=== PATIENT | female | born 1955 | race Caucasian/White ===

== ENCOUNTER → 2017-08-25 10:12 | Outpatient (CLI) | payer OTHER, SELFPAY ==
--- NOTE | 2017-08-25 10:17 | CDU_ITS ---
Reason For Study: Stenosis Rt. Velocities/BP Lt. Velocities/BP Prox CCA 113/31 cm/sec. Prox CCA 114/31 cm/sec. Mid CCA 80/22 cm/sec. Mid CCA 97/28 cm/sec. Dist CCA 73/22 cm/sec. Dist CCA 71/26 cm/sec. Prox ICA 77/22 cm/sec. Prox ICA 91/25 cm/sec. Mid ICA 68/30 cm/sec. Mid ICA 67/30 cm/sec. Dist ICA 73/35 cm/sec. Dist ICA 99/43 cm/sec. Rt. ICA/CCA = 0.96. Lt. ICA/CCA = 1.02. Prox ECA 71/19 cm/sec. Prox ECA 68/15 cm/sec. Rt. Vert. 42/16 cm/sec. Lt. Vert. 43/18 cm/sec. Right Extracranial There is intimal thickening but no significant atherosclerotic plaque noted in the right common carotid artery. There is no significant atherosclerotic plaque noted in the right internal carotid artery. The right internal carotid artery is very tortuous. There is no significant atherosclerotic plaque noted in the right external carotid artery. Antegrade flow is noted in the right vertebral artery. Left Extracranial There is heterogeneous, irregular atherosclerotic plaque noted in the left common carotid artery. There is no significant atherosclerotic plaque noted in the left internal carotid artery. The left internal carotid artery is very tortuous. There is no significant atherosclerotic plaque noted in the left external carotid artery. Antegrade flow is noted in the left vertebral artery. Procedure Carotid Duplex [id number]. Exam performed in department. Interpretation Summary Mild (<50%) stenosis right extracranial internal carotid. Mild (<50%) stenosis left extracranial internal carotid. Flow within the vertebral arteries is antegrade bilaterally. Ordering Physician: Agnes Velazquez Referring Physician: Agnes Velazquez Performed By: Sharon Rosales, RDCS, RVT
== END ==
PROVIDERS: Family Provider Internal Medicine; PCP Internal Medicine; Visit Provider Internal Medicine
DX: I65.23 Occlusion and stenosis of bilateral carotid arteries (principal)
CPT/HCPCS: 93880

== ENCOUNTER → 2017-10-24 12:40 | Outpatient (CLI) | payer OTHER, SELFPAY ==
--- NOTE | 2017-10-24 12:51 | CT_ITS ---
STUDY: CT ABDOMEN AND PELVIS WITH CONTRAST REASON FOR EXAM: Female, 61 years old. 2 day history of left-sided abdominal pain. RADIATION DOSAGE (If Supplied By Facility): CTDIvol = ( 18.38 ) mGy, DLP = ( 1164.62 ) mGycm TECHNIQUE: Transaxial images were obtained from the dome of the diaphragm to the symphysis pubis without oral contrast. 100CC ml of Isovue 300 contrast was administered. Sagittal and coronal images were reconstructed. Individualized dose optimization techniques were used for this CT. COMPARISON: None. FINDINGS: Increased markings at the left lung base suggestive of possible scarring and/or atelectasis. The visualized portions of the heart are within normal limits. There is decreased attenuation of the liver consistent with steatosis. Normal gallbladder and extrahepatic biliary system. Normal spleen. There is diffuse atrophy of the pancreas. Normal bilateral adrenal glands. Normal right kidney. Normal left kidney. There is a large hiatal hernia composed mostly of the fundus of the stomach. Normal small intestine. There is diverticulosis, with thickening of the colon wall, and pericolonic inflammation changes consistent with acute diverticulitis. The appendix is visualized and appears normal. Normal abdominal aorta. Normal inferior vena cava. Normal retroperitoneum. Normal urinary bladder. Evidence of bilateral tubal ligation. There is a left-sided inguinal hernia containing adipose tissue. There are degenerative changes of the visualized lumbar spine. CT/Abdomen/Pelvis WITH Contrast IMPRESSION: Diffuse fatty infiltration of the liver. Findings ventricular noncomplicated acute sigmoid diverticulitis. Electronically Signed: Jose Miguel Prado MD at 13:23 EDT Tel [phone], Service support ,
[2017-10-24 13:05] LABS: CREATININE FINGERSTICK 0.8 mg/dL (0.55-1.02); EGFR FINGERSTICK > 60.0000 mL/min (>60)
[2017-10-24 13:12] LABS: ALB/GLOB Ratio 0.7 RATIO (0.9-2.4); AST(SGOT) 15 U/L (15-37); Alanine Aminotransfer ALT/SGPT 16 U/L (13-56); Albumin, Serum 3.2 g/dL (3.2-5.0); Alkaline Phosphatase 93 U/L (45-117); Anion Gap 8 (5-15); BUN 13 mg/dL (7-18); BUN/Creat Ratio 14.1 RATIO (10-20); Calcium,Total 8.9 mg/dL (8.5-10.1); Chloride 106 mmol/L (98-107); Creatinine, Serum 0.92 mg/dL (0.55-1.02); EST Glomerular Filtration Rate 66 mL/min (>60); Est Glom Filt Rate - Afr Amer 79 mL/min (>60); Globulin 4.3 g/dL (2.2-4.2); Glucose 124 mg/dL (74-106); Potassium 3.7 mmol/L (3.5-5.1); Protein, Total 7.5 g/dL (6.4-8.2); Sodium Level 141 mmol/L (136-145)
== END ==
PROVIDERS: Family Provider Internal Medicine; PCP Internal Medicine; Visit Provider Nurse Practitioner Gerontology
DX: R10.9 Unspecified abdominal pain (principal)
CPT/HCPCS: 36415; 74177; 80053; Q9967

== ENCOUNTER → 2017-12-13 13:01 | Outpatient (CLI) | payer OTHER, SELFPAY ==
[2017-12-13 13:26] LABS: Absolute Lymphocyte Count 2.66 X10^3/ul (0.83-4.51); Basophil# 0.03 X10^3/uL; Basophil% 0.3 % (0-1); Eosinophils% 0.9 % (0-5); Hematocrit 41.3 % (37-47); Hemoglobin 13.1 g/dl (12.0-15.0); Lymphocyte # 2.66 X10^3/ul (4.0); Mean Corp Hgb Conc 31.7 g/gl (32-36); Mean Corpuscular Hgb 27.3 pg (27.0-32.0); Mean Platelet Vol. 11.1 fl (6.2-12.0); Monocyte# 0.85 X10^3/uL; Neutrophil # 6.99 X10^3/uL (2.7-7.7); Neutrophil % 65.5 % (47-70); Platelet Count 286 K/mm3 (150-450); RBC Distribution Width CV 14.8 % (11.6-14.6); RBC Distribution Width SD 47.2 fl (35.1-43.9); White Blood Count 10.7 K/mm3 (4.4-11.0)
[2017-12-13 13:27] LABS: POSITIVE COUNT NO; POSITIVE DIFFERENTIAL NO; POSITIVE MORPHOLOGY NO
[2017-12-13 13:36] LABS: ALB/GLOB Ratio 0.7 RATIO (0.9-2.4); AST(SGOT) 13 U/L (15-37); Alanine Aminotransfer ALT/SGPT 17 U/L (13-56); Albumin, Serum 3.1 g/dL (3.2-5.0); Alkaline Phosphatase 96 U/L (45-117); Anion Gap 11 (5-15); BUN 13 mg/dL (7-18); BUN/Creat Ratio 13.1 RATIO (10-20); Calcium,Total 9.1 mg/dL (8.5-10.1); Chloride 103 mmol/L (98-107); Creatinine, Serum 0.99 mg/dL (0.55-1.02); EST Glomerular Filtration Rate 60 mL/min (>60); Est Glom Filt Rate - Afr Amer 73 mL/min (>60); Globulin 4.5 g/dL (2.2-4.2); Glucose 128 mg/dL (74-106); Potassium 3.7 mmol/L (3.5-5.1); Protein, Total 7.6 g/dL (6.4-8.2); Sodium Level 141 mmol/L (136-145)
== END ==
PROVIDERS: Family Provider Internal Medicine; PCP Internal Medicine; Visit Provider Nurse Practitioner
DX: R10.9 Unspecified abdominal pain (principal)
CPT/HCPCS: 36415; 74177; 80053; 85025; Q9967

== ENCOUNTER 2018-04-21 04:32 | Emergency (ER) | payer OTHER, SELFPAY ==
[2018-04-21 04:33] VITALS: BP 157/92; PULSE 104; RESP 16; TEMP 36.7; O2SAT 95; BMI 40.1
--- NOTE | 2018-04-21 04:43 | RAD_ITS ---
STUDY: X-RAY CHEST REASON FOR EXAM: Female, 62 years old. Vomiting, fatigue, chills, chest pain, shortness of breath onset this evening. Flulike symptoms or couple weeks. TECHNIQUE: PA and lateral views of the chest. COMPARISON: None. FINDINGS: Large hiatal hernia. There are superimposed monitor leads. The lungs are clear and expanded. There is no demonstrated pleural abnormality. Normal size heart. Normal mediastinum and alejandrina. Normal visualized pulmonary arteries. There is mild atherosclerotic tortuosity of the aortic arch and descending thoracic aorta. There are diffuse degenerative changes of the visualized thoracic spine. Normal visualized ribs, clavicles, and shoulders. There is no demonstrated abnormality of the visualized soft tissue structures of the upper abdomen. RAD/Chest PA and Lateral IMPRESSION: Large hiatal hernia. No pulmonary edema, congestive heart failure or confluent pneumonia. Other nonacute findings as outlined above. Electronically Signed: Loren Braxton MD at 5:11 EST , Service support ,
--- NOTE | 2018-04-21 04:43 | EKG12_ITS ---
Test Reason : CP Blood Pressure : / mmHG Vent. Rate : 102 BPM Atrial Rate : 102 BPM P-R Int : 134 ms QRS Dur : 074 ms QT Int : 358 ms P-R-T Axes : 050 079 050 degrees QTc Int : 466 ms Sinus tachycardia Nonspecific ST abnormality Abnormal ECG Confirmed by ALKA GAY, LINK ([id number]), managing editor LILLIE HASSAN ([id number] on 04/24/2018 4:36:52 PM Referred By: CYNTHIA Confirmed By:LINK RUCKER MD
--- NOTE | 2018-04-21 04:45 | ED.RN ---
NO OLD EKGS IN MUSE.
[2018-04-21 05:02] LABS: Absolute Lymphocyte Count 0.67 X10^3/ul (0.83-4.51); Absolute Neutrophil Count 6.9 X10^3/uL (2.0-7.7); Basophil# 0.01 X10^3/uL; Basophil% 0.1 % (0-1); Eosinophil# 0.02 X10^3/uL; Eosinophils% 0.3 % (0-5); Hematocrit 39.3 % (37-47); Hemoglobin 12.1 g/dl (12.0-15.0); Lymphocyte # 0.67 X10^3/ul (4.0); Lymphocyte % 8.6 % (19-41); Mean Corp Hgb Conc 30.8 g/gl (32-36); Mean Corpuscular Hgb 24.9 pg (27.0-32.0); Mean Platelet Vol. 10.6 fl (6.2-12.0); Monocyte# 0.16 X10^3/uL; Monocyte% 2.1 % (0-10); Neutrophil # 6.87 X10^3/uL (2.7-7.7); Neutrophil % 88.6 % (47-70); Platelet Count 293 K/mm3 (150-450); RBC Distribution Width CV 15.4 % (11.6-14.6); RBC Distribution Width SD 45.7 fl (35.1-43.9); Red Blood Count 4.85 M/mm3 (4.2-5.4); White Blood Count 7.8 K/mm3 (4.4-11.0)
[2018-04-21 05:05] LABS: POSITIVE COUNT NO; POSITIVE DIFFERENTIAL NO; POSITIVE MORPHOLOGY NO
[2018-04-21] MEDS: Aspirin 81 MG TAB.CHEW 324 MG PO (05:06)
[2018-04-21] MEDS: Mag Hydrox/Al Hydrox/Simeth 30 ML UDC PO (05:14)
[2018-04-21 05:19] LABS: Anion Gap 11 (5-15); BUN 19 mg/dL (7-18); BUN/Creat Ratio 20.7 RATIO (10-20); Calcium,Total 8.6 mg/dL (8.5-10.1); Chloride 107 mmol/L (98-107); Creatinine, Serum 0.92 mg/dL (0.55-1.02); EST Glomerular Filtration Rate 66 mL/min (>60); Est Glom Filt Rate - Afr Amer 80 mL/min (>60); Estimated Creatinine Clearance 47.23 ml/min; Glucose 169 mg/dL (74-106); Potassium 3.6 mmol/L (3.5-5.1); Sodium Level 143 mmol/L (136-145)
--- NOTE | 2018-04-21 05:38 | ED.DCSUM_ITS ---
- ER Visit Summary Date of Service: 04/21/18 Chief Complaint: Chest pain History of Present Illness: The patient is a 62 F presenting for evaluation secondary to chest pain. Patient reports that this evening she had an onset of chest pain at about 1:00. Patient states that at about 7 PM she had feelings of general illness including chills fever and nausea that progressed to vomiting. Patient reports that she has had a history of prior similar episodes in the past. She has a history of having a large hiatal hernia. Patient states that she has a continuous aching pressure type pain in her chest and upper abdomen. It is not associated with any sort of exacerbation with ambulation. It is associated with some belching and reflux type sensations. No shortness of breath. Patient has had a distant catheterization with no stents and a stress echo performed 3 years ago that was found to be negative. She has an underlying history of diabetes hypertension high cholesterol denies any DVT or PE risk factors. Physical Examination: Vital signs are within normal limits, patient is afebrile. General: Patient is well-nourished well-developed and in no acute distress. Head: Normocephalic, atraumatic Eyes: Pupils equal round and reactive bilaterally, extra occular motion intact bialterally ENT: Moist mucous membranes Neck: Supple, no lymphadenopathy, no JVD, no meningismus CVS: Heart regular rhythm minimal tachycardia, no murmurs, rubs or gallops, radial pulses 2+ bilaterally, 2+ PT pulses bilaterally symmetric Resp: Respirations nondistressed, lung sounds clear bilaterally Abdomen: Soft, minimal non-localizing tenderness to palpation with no guarding or rebound, nondistended, no palpable masses, normal bowel sounds Back: Nontender Extremities: Nontender, atraumatic, active full range of motion, no peripheral edema Skin: warm, no rashes, no petechia Neuro: Alert and oriented x 4, CN 2-12 intact, no lateralizing neurological defecits Psyc: Normal affect Test Results: EKG shows a sinus rate of [address] segments normal T waves. CBC chemistry and troponin are unremarkable. Chest x-ray demonstrates a large hiatal hernia which is per the patient's baseline Emergency Department Course and Treatment: Patient presented for evaluation secondary to chest pain. The patient's story that she gives really seems more consistent with dyspepsia, she was worked up for the possibility of cardiac etiology and was found to be negative. Patient's heart score is 3. Patient had improvement with aspirin and a GI cocktail. I reviewed patient's records and she had a normal stress echo about 3 years ago. This really seems consistent with a etiology of GI rather than cardiac or pulmonary. Patient was given reassurance and was discharged with follow-up with primary care. Disposition: Discharge Impression: 1. Dyspepsia 2. Hiatal hernia This note was generated with [employer] dictation software. It may contain incorrect words, spelling, and punctuation that were not noted in review of the chart prior to signing ED Disposition - Plan for ED Patient: Disposition: Home or Assisted Living Chief Complaint: Chest Pain Diagnosis: Dyspepsia, Hiatal hernia Instructions: What Is a Hiatal Hernia?, ED GERD Referrals: Agnes Velazquez DO [Primary Care Provider] - 1-2 Weeks
[2018-04-21 05:41] VITALS: BP 138/78; PULSE 94; RESP 16; O2SAT 95
== END 2018-04-21 05:48 | disposition home or self-care (01) ==
PROVIDERS: Emergency Provider Emergency Medicine; Family Provider Internal Medicine; PCP Internal Medicine
DX: R10.13 Epigastric pain (principal); K44.9 Diaphragmatic hernia without obstruction or gangrene; E11.9 Type 2 diabetes mellitus without complications; I10 Essential (primary) hypertension; E78.00 Pure hypercholesterolemia, unspecified; Z79.899 Other long term (current) drug therapy
CPT/HCPCS: 71046; 80048; 84484; 85025; 93005; 99285; A4216

== ENCOUNTER 2018-09-25 16:02 | Inpatient (IN) | payer OTHER, SELFPAY ==
[2018-09-25] VITALS (12 sets, daily range): BP systolic 121–164; BP diastolic 62–93; PULSE 62–78; RESP 13–18; TEMP 35.8–36.8; O2SAT 94–99; BMI 38.7; BMI 38.8; BMI 38.9
--- NOTE | 2018-09-25 16:05 | EKG12_ITS ---
Test Reason : CP Blood Pressure : / mmHG Vent. Rate : 074 BPM Atrial Rate : 074 BPM P-R Int : 148 ms QRS Dur : 076 ms QT Int : 410 ms P-R-T Axes : 042 039 040 degrees QTc Int : 455 ms Normal sinus rhythm Normal ECG Confirmed by CANDI ERVIN ([id number]), commissioning editor SWAPNA SKAGGS ([id number]) on 10/01/2018 10:20:34 AM Referred By: Amita Tsai Confirmed By:CANDI ERVIN
--- NOTE | 2018-09-25 16:15 | ED.DCSUM_ITS ---
History of Present Illness Chief Complaint: General Illness Informant: Patient Onset: Weeks - 2 Narrative: Patient sent in from PCP office for concerns for hyperglycemia with weakness. I discussed with Dr. Carvalho prior to her arrival. patient seen in the office, reporting worsening symptoms or last 2 weeks with polyuria and polydipsia. Patient known to be prediabetic last year. Patient did not follow-up with glucose testing. She is a history of asthma doing intermittent steroids last time was a few months ago. Reports that her symptoms, had a A1c today of 12.5. Reports during IV drawls, she had a vasovagal syncopal episode. She was orthostatic positive. EKG performed in the office reported with no acute changes. Complaint of increasing weakness has been on and off for the past few months. No chest pains, no cough. No fevers. Past med history of asthma, hypertension, fatty liver, hypothyroidism, anxiety. Prior similar symptoms: No Past Medical History - Allergies and Home Meds Allergies/Adverse Reactions: Allergies Penicillins [PCN] Allergy (Verified 09/25/18 16:03) Anaphylaxis Primary Care Physician: Agnes Velazquez DO [Primary Care Provider] - Smoking Status: Never smoker Review of Systems General: Denies: Chills, Fever, Sweats Eyes: Denies: Visual changes - bilaterally, Diplopia ENT: Denies: Rhinorrhea, Sore throat Cardiovascular: Denies: Chest pain, Palpitations Respiratory: Denies: Dyspnea, Cough, Dyspnea on exertion Gastrointestinal: Denies: Abdominal pain, Nausea, Vomiting, Diarrhea, Melena, Hematochezia Genitourinary: Denies: Dysuria, Hematuria, Frequency Musculoskeletal: Denies: Back pain, Extremity Pain Skin: Denies: Rash, Wounds Neurological: Denies: Headache, Weakness, Numbness Endocrine: Reports: Polyuria, Polydipsia Physical Exam Vital Signs/Narrative: Vital Signs Temp Pulse Resp BP Pulse Ox 09/25/18 16:03 98.3 F 77 18 131/93 H 94 Inital Vital Signs reviewed: Yes General: Well nourished, Well developed, No Acute Distress, - - mild fatigue Head: Normocephalic, Atraumatic Eyes: Perrl, EOMI ENT: Moist mucous membranes, No rhinorrhea Neck: Supple, Nontender Cardiovascular: Regular rate, Regular rhythm, No murmurs Respiratory: No distress, CTA bilaterally, Chest nontender Abdomen: Soft, Nontender, Nondistended, Normal bowel sounds Back: Nontender, Normal Inspection Extremities: Nontender, No edema Skin: Normal color, No rash Neurological: Alert, Oriented x3, Cranial nerves II-XII grossly intact, Normal Strength, Normal Sensation Psychological: Normal affect, Normal Mood Diagnostic/Tx/Re-eval Abnormal Lab Results 09/25/18 09/25/18 09/25/18 16:35 16:35 16:35 WBC 8.2 RBC 5.47 H Hgb 14.1 Hct 42.8 MCV 78.2 L MCH 25.8 L MCHC 32.9 RDW 15.5 H RDW Differential 44.6 H Plt Count 237 MPV 12.3 H Immature Gran % (Auto) 0.200 Neut % (Auto) 60.6 Lymph % (Auto) 28.8 Pettis % (Auto) 9.2 Eos % (Auto) 0.7 Baso % (Auto) 0.5 Absolute Neuts (auto) 5.0 Absolute Lymphs (auto) 2.35 Total Counted Not Reportable Differential Comment SCANNED Plt Morphology Comment LARGE Sodium 134 L Potassium 2.4 L* Chloride 97 L Carbon Dioxide 18.0 L Anion Gap 19 H BUN 16 Creatinine 0.96 Estim Creat Clear Calc 45.26 Est GFR (MDRD) Af Amer 76 Est GFR (MDRD) Non-Af 63 BUN/Creatinine Ratio 16.7 Glucose 341 H Calcium 8.8 Total Bilirubin 0.60 AST 20 ALT 19 Alkaline Phosphatase 99 Total Protein 7.3 Albumin 3.3 Globulin 4.0 Albumin/Globulin Ratio 0.8 L Urine Color Urine Clarity Urine pH Ur Specific [place] Urine Protein Urine Glucose (UA) Urine Ketones Urine Occult Blood Urine Nitrite Urine Bilirubin Urine Urobilinogen Ur Leukocyte Esterase Urine RBC Urine WBC Ur Squamous Epith Cells Amorphous Sediment Urine Bacteria Urine Mucus Urine Yeast Acetone Level MODERATE H POC Glucose 09/25/18 09/25/18 17:12 17:50 WBC RBC Hgb Hct MCV MCH MCHC RDW RDW Differential Plt Count MPV Immature Gran % (Auto) Neut % (Auto) Lymph % (Auto) [place] % (Auto) Eos % (Auto) Baso % (Auto) Absolute Neuts (auto) Absolute Lymphs (auto) Total Counted Differential Comment Plt Morphology Comment Sodium Potassium Chloride Carbon Dioxide Anion Gap BUN Creatinine Estim Creat Clear Calc Est GFR (MDRD) Af Amer Est GFR (MDRD) Non-Af BUN/Creatinine Ratio Glucose Calcium Total Bilirubin AST ALT Alkaline Phosphatase Total Protein Albumin Globulin Albumin/Globulin Ratio Urine Color Yellow Urine Clarity Sl. Cloudy Urine pH 5.0 Ur Specific [place] 1.025 Urine Protein 15 H Urine Glucose (UA) 1000 H Urine Ketones 150 H Urine Occult Blood Negative Urine Nitrite Negative Urine Bilirubin Negative Urine Urobilinogen Normal Ur Leukocyte Esterase 100 H Urine RBC 0 SEEN Urine WBC 5-10 SEEN Ur Squamous Epith Cells 0-5 SEEN Amorphous Sediment 1+ URATE Urine Bacteria 0 SEEN Urine Mucus 0 SEEN Urine Yeast 1+ Acetone Level POC Glucose 336 H - EKG Initial EKG Interpretation: Sinus Rhythm - Sinus rate of 75, no ST or T wave changes. QTc 482. - Medical Decision Making Patient nontoxic, IV fluids initiated. History of polyuria and polydipsia, DKA work-up initiated. Glucose 360, gap of 19, moderate ketones. Order for total 2 L normal saline to be bolus and continued IV fluids. Potassium 2.4. Magnesium added, able to tolerate oral therefore 40 mEq of potassium was ordered. EKG obtained sinus rate of 75 no acute changes. Patient with no focal neurological deficits. History syncopal after IV placement in the office. Likely vasovagal. Discussed with hospitalist Dr. Tsai, with patient being insulin na?ve will start after normal insulin dosing for drip. Patient was admitted to ICU. I did speak with strip mill operator Dr. Lopez and updated. - Critical Care Time Critical care time (excluding procedures): 30-74 minutes, Discussing w/Patient &/or Family/Consumer Loan Officer, Discussing w/Consultants, Arranging Admission or Transfer ED Disposition - Plan for ED Patient: Disposition: Acute Care Hospital [facility] Diagnosis: Diabetic ketoacidosis, Diabetes mellitus, new onset, Hypokalemia Referrals: Agnes Velazquez DO [Primary Care Provider] -
[2018-09-25] MEDS: 0.9% Normal Saline 1,000 ML 1000 ML IV (16:43)
[2018-09-25 17:20] LABS: Bedside Glucose 336 mg/dL (70-110)
[2018-09-25 17:22] LABS: ALB/GLOB Ratio 0.8 RATIO (0.9-2.4); AST(SGOT) 20 U/L (15-37); Alanine Aminotransfer ALT/SGPT 19 U/L (13-56); Albumin, Serum 3.3 g/dL (3.2-5.0); Alkaline Phosphatase 99 U/L (45-117); Anion Gap 19 (5-15); BUN 16 mg/dL (7-18); BUN/Creat Ratio 16.7 RATIO (10-20); Calcium,Total 8.8 mg/dL (8.5-10.1); Chloride 97 mmol/L (98-107); Creatinine, Serum 0.96 mg/dL (0.55-1.02); EST Glomerular Filtration Rate 63 mL/min (>60); Est Glom Filt Rate - Afr Amer 76 mL/min (>60); Estimated Creatinine Clearance 45.26 ml/min; Glucose 341 mg/dL (74-106); Potassium 2.4 mmol/L (3.5-5.1); Protein, Total 7.3 g/dL (6.4-8.2); Sodium Level 134 mmol/L (136-145)
[2018-09-25 17:25] LABS: Absolute Lymphocyte Count 2.35 X10^3/ul (0.83-4.51); Basophil# 0.04 X10^3/uL; Basophil% 0.5 % (0-1); Eosinophil# 0.06 X10^3/uL; Eosinophils% 0.7 % (0-5); Hematocrit 42.8 % (37-47); Hemoglobin 14.1 g/dl (12.0-15.0); Lymphocyte # 2.35 X10^3/ul (4.0); Lymphocyte % 28.8 % (19-41); Mean Corp Hgb Conc 32.9 g/gl (32-36); Mean Corpuscular Hgb 25.8 pg (27.0-32.0); Mean Corpuscular Volume 78.2 fL (81-99); Mean Platelet Vol. 12.3 fl (6.2-12.0); Monocyte# 0.75 X10^3/uL; Monocyte% 9.2 % (0-10); Neutrophil # 4.95 X10^3/uL (2.7-7.7); Neutrophil % 60.6 % (47-70); Platelet Count 237 K/mm3 (150-450); RBC Distribution Width CV 15.5 % (11.6-14.6); RBC Distribution Width SD 44.6 fl (35.1-43.9); Red Blood Count 5.47 M/mm3 (4.2-5.4); White Blood Count 8.2 K/mm3 (4.4-11.0)
--- NOTE | 2018-09-25 17:25 | ED.RN ---
2.[address] HICKMAN
[2018-09-25 17:28] LABS: POSITIVE COUNT NO; POSITIVE DIFFERENTIAL NO; POSITIVE MORPHOLOGY YES
[2018-09-25 17:29] LABS: Differential Indicated SCAN CRITERIA MET
[2018-09-25] MEDS: 0.9% Normal Saline 1,000 ML 999 ML IV (17:49)
[2018-09-25] MEDS: 0.9% Normal Saline 1,000 ML 150 ML IV ×2 (17:49→20:28)
[2018-09-25 17:56] LABS: Bacteria 0 SEEN /hpf (None Seen); Mucous, Urine 0 SEEN /hpf (<or=2+); Red Blood Cells-Urine 0 SEEN /hpf (0-5)
[2018-09-25 18:01] LABS: Color, Urine Yellow (Yellow); Glucose, Dipstick 1000 mg/dl (Normal); Leukocyte Esterase-Dipstick 100 /ul (Negative); Nitrite-Dipstick Negative (Negative); Occult Blood-Urine Negative /ul (Negative); Protein-Dipstick 15 mg/dl (Negative); Specific Gravity, Urine 1.025 (1.002-1.030); Urine Bilirubin Dipstick Negative (Negative); Urine Clarity Sl. Cloudy (Clear); Urine Urobilinogen Normal (Normal)
[2018-09-25 18:11] LABS: Differential Comment SCANNED; Platelet Morphology LARGE
[2018-09-25 18:22] LABS: Ketone-Dipstick 150 mg/dl (Negative)
[2018-09-25 18:27] LABS: Amorphous Sediment 1+ URATE; Squamous Epithelial Cells - UA 0-5 SEEN /hpf (5-10); White Blood Cells 5-10 SEEN /hpf (0-5); Yeast-Urine 1+ /hpf (None Seen)
--- NOTE | 2018-09-25 18:30 | HP.PCM_ITS ---
History of Present Illness Date of Admission: 09/25/18 Chief Complaint: Abnormal labs - Hyperglycemia The patient is a 62 year old F with pmhx of prediabetes, asthma, diverticulitis, HTN, fatty liver, hiatal hernia, and hypothyroidism, who presents to the ER after being sent by her PCP for abnormal labs primarily hyperglycemia and A1C 12.5. She presents with a primary complaint of weakness. Over the past 2 weeks she has had increased thirst, drinking water all day long and constantly having to urinate without satiation. She is very tired, and has generalized all over weakness. She notes that she has lost 20 lbs over the past 2 weeks. She had some dizziness this AM, and also passed out during blood draw at the office felt to be vasovagal syncope. She had some nausea with that however now this is gone. In the ER she appears to be in DKA with blood sugar of 341, elevated anion gap of 19, moderate acetone, UA with elevated protein, glucose, and ketones. She does not have any respiratory complaints. She states her father and multiple siblings have diabetes and they all had an onset about her current age. [] Past Medical History Allergies Penicillins [PCN] Allergy (Verified 09/25/18 16:03) Anaphylaxis Home Medications: Ambulatory Orders Medication Instructions Recorded Escitalopram Oxalate [Lexapro] 10 mg PO DAILY 04/21/18 Fluticasone/Salmeterol [Advair 1 puff IH BID 04/21/18 500-50 Diskus] Hydrochlorothiazide [Hctz] 25 mg PO DAILY 04/21/18 Levothyroxine Sodium [Synthroid] 50 mg PO DAILY 04/21/18 Omeprazole 20 mg PO DAILY 04/21/18 Potassium Chloride [Klor-Con M20] 20 mcg PO DAILY 04/21/18 Simvastatin [Zocor] 10 mg PO DAILY 04/21/18 Cholecalciferol (Vitamin D3) 2,000 unit PO DAILY 09/25/18 [Vitamin D3] Diltiazem HCl [Diltiazem ER] 180 mg PO DAILY 09/25/18 Surgical History: tonsillectomy, - - tubal Psychiatric History: No pertinent psych hx 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 Denies: Chills, Fever, Weight Change HEENT: Denies: Head Aches, Sinus Congestion, Sinus Drainage Cardiovascular: Denies: Chest Pain, Palpitations Respiratory: Denies: Cough, Shortness of breath at rest, Sputum production Gastrointestinal: Denies: Abdominal Pain, Nausea, Vomiting Genitourinary: Denies: Dysuria Musculoskeletal: Denies: Joint Pain, Joint Tenderness Skin: Denies: Rash, Wounds Neurological: Denies: Numbness, Tingling, Focal weakness Psychiatric: Denies: Anxiety, Depression, Homicidal Ideations, Suicidal Ideations Hematologic/ Lymphatic: Denies: Easy Bruising, Easy Bleeding VTE Information - Inpt Only VTE Present on Admission: No VTE Mechan Device Prophylaxis: None VTE Pharm Prophylaxis ordered?: Yes - Physical Exam General: Alert, Oriented x3, Cooperative, Lethargic HEENT: Atraumatic, PERRLA, EOMI, Normocephalic Neck: Supple, No JVD, Negative Carotid Bruits Lungs: Clear to auscultation, Normal air movement Cardiovascular: Regular rate, No murmurs Abdomen: Bowel Sounds Present, Soft, Non Tender Extremities: No edema, Capillary Refill Less than 3 Seconds Skin: No rashes, No breakdown Musculoskeletal: No Tenderness to Palpation of Joints or Extremities Neurological: Cranial nerves II-XII grossly intact Psych/Mental Status: Normal Affect, Appropriate, Alert and oriented to time, place, person, mood and affect Vital Signs Temp Pulse Resp BP Pulse Ox 98.3 F 71 16 134/78 H 95 09/25/18 16:03 09/25/18 18:17 09/25/18 18:17 09/25/18 18:17 09/25/18 18:17 Oxygen Delivery Method Room Air Weight: 210 lb 5.136 oz Body Mass Index (BMI) 38.7 Finger Stick Blood Glucose 336 Laboratory Tests Past 24 Hrs 09/25/18 09/25/18 09/25/18 16:35 16:35 16:35 WBC 8.2 RBC 5.47 H Hgb 14.1 Hct 42.8 MCV 78.2 L MCH 25.8 L MCHC 32.9 RDW 15.5 H RDW Differential 44.6 H Plt Count 237 MPV 12.3 H Immature Gran % (Auto) 0.200 Neut % (Auto) 60.6 Lymph % (Auto) 28.8 Ross % (Auto) 9.2 Eos % (Auto) 0.7 Baso % (Auto) 0.5 Absolute Neuts (auto) 5.0 Absolute Lymphs (auto) 2.35 Total Counted Not Reportable Differential Comment SCANNED Plt Morphology Comment LARGE Sodium 134 L Potassium 2.4 L* Chloride 97 L Carbon Dioxide 18.0 L Anion Gap 19 H BUN 16 Creatinine 0.96 Estim Creat Clear Calc 45.26 Est GFR (MDRD) Af Amer 76 Est GFR (MDRD) Non-Af 63 BUN/Creatinine Ratio 16.7 Glucose 341 H Calcium 8.8 Magnesium Total Bilirubin 0.60 AST 20 ALT 19 Alkaline Phosphatase 99 Total Protein 7.3 Albumin 3.3 Globulin 4.0 Albumin/Globulin Ratio 0.8 L Urine Color Urine Clarity Urine pH Ur Specific [place] Urine Protein Urine Glucose (UA) Urine Ketones Urine Occult Blood Urine Nitrite Urine Bilirubin Urine Urobilinogen Ur Leukocyte Esterase Urine RBC Urine WBC Ur Squamous Epith Cells Amorphous Sediment Urine Bacteria Urine Mucus Urine Yeast Acetone Level MODERATE H 09/25/18 09/25/18 16:35 17:50 WBC RBC Hgb Hct MCV MCH MCHC RDW RDW Differential Plt Count MPV Immature Gran % (Auto) Neut % (Auto) Lymph % (Auto) Ross % (Auto) Eos % (Auto) Baso % (Auto) Absolute Neuts (auto) Absolute Lymphs (auto) Total Counted Differential Comment Plt Morphology Comment Sodium Potassium Chloride Carbon Dioxide Anion Gap BUN Creatinine Estim Creat Clear Calc Est GFR (MDRD) Af Amer Est GFR (MDRD) Non-Af BUN/Creatinine Ratio Glucose Calcium Magnesium Pending Total Bilirubin AST ALT Alkaline Phosphatase Total Protein Albumin Globulin Albumin/Globulin Ratio Urine Color Yellow Urine Clarity Sl. Cloudy Urine pH 5.0 Ur Specific [place] 1.025 Urine Protein 15 H Urine Glucose (UA) 1000 H Urine Ketones 150 H Urine Occult Blood Negative Urine Nitrite Negative Urine Bilirubin Negative Urine Urobilinogen Normal Ur Leukocyte Esterase 100 H Urine RBC 0 SEEN Urine WBC 5-10 SEEN Ur Squamous Epith Cells 0-5 SEEN Amorphous Sediment 1+ URATE Urine Bacteria 0 SEEN Urine Mucus 0 SEEN Urine Yeast 1+ Acetone Level POC Glucose 09/25/18 17:12 POC Glucose 336 H Assessment/Plan 1. New onset DMt2 with DKA - recent a1c 12.9, presents with lethargy, hyperglycemia, elevated anion gap, + acetones, + UA c/w DKA. Aggressive hydration, electrolyte replacement, insulin drip. Place in ICU overnight. Plastic Injection Mold Maker eval in AM. 2. Hypokalemia - IV repletion, check mag and phos replete per protocol 3. Asthma - no respiratory symptoms, prn albuterol. continue singulair, pulmicort. 4. Hx HTN - stable. hold hctz with hyponatremia. continue cardizem. 5. Hypothyroidism - Check TSH, continue synthroid 6. Hx Fatty liver - LFTs normal. 7. Hx Hiatal hernia - continue PPI 8. Hx diverticulitis - no abd pain. 9. Anx/depression - lexapro 10. HLD - statin. DVT ppx: lovenox DC planning: lives alone, likely home no needs at dc. This patient was seen by Chidi Bar PA-C under the supervision of Dr. Tsai.
[2018-09-25 18:43] LABS: Magnesium 1.7 mg/dL (1.6-2.6)
[2018-09-25 18:49] LABS: Phosphorus 3.4 mg/dL (2.5-4.9)
--- NOTE | 2018-09-25 19:01 | EKG12_ITS ---
Test Reason : AM Blood Pressure : / mmHG Vent. Rate : 066 BPM Atrial Rate : 066 BPM P-R Int : 138 ms QRS Dur : 082 ms QT Int : 400 ms P-R-T Axes : 067 065 053 degrees QTc Int : 419 ms Normal sinus rhythm Normal ECG When compared with ECG of 26-SEP-2018 04:53, MANUAL COMPARISON REQUIRED, DATA IS UNCONFIRMED Confirmed by CRISTINA GAY, GENA ([id number]), film editor supervisor SWAPNA SKAGGS ([id number]) on 10/01/2018 11:58:18 AM Referred By: Amita Tsai Confirmed By:ANTONIO EVANS MD
--- NOTE | 2018-09-25 19:05 | ED.RN ---
PT REPORTS CHEST PRESSURE WHEN SITTING UP, IMPROVES WHEN RESTING BACK BUT NOW HAS MILD/MOD JAW PAIN. OVERAL PT IS MORE FATIGUED AND DROWSIY BUT REMAINS RESPONSIVE AND ANSWERING QUESTIONS. DR DANG UPDATED. NEW ORDERS
--- NOTE | 2018-09-25 19:20 | ED.RN ---
TRANSPROTED TO ICU. ICU NURSE UPDATED. PT MORE LETHARGIC THAN IN ED, ICU NURSES PAGGABO FARMER FOR CHANGE IN STATUS AND ASSUMING CARE. BOLUS COMEPLETE AT THIS TIME. INSULIN DRIP BEING INITIATED
[2018-09-25 19:46] LABS: Bedside Glucose 323 mg/dL (70-110)
[2018-09-25 20:26] LABS: Bedside Glucose 316 mg/dL (70-110)
[2018-09-25] MEDS: Potassium Chloride 10mEq/100mL 10 MEQ/100 ML IV.SOLN. 100 MEQ IV BOLUS ×3 (20:28→23:19)
[2018-09-25] MEDS: Aspirin 81 MG TAB.CHEW PO (21:01)
[2018-09-25] MEDS: Famotidine 20 MG Tablet PO (21:01)
[2018-09-25] MEDS: Montelukast 10 MG Tablet 5 MG PO (21:01)
[2018-09-25] MEDS: Atorvastatin Calcium 10 MG Tablet 5 MG PO (21:01)
[2018-09-25 21:20] LABS: Anion Gap 15 (5-15); BUN 13 mg/dL (7-18); BUN/Creat Ratio 12.9 RATIO (10-20); Calcium,Total 8.1 mg/dL (8.5-10.1); Chloride 102 mmol/L (98-107); Creatinine, Serum 1.01 mg/dL (0.55-1.02); EST Glomerular Filtration Rate 59 mL/min (>60); Est Glom Filt Rate - Afr Amer 71 mL/min (>60); Estimated Creatinine Clearance 43.02 ml/min; Glucose 290 mg/dL (74-106); Potassium 3.3 mmol/L (3.5-5.1); Sodium Level 135 mmol/L (136-145)
[2018-09-25 21:22] LABS: Lipase 93 U/L (73-393)
[2018-09-25 21:25] LABS: Bedside Glucose 261 mg/dL (70-110)
[2018-09-25 21:26] LABS: Hemoglobin A1c 12.5 % (4.2-6.3)
[2018-09-25] MEDS: Ipratropium/Albuterol Sulfate 3 ML AMPUL.NEB INHALATION (22:09)
[2018-09-25 22:20] LABS: Bedside Glucose 192 mg/dL (70-110)
[2018-09-25] MEDS: Dext 5%-0.45% NS 1,000 ML 150 ML IV (23:17)
[2018-09-25] MEDS: 0.9% NaCl Peripheral Flush Adult/Peds IV (23:25)
[2018-09-25 23:31] LABS: Bedside Glucose 189 mg/dL (70-110)
[2018-09-25 23:51] LABS: Anion Gap 12 (5-15); BUN 10 mg/dL (7-18); BUN/Creat Ratio 13.3 RATIO (10-20); Calcium,Total 7.4 mg/dL (8.5-10.1); Chloride 108 mmol/L (98-107); Creatinine, Serum 0.75 mg/dL (0.55-1.02); EST Glomerular Filtration Rate 83 mL/min (>60); Est Glom Filt Rate - Afr Amer 100 mL/min (>60); Estimated Creatinine Clearance 57.94 ml/min; Glucose 195 mg/dL (74-106); Potassium 3.4 mmol/L (3.5-5.1); Sodium Level 138 mmol/L (136-145)
[2018-09-26] VITALS (19 sets, daily range): BP systolic 95–140; BP diastolic 38–79; PULSE 65–95; RESP 11–18; TEMP 36.3–36.9; O2SAT 92–97
[2018-09-26 00:36] LABS: Bedside Glucose 234 mg/dL (70-110)
[2018-09-26] MEDS: Potassium Chloride 10mEq/100mL 10 MEQ/100 ML IV.SOLN. 100 MEQ IV BOLUS (01:02)
[2018-09-26 01:36] LABS: Bedside Glucose 243 mg/dL (70-110)
[2018-09-26 02:40] LABS: Bedside Glucose 242 mg/dL (70-110)
[2018-09-26 03:35] LABS: Bedside Glucose 217 mg/dL (70-110)
[2018-09-26] MEDS: 0.9% NaCl Peripheral Flush Adult/Peds IV ×3 (04:50→10:52)
[2018-09-26] MEDS: Acetaminophen 325 MG Tablet 650 MG PO ×3 (04:50→18:43)
[2018-09-26 04:51] LABS: Bedside Glucose 162 mg/dL (70-110)
--- NOTE | 2018-09-26 05:08 | NURSING ---
am blood draw right hand. 1 attempt.
[2018-09-26 05:24] LABS: Absolute Lymphocyte Count 1.97 X10^3/ul (0.83-4.51); Absolute Neutrophil Count 3.8 X10^3/uL (2.0-7.7); Basophil# 0.03 X10^3/uL; Basophil% 0.4 % (0-1); Eosinophil# 0.12 X10^3/uL; Eosinophils% 1.8 % (0-5); Hematocrit 36.3 % (37-47); Lymphocyte # 1.97 X10^3/ul (4.0); Lymphocyte % 29.5 % (19-41); Mean Corp Hgb Conc 33.1 g/gl (32-36); Mean Corpuscular Hgb 25.5 pg (27.0-32.0); Mean Corpuscular Volume 77.1 fL (81-99); Mean Platelet Vol. 12.6 fl (6.2-12.0); Monocyte# 0.73 X10^3/uL; Monocyte% 10.9 % (0-10); Neutrophil # 3.79 X10^3/uL (2.7-7.7); Platelet Count 204 K/mm3 (150-450); RBC Distribution Width CV 15.7 % (11.6-14.6); RBC Distribution Width SD 42.8 fl (35.1-43.9); Red Blood Count 4.71 M/mm3 (4.2-5.4); White Blood Count 6.7 K/mm3 (4.4-11.0)
[2018-09-26 05:37] LABS: POSITIVE COUNT NO; POSITIVE DIFFERENTIAL NO; POSITIVE MORPHOLOGY NO
[2018-09-26 05:55] LABS: Anion Gap 10 (5-15); BUN 8 mg/dL (7-18); BUN/Creat Ratio 12.4 RATIO (10-20); Calcium,Total 7.6 mg/dL (8.5-10.1); Chloride 112 mmol/L (98-107); Cholesterol 102 mg/dL (200); Creatinine, Serum 0.64 mg/dL (0.55-1.02); EST Glomerular Filtration Rate 99 mL/min (>60); Est Glom Filt Rate - Afr Amer 120 mL/min (>60); Estimated Creatinine Clearance 67.89 ml/min; Glucose 161 mg/dL (74-106); High Density Lipoprotein 48 mg/dL; Magnesium 1.8 mg/dL (1.6-2.6); Phosphorus 1.3 mg/dL (2.5-4.9); Potassium 3.2 mmol/L (3.5-5.1); Sodium Level 142 mmol/L (136-145); Triglycerides 103 mg/dL; Very Low Density Lipoprotein 21 mg/dL (5-40)
--- NOTE | 2018-09-26 05:55 | EKG12_ITS ---
Test Reason : GEN ILLNESS Blood Pressure : / mmHG Vent. Rate : 075 BPM Atrial Rate : 075 BPM P-R Int : 146 ms QRS Dur : 084 ms QT Int : 432 ms P-R-T Axes : 043 030 039 degrees QTc Int : 482 ms Normal sinus rhythm Normal ECG Confirmed by CANDI ERVIN ([id number]), editorial cartoonist SWAPNA SKAGGS ([id number]) on 10/01/2018 10:14:58 AM Referred By: Amita Tsai Confirmed By:CANDI ERVIN
[2018-09-26] MEDS: Levothyroxine 50 MCG Tablet PO (06:42)
[2018-09-26] MEDS: Ipratropium/Albuterol Sulfate 3 ML AMPUL.NEB INHALATION (06:48)
[2018-09-26 07:00] LABS: Bedside Glucose 158 mg/dL (70-110)
[2018-09-26 07:46] LABS: Bedside Glucose 168 mg/dL (70-110)
--- NOTE | 2018-09-26 07:54 | PN_ITS ---
Patient Problems: Active and Suspected Problems Diabetic ketoacidosis (Acute) Diabetes mellitus, new onset (Acute) Hypokalemia (Acute) Subjective: The patient was seen independently and in conjunction with ALEXI Buchanan. The patient is a 62-year-old female with a past medical history of asthma, pre- diabetes mellitus type 2, hypertension, hyperlipidemia, hypothyroidism, anxiety/depression, GERD and morbid obesity who presented to the [facility] emergency department on 09/25/2018 complaining of 1 to 2 weeks of increasing fatigue, lethargy, polydipsia and polyuria. She had a 20 pound weight loss over the preceding 2 to 3 weeks. On the day of admission she had a syncopal event while having a blood draw at her primary care physician's office. Vital signs at presentation to the emergency department were temperature 98.3, pulse rate 77, blood pressure 131/93, respiratory rate 18 and she was 94% saturated on room air. White blood cell count was within normal limits and the differential was unremarkable. Hemoglobin and platelets were within normal limits. Potassium is markedly decreased at 2.4 and the serum bicarb was 18. The anion gap was increased at 19 and the random blood sugar was 341. Hemoglobin A1c was 12.5. Calcium corrected for hypoalbuminemia was within normal limits. Phosphorus and magnesium were normal. LFTs were unremarkable. Troponin was less than 0.015. UA showed 5-10 white blood cells per high-power field with +1 urate crystals and no bacteria. urine culture was not sent. Acetone was moderate. No CXR was done. She was admitted to the ICU and the DKA protocol was initiated. While in the ICU she c/o chest pain. EKG was normal. She has been afebrile since admission. Vital signs are stable. the anion gap has been closed for the past 2 BMP's. All lab was personally reviewed. White blood cell count remains normal at 6.7 with a normal differential. Hemoglobin is 12 and the platelets are within normal limits. The MCV is low at 77.1 and the RDW is increased at 15.7. Platelets remain within normal limits. Potassium is low at 3.2 and the serum bicarb is now 20. The anion gap is 10. BUN is 8 with a creatinine of 0.64. Calcium is low at 7.6 and the albumin is pending. Phosphorus is low at 1.3 and the magnesium is 1.8. Serial cardiac enzymes were negative. Triglycerides are 103 and the total cholesterol is 102. LDL is 33 with an HDL of 48. Lipase was normal. Denies any hx of pancreatitis. No sign infection. Not recently on steroids. t here is a very strong FH of DM Denies cough, dysuria, fever, chills, or any recent cellulitis Objective: PHYSICAL EXAM: GENERAL: alert, oriented X 3, Cooperative, NAD ORAL: moist mucosa, no mucosal lesions NECK: No JVD, supple, trachea midline LUNGS: CTA, symmetric chest expansion HEART: RRR, Normal S1 and S2, no rub, no gallop ABDOMEN: soft, NT, ND, BS present, no guarding with palpation EXTREMITIES: no edema, no cyanosis, no calf tenderness SKIN: No rashes, no breakdown NEUROLOGIC: no focal neurologic deficits PSYCH: appropriate, normal affect, pleasant - Physical Exam Vital Signs Temp Pulse Resp BP Pulse Ox 97.9 F 66 16 129/73 H 92 09/26/18 04:00 09/26/18 06:00 09/26/18 06:00 09/26/18 06:00 09/26/18 06:00 Oxygen Delivery Method Room Air Weight: 213 lb 2.992 oz Body Mass Index (BMI) 38.9 Finger Stick Blood Glucose 323 Intake and Output for Last 24 Hours 09/24/18 09/25/18 09/26/18 23:59 23:59 23:59 Intake Total 553 / 553 1450 / 1450 Output Total 600 / 600 950 / 950 Balance -47 / -47 500 / 500 Laboratory Tests Past 24 Hrs 09/25/18 09/25/18 09/25/18 16:35 16:35 16:35 WBC 8.2 RBC 5.47 H Hgb 14.1 Hct 42.8 MCV 78.2 L MCH 25.8 L MCHC 32.9 RDW 15.5 H RDW Differential 44.6 H Plt Count 237 MPV 12.3 H Immature Gran % (Auto) 0.200 Neut % (Auto) 60.6 Lymph % (Auto) 28.8 [place] % (Auto) 9.2 Eos % (Auto) 0.7 Baso % (Auto) 0.5 Absolute Neuts (auto) 5.0 Absolute Lymphs (auto) 2.35 Total Counted Not Reportable Differential Comment SCANNED Plt Morphology Comment LARGE Sodium 134 L Potassium 2.4 L* Chloride 97 L Carbon Dioxide 18.0 L Anion Gap 19 H BUN 16 Creatinine 0.96 Estim Creat Clear Calc 45.26 Est GFR (MDRD) Af Amer 76 Est GFR (MDRD) Non-Af 63 BUN/Creatinine Ratio 16.7 Glucose 341 H Hemoglobin A1c Calcium 8.8 Phosphorus Magnesium Total Bilirubin 0.60 AST 20 ALT 19 Alkaline Phosphatase 99 Troponin I Total Protein 7.3 Albumin 3.3 Globulin 4.0 Albumin/Globulin Ratio 0.8 L Triglycerides Cholesterol LDL Cholesterol VLDL Cholesterol HDL Cholesterol Lipase Urine Color Urine Clarity Urine pH Ur Specific [place] Urine Protein Urine Glucose (UA) Urine Ketones Urine Occult Blood Urine Nitrite Urine Bilirubin Urine Urobilinogen Ur Leukocyte Esterase Urine RBC Urine WBC Ur Squamous Epith Cells Amorphous Sediment Urine Bacteria Urine Mucus Urine Yeast Acetone Level MODERATE H 09/25/18 09/25/18 09/25/18 16:35 16:35 17:50 WBC RBC Hgb Hct MCV MCH MCHC RDW RDW Differential Plt Count MPV Immature Gran % (Auto) Neut % (Auto) Lymph % (Auto) [place] % (Auto) Eos % (Auto) Baso % (Auto) Absolute Neuts (auto) Absolute Lymphs (auto) Total Counted Differential Comment Plt Morphology Comment Sodium Potassium Chloride Carbon Dioxide Anion Gap BUN Creatinine Estim Creat Clear Calc Est GFR (MDRD) Af Amer Est GFR (MDRD) Non-Af BUN/Creatinine Ratio Glucose Hemoglobin A1c Calcium Phosphorus 3.4 Magnesium 1.7 Total Bilirubin AST ALT Alkaline Phosphatase Troponin I Total Protein Albumin Globulin Albumin/Globulin Ratio Triglycerides Cholesterol LDL Cholesterol VLDL Cholesterol HDL Cholesterol Lipase Urine Color Yellow Urine Clarity Sl. Cloudy Urine pH 5.0 Ur Specific [place] 1.025 Urine Protein 15 H Urine Glucose (UA) 1000 H Urine Ketones 150 H Urine Occult Blood Negative Urine Nitrite Negative Urine Bilirubin Negative Urine Urobilinogen Normal Ur Leukocyte Esterase 100 H Urine RBC 0 SEEN Urine WBC 5-10 SEEN Ur Squamous Epith Cells 0-5 SEEN Amorphous Sediment 1+ URATE Urine Bacteria 0 SEEN Urine Mucus 0 SEEN Urine Yeast 1+ Acetone Level 09/25/18 09/25/18 09/25/18 19:05 20:05 20:05 WBC RBC Hgb Hct MCV MCH MCHC RDW RDW Differential Plt Count MPV Immature Gran % (Auto) Neut % (Auto) Lymph % (Auto) [place] % (Auto) Eos % (Auto) Baso % (Auto) Absolute Neuts (auto) Absolute Lymphs (auto) Total Counted Differential Comment Plt Morphology Comment Sodium 135 L Potassium 3.3 L Chloride 102 Carbon Dioxide 18.0 L Anion Gap 15 BUN 13 Creatinine 1.01 Estim Creat Clear Calc 43.02 Est GFR (MDRD) Af Amer 71 Est GFR (MDRD) Non-Af 59 L BUN/Creatinine Ratio 12.9 Glucose 290 H Hemoglobin A1c Calcium 8.1 L Phosphorus Magnesium Total Bilirubin AST ALT Alkaline Phosphatase Troponin I < 0.015 Total Protein Albumin Globulin Albumin/Globulin Ratio Triglycerides Cholesterol LDL Cholesterol VLDL Cholesterol HDL Cholesterol Lipase 93 Urine Color Urine Clarity Urine pH Ur Specific [place] Urine Protein Urine Glucose (UA) Urine Ketones Urine Occult Blood Urine Nitrite Urine Bilirubin Urine Urobilinogen Ur Leukocyte Esterase Urine RBC Urine WBC Ur Squamous Epith Cells Amorphous Sediment Urine Bacteria Urine Mucus Urine Yeast Acetone Level 09/25/18 09/25/18 09/25/18 20:05 22:05 23:25 WBC RBC Hgb Hct MCV MCH MCHC RDW RDW Differential Plt Count MPV Immature Gran % (Auto) Neut % (Auto) Lymph % (Auto) [place] % (Auto) Eos % (Auto) Baso % (Auto) Absolute Neuts (auto) Absolute Lymphs (auto) Total Counted Differential Comment Plt Morphology Comment Sodium 138 Potassium 3.4 L Chloride 108 H Carbon Dioxide 18.0 L Anion Gap 12 BUN 10 Creatinine 0.75 Estim Creat Clear Calc 57.94 Est GFR (MDRD) Af Amer 100 Est GFR (MDRD) Non-Af 83 BUN/Creatinine Ratio 13.3 Glucose 195 H Hemoglobin A1c 12.5 H Calcium 7.4 L Phosphorus Magnesium Total Bilirubin AST ALT Alkaline Phosphatase Troponin I < 0.015 Total Protein Albumin Globulin Albumin/Globulin Ratio Triglycerides Cholesterol LDL Cholesterol VLDL Cholesterol HDL Cholesterol Lipase Urine Color Urine Clarity Urine pH Ur Specific [place] Urine Protein Urine Glucose (UA) Urine Ketones Urine Occult Blood Urine Nitrite Urine Bilirubin Urine Urobilinogen Ur Leukocyte Esterase Urine RBC Urine WBC Ur Squamous Epith Cells Amorphous Sediment Urine Bacteria Urine Mucus Urine Yeast Acetone Level 09/26/18 09/26/18 09/26/18 05:00 05:00 05:00 WBC 6.7 RBC 4.71 Hgb 12.0 Hct 36.3 L MCV 77.1 L MCH 25.5 L MCHC 33.1 RDW 15.7 H RDW Differential 42.8 Plt Count 204 MPV 12.6 H Immature Gran % (Auto) 0.400 Neut % (Auto) 57.0 Lymph % (Auto) 29.5 [place] % (Auto) 10.9 H Eos % (Auto) 1.8 Baso % (Auto) 0.4 Absolute Neuts (auto) 3.8 Absolute Lymphs (auto) 1.97 Total Counted Not Reportable Differential Comment Plt Morphology Comment Sodium 142 Potassium 3.2 L Chloride 112 H Carbon Dioxide 20.0 L Anion Gap 10 BUN 8 Creatinine 0.64 Estim Creat Clear Calc 67.89 Est GFR (MDRD) Af Amer 120 Est GFR (MDRD) Non-Af 99 BUN/Creatinine Ratio 12.4 Glucose 161 H Hemoglobin A1c Calcium 7.6 L Phosphorus 1.3 L Magnesium 1.8 Total Bilirubin AST ALT Alkaline Phosphatase Troponin I < 0.015 Total Protein Albumin Globulin Albumin/Globulin Ratio Triglycerides 103 Cholesterol 102 LDL Cholesterol 33 VLDL Cholesterol 21 HDL Cholesterol 48 Lipase Urine Color Urine Clarity Urine pH Ur Specific [place] Urine Protein Urine Glucose (UA) Urine Ketones Urine Occult Blood Urine Nitrite Urine Bilirubin Urine Urobilinogen Ur Leukocyte Esterase Urine RBC Urine WBC Ur Squamous Epith Cells Amorphous Sediment Urine Bacteria Urine Mucus Urine Yeast Acetone Level POC Glucose 09/26/18 09/26/18 09/26/18 07:41 06:45 04:34 POC Glucose 168 H 158 H 162 H 09/26/18 09/26/18 09/26/18 03:31 02:36 01:32 POC Glucose 217 H 242 H 243 H 09/26/18 09/25/18 09/25/18 00:30 23:16 22:02 POC Glucose 234 H 189 H 192 H 09/25/18 09/25/18 09/25/18 20:52 19:41 19:17 POC Glucose 261 H 316 H 323 H 09/25/18 17:12 POC Glucose 336 H Medical Necessity - Tobacco Use Smoking Status: Never smoker Tobacco Use: Non-smoker Assessment/Plan All Active Problems Diabetic ketoacidosis (Acute) Diabetes mellitus, new onset (Acute) Hypokalemia (Acute) Impressions 1. DKA 2. Diabetes mellitus type 1 is likely-no sign of intercurrent infection 3. Morbid obesity 4. Hypokalemia/hypomagnesemia/hypophosphatemia 5. History of asthma 6. Hypertension 7. Hypothyroidism 8. Hepatic steatosis 9. History of hiatal hernia 10. Diverticulosis 11. Anxiety/depression 12. Hyperlipidemia treat as a type I diabetic due to weight loss, and DKA with no source of infection or recent severe stress. Started on Lantus in the AM and mealtime scheduled insulin along with a SSI diabetic teaching Consult the weight inspector supplement the phos recheck BMP at noon and recheck lab in the AM Check ICA, GAD65, IA-2 To try and miner pick autoimmune mediated DMI Transfer to PCU Check a TSH and a T4 Code Visit Inpatient E&M: 91043 Subs Hosp L3
--- NOTE | 2018-09-26 08:04 | RAD_ITS ---
STUDY: X-RAY CHEST REASON FOR EXAM: Female, 62 years old. Shortness of breath/dyspnea. Hypokalemia. TECHNIQUE: Single AP portable view of the chest. COMPARISON: Comparison is made with prior study dated April 21, 2018. FINDINGS: Large hiatal hernia. Blunting of the left costophrenic angle suggestive of a small left pleural effusion with mild left basilar atelectasis. There is mild cardiac enlargement. Normal mediastinum and alejandrina. Normal visualized pulmonary arteries. Normal visualized aortic arch and descending thoracic aorta. Normal visualized thoracic spine. Normal visualized ribs, clavicles, and shoulders. There is no demonstrated abnormality of the visualized soft tissue structures of the upper abdomen. RAD/Chest 1 View (Portable) IMPRESSION: Large anal hernia. Small left pleural effusion with left basilar atelectasis. Electronically Signed: Jose Miguel Prado, at 13:23 EDT , Service support ,
[2018-09-26] MEDS: Insulin Lispro 100 UNIT/ML INSULN.PEN SC ×5 (08:11→16:57)
[2018-09-26] MEDS: Aspirin 81 MG TAB.CHEW PO (08:47)
[2018-09-26] MEDS: Montelukast 10 MG Tablet 5 MG PO ×2 (08:48→21:58)
[2018-09-26] MEDS: Famotidine 20 MG Tablet PO ×2 (08:48→21:58)
[2018-09-26] MEDS: Escitalopram Oxalate 10 MG Tablet PO (08:48)
[2018-09-26] MEDS: dilTIAZem CD 180 MG Capsule PO (08:48)
--- NOTE | 2018-09-26 08:58 | CASEMGMT ---
Addendum entered by Yusuf Beckford 09/26/18 10:25: Dr. Dill updated re: insulins and insurance coverage. Addendum entered by Yusuf Beckford 09/26/18 10:18: Call to pharmacy insurance for patient. Lantus is not covered under her insurance. Insurance recommendation is Basaglar first, then Levimir or Tresiba. Una HAN Original Note: RN CM Assessment Presentation: DKA. New diabetic type 2 Intro role of CM and purpose of RN CM assessment to patient and her daughter in room.Pt is awake, alert and able to participate in assessment. Demographics, PCP and Pharmacy verified. -Pt states she knew this was coming because my whole family is diabetic. Pt has not made significant dietary changes in recent past. Discussed blood glucose monitoring and teaching will be completed by nursing. [employer] [facility] will be available to discuss dietary changes and Diabetic Clinic. Pt is willing to participate in Diabetes Clinic. [facility] [employer] updated. Discussed DC planning- will have script for Blood glucose monitoring and medications. Pt and daughter stated pt may go home with daughter, or daughter may stay with pt for a few days. PCP: Dr. Agnes Velazquez [facility] 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 Insurance: [employer] Prescription Benefit: yes LNOK: Daughter, Elizabeth Napoles Living Arrangements: Lives in 2 story home with first floor set up. 2 steps into front of home, 3 steps in from garage. Transportation: drives, or daughter can drive DME: walker, cane- uses intermittently only HHC: none Patient DC goals: Home DC PLAN: Home. will need script for diabetic supplies and medications on dc. If pt goes home with daughter- have scripts sent to [facility]. Una HAN
[2018-09-26 09:06] LABS: Albumin, Serum 2.5 g/dL (3.2-5.0); Ferritin 9 ng/mL (8-252); Iron 72 ug/dL (50-170); Iron Binding Capacity,Total 370 ug/dL (250-450); PERCENT IRON SATURATION 19.5 % (15.0-55.0); T4 Free Direct 1.36 ng/dL (0.76-1.46); Thyroid Stim Hormone (TSH) 2.19 uIU/mL (0.358-3.74)
[2018-09-26] MEDS: Na Biphos/Potassium Phosphate PACKET 1 PACKET PO ×4 (10:28→21:59)
[2018-09-26 11:55] LABS: Bedside Glucose 312 mg/dL (70-110)
[2018-09-26] MEDS: Senna/Docusate Sodium 1 Tablet PO (13:13)
--- NOTE | 2018-09-26 15:14 | PN_ITS ---
Patient Problems: Active and Suspected Problems Diabetic ketoacidosis (Acute) Diabetes mellitus, new onset (Acute) Hypokalemia (Acute) Subjective: Pt resting comfortably in bed on PCU after being transitioned from ICU this AM. She reports a difficult night c/o stress with her new diagnosis. She continues to feel exhausted. No N/V/D. No cough/sob/dysuria/fevers chills. We discussed the differences between type 1 and type 2 diabetes and the importance of insulin therapy. We also discussed the risks of chronic multisystem diseases such as cardiovascular diseases, kidney diseases, effects on the brain and nervous system. She appears very anxious. - Physical Exam General: Alert, Oriented x3, Cooperative HEENT: Atraumatic, PERRLA, EOMI, Normocephalic Neck: Supple, No JVD, Negative Carotid Bruits Lungs: Clear to auscultation, Normal air movement Cardiovascular: Regular rate, No murmurs Abdomen: Bowel Sounds Present, Soft, Non Tender Extremities: No edema, Capillary Refill Less than 3 Seconds Skin: No rashes, No breakdown Musculoskeletal: No Tenderness to Palpation of Joints or Extremities Neurological: Cranial nerves II-XII grossly intact Psych/Mental Status: Appropriate, Anxious Vital Signs Temp Pulse Resp BP Pulse Ox 98.3 F 71 16 127/79 H 96 09/26/18 11:45 09/26/18 11:45 09/26/18 11:45 09/26/18 11:45 09/26/18 11:45 Oxygen Delivery Method Room Air Weight: 213 lb 2.992 oz Body Mass Index (BMI) 38.9 Finger Stick Blood Glucose 323 Intake and Output for Last 24 Hours 09/24/18 09/25/18 09/26/18 23:59 23:59 23:59 Intake Total 553 / 553 2157.9 / 2157.9 Output Total 600 / 600 1070 / 1070 Balance -47 / -47 1087.9 / 1087.9 Laboratory Tests Past 24 Hrs 09/25/18 09/25/18 09/25/18 16:35 16:35 16:35 WBC 8.2 RBC 5.47 H Hgb 14.1 Hct 42.8 MCV 78.2 L MCH 25.8 L MCHC 32.9 RDW 15.5 H RDW Differential 44.6 H Plt Count 237 MPV 12.3 H Immature Gran % (Auto) 0.200 Neut % (Auto) 60.6 Lymph % (Auto) 28.8 [place] % (Auto) 9.2 Eos % (Auto) 0.7 Baso % (Auto) 0.5 Absolute Neuts (auto) 5.0 Absolute Lymphs (auto) 2.35 Total Counted Not Reportable Differential Comment SCANNED Plt Morphology Comment LARGE Sodium 134 L Potassium 2.4 L* Chloride 97 L Carbon Dioxide 18.0 L Anion Gap 19 H BUN 16 Creatinine 0.96 Estim Creat Clear Calc 45.26 Est GFR (MDRD) Af Amer 76 Est GFR (MDRD) Non-Af 63 BUN/Creatinine Ratio 16.7 Glucose 341 H Hemoglobin A1c Calcium 8.8 Phosphorus Magnesium Iron TIBC Iron Saturation Ferritin Total Bilirubin 0.60 AST 20 ALT 19 Alkaline Phosphatase 99 Troponin I Total Protein 7.3 Albumin 3.3 Globulin 4.0 Albumin/Globulin Ratio 0.8 L Triglycerides Cholesterol LDL Cholesterol VLDL Cholesterol HDL Cholesterol Lipase TSH Free T4 Urine Color Urine Clarity Urine pH Ur Specific [place] Urine Protein Urine Glucose (UA) Urine Ketones Urine Occult Blood Urine Nitrite Urine Bilirubin Urine Urobilinogen Ur Leukocyte Esterase Urine RBC Urine WBC Ur Squamous Epith Cells Amorphous Sediment Urine Bacteria Urine Mucus Urine Yeast Acetone Level MODERATE H Miscellaneous Test 09/25/18 09/25/18 09/25/18 16:35 16:35 17:50 WBC RBC Hgb Hct MCV MCH MCHC RDW RDW Differential Plt Count MPV Immature Gran % (Auto) Neut % (Auto) Lymph % (Auto) [place] % (Auto) Eos % (Auto) Baso % (Auto) Absolute Neuts (auto) Absolute Lymphs (auto) Total Counted Differential Comment Plt Morphology Comment Sodium Potassium Chloride Carbon Dioxide Anion Gap BUN Creatinine Estim Creat Clear Calc Est GFR (MDRD) Af Amer Est GFR (MDRD) Non-Af BUN/Creatinine Ratio Glucose Hemoglobin A1c Calcium Phosphorus 3.4 Magnesium 1.7 Iron TIBC Iron Saturation Ferritin Total Bilirubin AST ALT Alkaline Phosphatase Troponin I Total Protein Albumin Globulin Albumin/Globulin Ratio Triglycerides Cholesterol LDL Cholesterol VLDL Cholesterol HDL Cholesterol Lipase TSH Free T4 Urine Color Yellow Urine Clarity Sl. Cloudy Urine pH 5.0 Ur Specific [place] 1.025 Urine Protein 15 H Urine Glucose (UA) 1000 H Urine Ketones 150 H Urine Occult Blood Negative Urine Nitrite Negative Urine Bilirubin Negative Urine Urobilinogen Normal Ur Leukocyte Esterase 100 H Urine RBC 0 SEEN Urine WBC 5-10 SEEN Ur Squamous Epith Cells 0-5 SEEN Amorphous Sediment 1+ URATE Urine Bacteria 0 SEEN Urine Mucus 0 SEEN Urine Yeast 1+ Acetone Level Miscellaneous Test 09/25/18 09/25/18 09/25/18 19:05 20:05 20:05 WBC RBC Hgb Hct MCV MCH MCHC RDW RDW Differential Plt Count MPV Immature Gran % (Auto) Neut % (Auto) Lymph % (Auto) [place] % (Auto) Eos % (Auto) Baso % (Auto) Absolute Neuts (auto) Absolute Lymphs (auto) Total Counted Differential Comment Plt Morphology Comment Sodium 135 L Potassium 3.3 L Chloride 102 Carbon Dioxide 18.0 L Anion Gap 15 BUN 13 Creatinine 1.01 Estim Creat Clear Calc 43.02 Est GFR (MDRD) Af Amer 71 Est GFR (MDRD) Non-Af 59 L BUN/Creatinine Ratio 12.9 Glucose 290 H Hemoglobin A1c Calcium 8.1 L Phosphorus Magnesium Iron TIBC Iron Saturation Ferritin Total Bilirubin AST ALT Alkaline Phosphatase Troponin I < 0.015 Total Protein Albumin Globulin Albumin/Globulin Ratio Triglycerides Cholesterol LDL Cholesterol VLDL Cholesterol HDL Cholesterol Lipase 93 TSH Free T4 Urine Color Urine Clarity Urine pH Ur Specific [place] Urine Protein Urine Glucose (UA) Urine Ketones Urine Occult Blood Urine Nitrite Urine Bilirubin Urine Urobilinogen Ur Leukocyte Esterase Urine RBC Urine WBC Ur Squamous Epith Cells Amorphous Sediment Urine Bacteria Urine Mucus Urine Yeast Acetone Level Miscellaneous Test 09/25/18 09/25/18 09/25/18 20:05 22:05 23:25 WBC RBC Hgb Hct MCV MCH MCHC RDW RDW Differential Plt Count MPV Immature Gran % (Auto) Neut % (Auto) Lymph % (Auto) [place] % (Auto) Eos % (Auto) Baso % (Auto) Absolute Neuts (auto) Absolute Lymphs (auto) Total Counted Differential Comment Plt Morphology Comment Sodium 138 Potassium 3.4 L Chloride 108 H Carbon Dioxide 18.0 L Anion Gap 12 BUN 10 Creatinine 0.75 Estim Creat Clear Calc 57.94 Est GFR (MDRD) Af Amer 100 Est GFR (MDRD) Non-Af 83 BUN/Creatinine Ratio 13.3 Glucose 195 H Hemoglobin A1c 12.5 H Calcium 7.4 L Phosphorus Magnesium Iron TIBC Iron Saturation Ferritin Total Bilirubin AST ALT Alkaline Phosphatase Troponin I < 0.015 Total Protein Albumin Globulin Albumin/Globulin Ratio Triglycerides Cholesterol LDL Cholesterol VLDL Cholesterol HDL Cholesterol Lipase TSH Free T4 Urine Color Urine Clarity Urine pH Ur Specific [place] Urine Protein Urine Glucose (UA) Urine Ketones Urine Occult Blood Urine Nitrite Urine Bilirubin Urine Urobilinogen Ur Leukocyte Esterase Urine RBC Urine WBC Ur Squamous Epith Cells Amorphous Sediment Urine Bacteria Urine Mucus Urine Yeast Acetone Level Miscellaneous Test 09/26/18 09/26/18 09/26/18 05:00 05:00 05:00 WBC 6.7 RBC 4.71 Hgb 12.0 Hct 36.3 L MCV 77.1 L MCH 25.5 L MCHC 33.1 RDW 15.7 H RDW Differential 42.8 Plt Count 204 MPV 12.6 H Immature Gran % (Auto) 0.400 Neut % (Auto) 57.0 Lymph % (Auto) 29.5 [place] % (Auto) 10.9 H Eos % (Auto) 1.8 Baso % (Auto) 0.4 Absolute Neuts (auto) 3.8 Absolute Lymphs (auto) 1.97 Total Counted Not Reportable Differential Comment Plt Morphology Comment Sodium 142 Potassium 3.2 L Chloride 112 H Carbon Dioxide 20.0 L Anion Gap 10 BUN 8 Creatinine 0.64 Estim Creat Clear Calc 67.89 Est GFR (MDRD) Af Amer 120 Est GFR (MDRD) Non-Af 99 BUN/Creatinine Ratio 12.4 Glucose 161 H Hemoglobin A1c Calcium 7.6 L Phosphorus 1.3 L Magnesium 1.8 Iron TIBC Iron Saturation Ferritin Total Bilirubin AST ALT Alkaline Phosphatase Troponin I < 0.015 Total Protein Albumin Globulin Albumin/Globulin Ratio Triglycerides 103 Cholesterol 102 LDL Cholesterol 33 VLDL Cholesterol 21 HDL Cholesterol 48 Lipase TSH Free T4 Urine Color Urine Clarity Urine pH Ur Specific [place] Urine Protein Urine Glucose (UA) Urine Ketones Urine Occult Blood Urine Nitrite Urine Bilirubin Urine Urobilinogen Ur Leukocyte Esterase Urine RBC Urine WBC Ur Squamous Epith Cells Amorphous Sediment Urine Bacteria Urine Mucus Urine Yeast Acetone Level Miscellaneous Test 09/26/18 09/26/18 09/26/18 05:00 10:20 10:20 WBC RBC Hgb Hct MCV MCH MCHC RDW RDW Differential Plt Count MPV Immature Gran % (Auto) Neut % (Auto) Lymph % (Auto) [place] % (Auto) Eos % (Auto) Baso % (Auto) Absolute Neuts (auto) Absolute Lymphs (auto) Total Counted Differential Comment Plt Morphology Comment Sodium Potassium Chloride Carbon Dioxide Anion Gap BUN Creatinine Estim Creat Clear Calc Est GFR (MDRD) Af Amer Est GFR (MDRD) Non-Af BUN/Creatinine Ratio Glucose Hemoglobin A1c Calcium Phosphorus Magnesium Iron 72 TIBC 370 Iron Saturation 19.5 Ferritin 9 Total Bilirubin AST ALT Alkaline Phosphatase Troponin I Total Protein Albumin 2.5 L Globulin Albumin/Globulin Ratio Triglycerides Cholesterol LDL Cholesterol VLDL Cholesterol HDL Cholesterol Lipase TSH 2.19 Free T4 1.36 Urine Color Urine Clarity Urine pH Ur Specific [place] Urine Protein Urine Glucose (UA) Urine Ketones Urine Occult Blood Urine Nitrite Urine Bilirubin Urine Urobilinogen Ur Leukocyte Esterase Urine RBC Urine WBC Ur Squamous Epith Cells Amorphous Sediment Urine Bacteria Urine Mucus Urine Yeast Acetone Level Miscellaneous Test Pending Pending 09/26/18 10:20 WBC RBC Hgb Hct MCV MCH MCHC RDW RDW Differential Plt Count MPV Immature Gran % (Auto) Neut % (Auto) Lymph % (Auto) [place] % (Auto) Eos % (Auto) Baso % (Auto) Absolute Neuts (auto) Absolute Lymphs (auto) Total Counted Differential Comment Plt Morphology Comment Sodium Potassium Chloride Carbon Dioxide Anion Gap BUN Creatinine Estim Creat Clear Calc Est GFR (MDRD) Af Amer Est GFR (MDRD) Non-Af BUN/Creatinine Ratio Glucose Hemoglobin A1c Calcium Phosphorus Magnesium Iron TIBC Iron Saturation Ferritin Total Bilirubin AST ALT Alkaline Phosphatase Troponin I Total Protein Albumin Globulin Albumin/Globulin Ratio Triglycerides Cholesterol LDL Cholesterol VLDL Cholesterol HDL Cholesterol Lipase TSH Free T4 Urine Color Urine Clarity Urine pH Ur Specific [place] Urine Protein Urine Glucose (UA) Urine Ketones Urine Occult Blood Urine Nitrite Urine Bilirubin Urine Urobilinogen Ur Leukocyte Esterase Urine RBC Urine WBC Ur Squamous Epith Cells Amorphous Sediment Urine Bacteria Urine Mucus Urine Yeast Acetone Level Miscellaneous Test Pending POC Glucose 09/26/18 09/26/18 09/26/18 11:44 07:41 06:45 POC Glucose 312 H 168 H 158 H 09/26/18 09/26/18 09/26/18 04:34 03:31 02:36 POC Glucose 162 H 217 H 242 H 09/26/18 09/26/18 09/25/18 01:32 00:30 23:16 POC Glucose 243 H 234 H 189 H 09/25/18 09/25/18 09/25/18 22:02 20:52 19:41 POC Glucose 192 H 261 H 316 H 09/25/18 09/25/18 19:17 17:12 POC Glucose 323 H 336 H Medical Necessity - Tobacco Use Smoking Status: Never smoker Tobacco Use: Non-smoker Assessment/Plan All Active Problems Diabetic ketoacidosis (Acute) Diabetes mellitus, new onset (Acute) Hypokalemia (Acute) 1. New onset Diabetes likely acquired T1 DM with DKA - a1c 12.5, presents with lethargy, hyperglycemia, elevated anion gap, + acetones, + UA c/w DKA. She received aggressive hydration, electrolyte replacement, insulin drip. -Imaging Engineer has met with the patient and provided education -gap closed -now on mealtime insulin with SSI and long acting. Note: when prescribing at DC her insurance will cover basaglar rather than lantus. -No evidence of acute infection. -stress test in AM. 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 -microcytosis - iron studies unremarkable 2. Hypokalemia/Hypomag/Hypophos - continue repletion. 3. Asthma - no respiratory symptoms, prn albuterol. continue singulair, pulmicort. 4. Hx HTN - stable. hold hctz with hyponatremia. continue cardizem. 5. Hypothyroidism - thyroid studies normal, continue synthroid 6. Hx Fatty liver - LFTs normal. 7. Hx Hiatal hernia - continue PPI 8. Hx diverticulitis - no abd pain. 9. Anx/depression - lexapro 10. HLD - statin. DVT ppx: lovenox DC planning: will need insulin, lancets, test strips, glucometer, This patient was seen by Chidi Bar PA-C under the supervision of Dr. Dill.
--- NOTE | 2018-09-26 16:58 | CHAPLAIN ---
patient was asleep
[2018-09-26 17:05] LABS: Bedside Glucose 284 mg/dL (70-110)
--- NOTE | 2018-09-26 20:15 | NURSING ---
This RN received phone call from daughter Elizabeth Napoles stating that her mother was in tears and anxious and did not want to do stress test tomorrow am. Elizabeth stated that she would be in tomorrow morning in hopes of speaking with dr regarding plan of care. This RN spoke with pt who became tearful and expressed feelings of anxiety and felt that she was going to have an asthma attack because the thought of having a stress test was causing her stress. This RN comforted her and informed her she had the right to refuse. This RN notified RT of need for intervention related to asthma and notified pt primary RN Heber that pt would like to refuse stress test in am until her and her daughter can speak with the physician.
[2018-09-26] MEDS: Albuterol 2.5 MG/3 ML VIAL.NEB. INHALATION (20:49)
[2018-09-26] MEDS: Atorvastatin Calcium 10 MG Tablet 5 MG PO (21:58)
[2018-09-26 22:40] LABS: Bedside Glucose 243 mg/dL (70-110)
[2018-09-26 23:22] LABS: Anion Gap 13 (5-15); BUN 14 mg/dL (7-18); BUN/Creat Ratio 17.3 RATIO (10-20); Calcium,Total 8.3 mg/dL (8.5-10.1); Chloride 110 mmol/L (98-107); Creatinine, Serum 0.81 mg/dL (0.55-1.02); EST Glomerular Filtration Rate 76 mL/min (>60); Est Glom Filt Rate - Afr Amer 92 mL/min (>60); Estimated Creatinine Clearance 53.64 ml/min; Glucose 303 mg/dL (74-106); Potassium 3.7 mmol/L (3.5-5.1); Sodium Level 144 mmol/L (136-145)
[2018-09-27] VITALS (10 sets, daily range): BP systolic 93–153; BP diastolic 51–82; PULSE 60–106; RESP 16–17; TEMP 36.5–36.9; O2SAT 92–97
[2018-09-27] MEDS: Montelukast 10 MG Tablet 5 MG PO ×2 (05:32→21:57)
[2018-09-27] MEDS: Aspirin 81 MG TAB.CHEW PO (05:32)
[2018-09-27] MEDS: Levothyroxine 50 MCG Tablet PO (05:33)
[2018-09-27] MEDS: Famotidine 20 MG Tablet PO ×2 (05:33→21:55)
--- NOTE | 2018-09-27 05:55 | EKG12_ITS ---
Test Reason : AM EKG Blood Pressure : / mmHG Vent. Rate : 068 BPM Atrial Rate : 068 BPM P-R Int : 138 ms QRS Dur : 076 ms QT Int : 414 ms P-R-T Axes : 053 061 038 degrees QTc Int : 440 ms Normal sinus rhythm Normal ECG When compared with ECG of 21-APR-2018 04:37, Vent. rate has decreased BY 34 BPM Confirmed by CRISTINA GAY, GENA ([id number]), film editor SWAPNA SKAGGS ([id number]) on 10/02/2018 7:05:13 AM Referred By: Amita Tsai Confirmed By:ANTONIO EVANS MD
[2018-09-27 06:02] LABS: Absolute Neutrophil Count 2.1 X10^3/uL (2.0-7.7); Basophil# 0.03 X10^3/uL; Basophil% 0.6 % (0-1); Eosinophil# 0.14 X10^3/uL; Eosinophils% 2.7 % (0-5); Hematocrit 37.2 % (37-47); Hemoglobin 12.1 g/dl (12.0-15.0); Lymphocyte % 46.6 % (19-41); Mean Corp Hgb Conc 32.5 g/gl (32-36); Mean Corpuscular Hgb 25.4 pg (27.0-32.0); Mean Corpuscular Volume 78.2 fL (81-99); Mean Platelet Vol. 13.1 fl (6.2-12.0); Monocyte% 9.7 % (0-10); Neutrophil # 2.07 X10^3/uL (2.7-7.7); Neutrophil % 40.2 % (47-70); Platelet Count 192 K/mm3 (150-450); RBC Distribution Width CV 16.4 % (11.6-14.6); RBC Distribution Width SD 45.5 fl (35.1-43.9); Red Blood Count 4.76 M/mm3 (4.2-5.4); White Blood Count 5.2 K/mm3 (4.4-11.0)
[2018-09-27 06:06] LABS: POSITIVE COUNT NO; POSITIVE DIFFERENTIAL NO; POSITIVE MORPHOLOGY NO
[2018-09-27 06:08] LABS: International Normalized Ratio 1.1; Partial Thromboplast Time 33.5 Seconds (24.1-36.2); Prothrombin Time (Protime)PT. 13.7 SECONDS (11.7-14.9)
[2018-09-27 06:33] LABS: Anion Gap 10 (5-15); BUN 11 mg/dL (7-18); BUN/Creat Ratio 16.2 RATIO (10-20); Calcium,Total 8.3 mg/dL (8.5-10.1); Chloride 113 mmol/L (98-107); Creatinine, Serum 0.68 mg/dL (0.55-1.02); EST Glomerular Filtration Rate 93 mL/min (>60); Est Glom Filt Rate - Afr Amer 112 mL/min (>60); Glucose 266 mg/dL (74-106); Magnesium 1.8 mg/dL (1.6-2.6); Phosphorus 3.1 mg/dL (2.5-4.9); Potassium 3.7 mmol/L (3.5-5.1); Sodium Level 145 mmol/L (136-145)
[2018-09-27 07:06] LABS: Bedside Glucose 256 mg/dL (70-110)
[2018-09-27] MEDS: Albuterol 2.5 MG/3 ML VIAL.NEB. INHALATION (09:42)
[2018-09-27 12:21] LABS: Bedside Glucose 241 mg/dL (70-110)
[2018-09-27] MEDS: Insulin Lispro 100 UNIT/ML INSULN.PEN SC ×3 (12:31→17:13)
[2018-09-27] MEDS: Magnesium Oxide 400 MG Tablet PO (12:34)
[2018-09-27] MEDS: Escitalopram Oxalate 10 MG Tablet PO (12:34)
[2018-09-27] MEDS: dilTIAZem CD 180 MG Capsule PO (12:34)
[2018-09-27] MEDS: Acetaminophen 325 MG Tablet 650 MG PO (12:38)
--- NOTE | 2018-09-27 12:45 | STRESSREP_ITS ---
Stress Test Report Date: September 27, 2018 Procedure: Pharmacologic stress nuclear imaging study Indications: Chest pain Consent: Per the patient Procedure: The patient underwent pharmacologic (Regadenoson) evaluation with a peak heart rate of 111 beats per minute (70 %predicted maximal heart rate) and a peak blood pressure of 140/82 mmHg. The baseline ECG demonstrated normal sinus rhythm, no significant ST-T changes. EKG during lexiscan infusion revealed significant change from baseline. EKG post infusion revealed no significant change from baseline [There were no cardiac dysrhythmias pretest, during pharmacologic infusion, or recovery]. [There was no complaint of chest discomfort during pharmacologic infusion or recovery]. The examination was discontinued secondary to completion of protocol. Impression: 1. Lexiscan stress test test is negative for Lexiscan infusion induced EKG changes of ischemia. 2. Lexiscan stress test test is negative for Lexiscan infusion induced chest pain. 3. Results of the nuclear portion of the test is as below Myocardial perfusion imaging study: Technique: The patient was injected with 14.3 millicuries of technetium 99m Cardiolite and subsequently rest SPECT Cardiolite nuclear imaging was obtained in the horizontal long, vertical long, and short axis views. The patient underwent ph armacologic (Regadenoson) evaluation. Please see above for details. The patient was injected with 44.1 millicuries of technetium 99m Cardiolite and subsequently stress SPECT Cardiolite nuclear imaging was obtained in the horizontal long, vertical long, and short axis views. A gated Cardiolite study at peak stress was obtained. Interpretation: Rest and stress SPECT Cardiolite nuclear imaging status post realignment, normalization, and attenuation correction demonstrate [overall normal myocardial radioisotope uptake]. Gated images reveal no significant regional wall motion abnormalities. The reported LVEF is greater than 70 %. Impression: 1. There is no evidence of significant ischemia or infarction. 2. Estimated ejection fraction is greater than 70%. This note was generated with [employer] software. It may contain incorrect words, spelling, and punctuation that were not noted in checking the note before signing.
[2018-09-27 16:50] LABS: Bedside Glucose 299 mg/dL (70-110)
[2018-09-27] MEDS: Insulin Lispro 100 UNIT/ML INSULN.PEN 10 UNIT SC (17:12)
--- NOTE | 2018-09-27 19:57 | PCM.PROGNOTE ---
Subjective: All Vital signs stable ND 6% saturated on room air Blood sugar record was reviewed and the patient's blood sugars are not yet adequately controlled. Stress test today negative for ischemia with a gated nuclear ejection fraction of 70%. Telemetry shows normal sinus rhythm with no significant ectopy. Much more alert and rested today. No complaints. She feels she is getting a better understanding of diabetes and how to manage blood sugars. Objective: GENERAL: alert, oriented X 3, Cooperative, NAD ORAL: moist mucosa, no mucosal lesions NECK: No JVD, supple, trachea midline LUNGS: CTA, symmetric chest expansion HEART: RRR, Normal S1 and S2, no rub, no gallop ABDOMEN: soft, NT, ND, BS present, no guarding with palpation EXTREMITIES: no edema, no cyanosis, no calf tenderness SKIN: No rashes, no breakdown NEUROLOGIC: no focal neurologic deficits PSYCH: appropriate, normal affect, pleasant - Physical Exam Vital Signs Temp Pulse Resp BP Pulse Ox 98.1 F 82 16 111/62 92 09/27/18 15:00 09/27/18 15:14 09/27/18 15:00 09/27/18 15:00 09/27/18 15:00 Oxygen Delivery Method Room Air Weight: 209 lb 7.026 oz Body Mass Index (BMI) 38.9 Finger Stick Blood Glucose 323 Intake and Output for Last 24 Hours 09/25/18 09/26/18 09/27/18 23:59 23:59 23:59 Intake Total 553 / 553 3454.9 / 3454.9 240 / 240 Output Total 600 / 600 1070 / 1070 Balance -47 / -47 2384.9 / 2384.9 240 / 240 Laboratory Tests Past 24 Hrs 09/26/18 09/27/18 09/27/18 22:55 05:38 05:38 WBC 5.2 RBC 4.76 Hgb 12.1 Hct 37.2 MCV 78.2 L MCH 25.4 L MCHC 32.5 RDW 16.4 H RDW Differential 45.5 H Plt Count 192 MPV 13.1 H Immature Gran % (Auto) 0.200 Neut % (Auto) 40.2 L Lymph % (Auto) 46.6 H [place] % (Auto) 9.7 Eos % (Auto) 2.7 Baso % (Auto) 0.6 Absolute Neuts (auto) 2.1 Absolute Lymphs (auto) 2.40 Total Counted Not Reportable PT INR APTT Sodium 144 145 Potassium 3.7 3.7 Chloride 110 H 113 H Carbon Dioxide 21.0 22.0 Anion Gap 13 10 BUN 14 11 Creatinine 0.81 0.68 Estim Creat Clear Calc 53.64 63.90 Est GFR (MDRD) Af Amer 92 112 Est GFR (MDRD) Non-Af 76 93 BUN/Creatinine Ratio 17.3 16.2 Glucose 303 H 266 H Calcium 8.3 L 8.3 L Phosphorus 3.1 Magnesium 1.8 09/27/18 05:38 WBC RBC Hgb Hct MCV MCH MCHC RDW RDW Differential Plt Count MPV Immature Gran % (Auto) Neut % (Auto) Lymph % (Auto) [place] % (Auto) Eos % (Auto) Baso % (Auto) Absolute Neuts (auto) Absolute Lymphs (auto) Total Counted PT 13.7 INR 1.1 APTT 33.5 Sodium Potassium Chloride Carbon Dioxide Anion Gap BUN Creatinine Estim Creat Clear Calc Est GFR (MDRD) Af Amer Est GFR (MDRD) Non-Af BUN/Creatinine Ratio Glucose Calcium Phosphorus Magnesium POC Glucose 09/27/18 09/27/18 09/27/18 16:43 12:18 06:59 POC Glucose 299 H 241 H 256 H 09/26/18 22:06 POC Glucose 243 H Medical Necessity - Tobacco Use Smoking Status: Never smoker Tobacco Use: Non-smoker Assessment/Plan All Active Problems Dehydration (Acute) Iron deficiency anemia (Acute) Hypophosphatemia (Acute) Hypomagnesemia (Acute) Diabetes mellitus type 1 (Acute) Diabetic ketoacidosis (Acute) Hypokalemia (Acute) Impressions 1. DKA 2. Diabetes mellitus type 1 is likely-no sign of intercurrent infection 3. Morbid obesity 4. Hypokalemia/hypomagnesemia/hypophosphatemia 5. History of asthma 6. Hypertension 7. Hypothyroidism 8. Hepatic steatosis 9. History of hiatal hernia 10. Diverticulosis 11. Anxiety/depression 12. Hyperlipidemia being treated as a type I diabetic due to weight loss, and DKA with no source of infection or recent severe stress. Adjust the insulin regimen and continue with diabetic teaching. she is interested in following up in the diabetic clinic with the dieticians We went over the sx of hypoglycemia with her and what to do if she has hypoglycemia Code Visit Inpatient E&M: 50676 Subs Hosp L2
[2018-09-27] MEDS: Atorvastatin Calcium 10 MG Tablet 5 MG PO (21:55)
[2018-09-27 22:16] LABS: Bedside Glucose 196 mg/dL (70-110)
[2018-09-28 02:00] VITALS: BP 103/42; PULSE 73; RESP 12; TEMP 36.6; O2SAT 91
[2018-09-28 03:00] VITALS: PULSE 61
[2018-09-28] MEDS: Levothyroxine 50 MCG Tablet PO (06:39)
[2018-09-28 06:50] LABS: Bedside Glucose 226 mg/dL (70-110)
[2018-09-28 07:13] VITALS: PULSE 71
[2018-09-28] MEDS: Montelukast 10 MG Tablet 5 MG PO (07:56)
[2018-09-28] MEDS: Escitalopram Oxalate 10 MG Tablet PO (07:56)
[2018-09-28] MEDS: Famotidine 20 MG Tablet PO (07:57)
[2018-09-28] MEDS: Magnesium Oxide 400 MG Tablet PO (07:57)
[2018-09-28] MEDS: dilTIAZem CD 180 MG Capsule PO (07:57)
[2018-09-28] MEDS: Aspirin 81 MG TAB.CHEW PO (07:57)
[2018-09-28] MEDS: Insulin Lispro 100 UNIT/ML INSULN.PEN SC ×3 (07:58→17:22)
[2018-09-28] MEDS: Insulin Lispro 100 UNIT/ML INSULN.PEN 7 UNIT SC ×2 (07:58→12:56)
[2018-09-28 08:00] VITALS: BP 122/74; PULSE 68; RESP 16; TEMP 36.5; O2SAT 97
[2018-09-28] MEDS: Albuterol 2.5 MG/3 ML VIAL.NEB. INHALATION (10:44)
[2018-09-28 11:36] LABS: Bedside Glucose 165 mg/dL (70-110)
[2018-09-28] MEDS: Ferrous Sulfate 325 MG Tablet PO (13:10)
[2018-09-28 14:00] VITALS: BP 118/70; PULSE 77; RESP 16; TEMP 36.6; O2SAT 97
--- NOTE | 2018-09-28 15:44 | CHAPLAIN ---
Type of Pastoral Visit _x__ Initial Visit ___ Follow-up Visit ___ On-call Visit ___ General Patient Visit ___ Spiritual Assessment ___ Family Conference ___ Bereavement ___ Rapid Response ___ Code Blue ___ Other (describe below) Pastoral Care Referral From _x__ Patient ___ Family ___ Nurse ___ Physician ___ President [employer] ___ Software Quality Analyst ___ Other (describe below) Sacrament/Intervention _x__ Active listening ___ Anointing ___ Religious ___ Bereavement ___ Communion ___ Alison exploration ___ _x__ Life review _x__ Prayer ___ Reconciliation ___ Sacrament of Sick ___ Supportive presence ___ Wedding ___ Other (describe below) Pastoral Comments
--- NOTE | 2018-09-28 16:29 | PCM.DC ---
- Discharge Diagnoses Current Active Problems: Current Active and Chronic Problems Diabetic ketoacidosis (Acute) Diabetes mellitus, new onset (Acute) Hypokalemia (Acute) You will use the following diet at home:: Calorie/Carbohydrate Controlled (specify 1200, 1400, etc) - 1800 calories, Cardiac Your food should be the consistency of: Regular Your liquids should be the consistency of: Regular/Thin Discharge Activity: Return to Normal Activity, - - Regular exercise helps to decrease and control blood sugars. Start a walking program and work up to walking 30 minutes daily May resume sexual activity in: No Restrictions Call your doctor if you observe: Fever of 101 or Higher, Shortness of breath, Dizziness, Fainting spells, Swelling in the ankles, Chest pain, - - nausea/vomiting/shortness of breath Instructions: Hypoglycemia (Low Blood Sugar) Additional Instructions: 1. If the blood sugar is > 250 take 2 extra units insulin. If the blood sugar is > 300 take 4 extra units insulin. If the blood sugar is > 350 take 6 extra units of insulin and. if the blood sugar is > 400 take 8 units of extra insulin and recheck in 2 hours. 2. Your cholesterol is not adequately controlled with 10 units of Simvastatin. I have increased the dose of the simvastatin to 20 mg at bedtime. He will need to have a lipid panel and a liver profile drawn in [address] Velazquez can order this. 3. You are iron deficient and I have started you on an iron supplement. Generally iron deficiency is due to chronic blood loss. You should discuss this with Dr. Velazquez and you will need a work up to figure out where the blood loss is coming from. 4. for the next week I want you to check your blood sugar before every meal and at bedtime and keep a record. Bring the blood sugar record with you to see Dr. Velazquez in 1 week. 5. I am sending a copy of the discharge summary to Dr. Velazquez so she will know what went on in the hospital. 6. It was a pleasure to meet you and take care of yourself. Pending Tests on Discharge: Islet cell antibodies, Glutamic acid decarboxylase antibodies(GAD65), insulinoma associated protein(IA-2) Allergies/Adverse Reactions: Allergies Penicillins [PCN] Allergy (Verified 09/25/18 16:03) Anaphylaxis Medications to take at Discharge Escitalopram Oxalate [Lexapro] 10 mg PO DAILY 04/21/18 Fluticasone/Salmeterol [Advair 500-50 Diskus] 1 puff IH BID 04/21/18 Levothyroxine Sodium [Synthroid] 50 mcg PO DAILY 04/21/18 Potassium Chloride [Klor-Con M20] 20 mcg PO DAILY 04/21/18 Cholecalciferol (Vitamin D3) [Vitamin D3] 2,000 unit PO DAILY 09/25/18 Diltiazem HCl [Diltiazem 24Hr ER (LA)] 180 mg PO DAILY 09/25/18 Montelukast Sodium [Singulair Chewable] 5 mg PO BID 09/25/18 Omeprazole 20 mg PO DAILY 09/25/18 Aspirin [Aspirin, Baby] 81 mg PO DAILY@0800 tab.chew 09/28/18 Ferrous Sulfate 325 mg PO DAILY@1200 #30 tab 09/28/18 Insulin Glargine,Hum.rec.anlog [Basaglar Kwikpen U-100] 15 unit SUBCUT QHS #2 insuln.pen 09/28/18 Insulin Lispro [Humalog Kwikpen] 0 unit SQ TIDCM #4 pen 09/28/18 Magnesium Oxide [Mag-Ox 400] 400 mg PO DAILYCM #30 tab 09/28/18 Simvastatin 20 mg PO QHS #30 tab 09/28/18 The following prescriptions were given: Insulin Glargine,Hum.rec.anlog [Basaglar Kwikpen U-100] 15 unit SUBCUT QHS #2 insuln.pen Transmission Status: Sent to [facility] Ferrous Sulfate 325 mg PO DAILY@1200 #30 tab Transmission Status: Sent to [facility] Insulin Lispro [Humalog Kwikpen] 0 unit SQ TIDCM #4 pen Transmission Status: Sent to [facility] Magnesium Oxide [Mag-Ox 400] 400 mg PO DAILYCM #30 tab Transmission Status: Sent to [facility] Simvastatin 20 mg PO QHS #30 tab Transmission Status: Sent to [facility] Orders to be completed after discharge: Glucometer Location: None Selected Primary Care Physician: Agnes Velazquez DO [Primary Care Provider] - Please follow up with your Primary Care Physician in: 1 week Test Results: Test results from this visit will be discussed in further detail at your follow-up appointment, if applicable. Proposed Discharge Date: 09/28/18
--- NOTE | 2018-09-28 16:47 | PCM.DC.SUM ---
Discharge Date and Diagnosis Date of Admission: 09/25/18 Date of Discharge: 09/28/18 - Primary Discharge Diagnosis Active and Suspected Problems Diabetic ketoacidosis Diabetes mellitus type 1 Dehydration (Acute) Iron deficiency (Acute) Hypophosphatemia (Acute) Hypomagnesemia (Acute) Hypokalemia (Acute) Chest pain - Secondary Discharge Diagnosis Chronic Problems Iron deficiency (Chronic) - etiology unknown Hypothyroidism (Chronic) Nonalcoholic hepatosteatosis (Chronic) Hyperlipidemia (Chronic) - not adequately controlled. LDL is 102 Anxiety and depression (Chronic) Diverticulosis (Chronic) Hiatal hernia (Chronic) Hypertension (Chronic) Asthma (Chronic) Morbid obesity (Chronic) Hospital Course and Treatment Imaging Results: Clinical Impression(s) from Imaging Studies Chest X-Ray 09/26/18 08:04 IMPRESSION: Large anal hernia. Small left pleural effusion with left basilar atelectasis. Electronically Signed: Jose Miguel Johan, at 13:23 EDT , Service support , Laboratory Results - last 24 hr 09/27/18 09/27/18 09/28/18 16:43 21:52 06:38 POC Glucose 299 H 196 H 226 H 09/28/18 11:29 POC Glucose 165 H none Operations: None Procedures: Stress test - Impression: 1. There is no evidence of significant ischemia or infarction. 2. Estimated ejection fraction is greater than 70%. Summary of Care Provided: The patient is a 62-year-old female with a past medical history of asthma, pre-diabetes mellitus type 2, hypertension, hyperlipidemia, hypothyroidism, anxiety/depression, GERD and morbid obesity who presented to the [facility] emergency department on 09/25/2018 complaining of 1 to 2 weeks of increasing fatigue, lethargy, polydipsia and polyuria. She had a 20 pound weight loss over the preceding 2 to 3 weeks. On the day of admission she had a syncopal event while having a blood draw at her primary care physician's office. Vital signs at presentation to the emergency department were temperature 98.3, pulse rate 77, blood pressure 131/93, respiratory rate 18 and she was 94% saturated on room air. White blood cell count was within normal limits and the differential was unremarkable. Hemoglobin and platelets were within normal limits. Potassium is markedly decreased at 2.4 and the serum bicarb was 18. The anion gap was increased at 19 and the random blood sugar was 341. Hemoglobin A1c was 12.5. Calcium corrected for hypoalbuminemia was within normal limits. Phosphorus and magnesium were normal. LFTs were unremarkable. Troponin was less than 0.015. UA showed 5-10 white blood cells per high-power field with +1 urate crystals and no bacteria. urine culture was not sent. Acetone was moderate. No CXR was done. She was admitted to the ICU and the DKA protocol was initiated. While in the ICU she c/o chest pain. EKG was normal. DKA resolved within the first 24 hours of admission and she was transitioned to Lantus at at bedtime with mealtime lispro. She was transferred to the progressive care unit. Diabetic education was ongoing throughout the course of her hospital stay. She was seen by the dietitian and is interested in following up in the diabetic clinic run by the dietitians. When she was stable a stress test was ordered due to the complaint of chest pain at admission. The stress test was negative for ischemia and she had preserved ejection fraction. She had no further complaints of chest pain after the initial complaint at admission. Telemetry showed normal sinus rhythm with no significant ectopy. A lipid panel was checked and showed triglycerides of 103, LDL of 33 and an HDL of 48. TSH and T4 were within normal limits. CBC revealed microcytosis with a normal hemoglobin but an increased RDW. Iron studies were obtained and showed a ferritin of 9. She was started on an iron supplement at discharge. Electrolytes were supplemented per protocol. On the date of discharge her highest blood sugar was 257 and adjustments were made to the insulin regimen. She was discharged home on Basaglar 15 units Q HS and novolog with meals. She will keep a blood sugar record and take the record with her to her next leo with Dr. Velazquez in 1 week. I did discuss with her that she had low iron stores and that she should discuss work up for occult blood loss with Dr. Velazquez. She will start a stool softener if she experiences constipation with the iron supplement. PHYSICAL EXAM: GENERAL: alert, oriented X 3, Cooperative, NAD ORAL: moist mucosa, no mucosal lesions NECK: No JVD, supple, trachea midline LUNGS: CTA, symmetric chest expansion HEART: RRR, Normal S1 and S2, no rub, no gallop ABDOMEN: soft, NT, ND, BS present, no guarding with palpation EXTREMITIES: no edema, no cyanosis, no calf tenderness SKIN: No rashes, no breakdown NEUROLOGIC: no focal neurologic deficits PSYCH: appropriate, normal affect, pleasant This note was generated with CamioCam dictation software. It may contain incorrect words, spelling, and punctuation that were not noted in checking the note before signing. - Physical Exam Vital Signs Temp Pulse Resp BP Pulse Ox 98 F 77 16 118/70 97 09/28/18 14:00 09/28/18 14:00 09/28/18 14:00 09/28/18 14:00 09/28/18 14:00 Oxygen Delivery Method Room Air Weight: 210 lb 12.191 oz Body Mass Index (BMI) 38.9 Finger Stick Blood Glucose 323 Intake and Output for Last 24 Hours 09/26/18 09/27/18 09/28/18 23:59 23:59 23:59 Intake Total 3454.9 / 3454.9 240 / 360 720 / 720 Output Total 1070 / 1070 Balance 2384.9 / 2384.9 240 / 360 720 / 720 POC Glucose 09/28/18 09/28/18 09/27/18 11:29 06:38 21:52 POC Glucose 165 H 226 H 196 H 09/27/18 16:43 POC Glucose 299 H Discharge Activity: Return to Normal Activity, - - Regular exercise helps to decrease and control blood sugars. Start a walking program and work up to walking 30 minutes daily May resume sexual activity in: No Restrictions Call your doctor if you observe: Fever of 101 or Higher, Shortness of breath, Dizziness, Fainting spells, Swelling in the ankles, Chest pain, - - nausea/vomiting/shortness of breath Home Medications: Medications to take at Discharge Escitalopram Oxalate [Lexapro] 10 mg PO DAILY 04/21/18 Fluticasone/Salmeterol [Advair 500-50 Diskus] 1 puff IH BID 04/21/18 Levothyroxine Sodium [Synthroid] 50 mcg PO DAILY 04/21/18 Potassium Chloride [Klor-Con M20] 20 mcg PO DAILY 04/21/18 Cholecalciferol (Vitamin D3) [Vitamin D3] 2,000 unit PO DAILY 09/25/18 Diltiazem HCl [Diltiazem 24Hr ER (LA)] 180 mg PO DAILY 09/25/18 Montelukast Sodium [Singulair Chewable] 5 mg PO BID 09/25/18 Omeprazole 20 mg PO DAILY 09/25/18 Aspirin [Aspirin, Baby] 81 mg PO DAILY@0800 tab.chew 09/28/18 Ferrous Sulfate 325 mg PO DAILY@1200 #30 tab 09/28/18 Insulin Glargine,Hum.rec.anlog [Basaglar Kwikpen U-100] 15 unit SUBCUT QHS #2 insuln.pen 09/28/18 Insulin Lispro [Humalog Kwikpen] 0 unit SQ TIDCM #4 pen 09/28/18 Magnesium Oxide [Mag-Ox 400] 400 mg PO DAILYCM #30 tab 09/28/18 Simvastatin 20 mg PO QHS #30 tab 09/28/18 Following Prescrptions Were Given to Patient: Insulin Glargine,Hum.rec.anlog [Basaglar Kwikpen U-100] 15 unit SUBCUT QHS #2 insuln.pen Prescription Printed Ferrous Sulfate 325 mg PO DAILY@1200 #30 tab Prescription Printed Insulin Lispro [Humalog Kwikpen] 0 unit SQ TIDCM #4 pen Prescription Printed Magnesium Oxide [Mag-Ox 400] 400 mg PO DAILYCM #30 tab Prescription Printed Simvastatin 20 mg PO QHS #30 tab Prescription Printed Other Amb Orders: Glucometer Location: None Selected Primary Care Physician: Agnes Velazquez DO [Primary Care Provider] - Please follow up with your Primary Care Physician in: 1 week Patient Instructions: Hypoglycemia (Low Blood Sugar) Disposition: Home Minutes spent on discharge:: 40 Patient Condition:: Good Medical Necessity - Tobacco Use Smoking Status: Never smoker Tobacco Use: Non-smoker Meaningful Use Info Meaningful Use Diagnoses (Choose all that apply): None applicable Code Visit Inpatient E&M: 60392 Disch Hosp
--- NOTE | 2018-09-28 17:17 | PCM.WORK.EX ---
Work/School Excuse Work/School Excuse for:: Patient From: 09/25/18 - in the hospital for diabetic ketoacidosis through: 10/07/18
[2018-09-28] MEDS: Insulin Lispro 100 UNIT/ML INSULN.PEN 10 UNIT SC (17:21)
[2018-09-28 17:40] LABS: Bedside Glucose 257 mg/dL (70-110)
--- NOTE | 2018-10-01 13:17 | CASEMGMT ---
BERNARD HITCHCOCK DC PHONE CALL DC DATE: 09/28/18 DC Disposition: Home LACE/STRATA: 12 Attempted call to listed phone #. No answer.
== END 2018-09-28 18:40 | disposition home or self-care (01) | DRG 638 ==
LOC: ED 18:33 → ICU 18:56 → PCU 09-27 10:46 → ICU 09-27 14:18 → PCU 09-27 14:18
PROVIDERS: Hospitalist; Physician Assistant; Admitting Provider Family Medicine; Emergency Provider Emergency Medicine; Family Provider Internal Medicine; PCP Internal Medicine; Referring Provider Family Medicine; Visit Provider Internal Medicine
DX: E10.10 Type 1 diabetes mellitus with ketoacidosis without coma (principal); E87.1 Hypo-osmolality and hyponatremia; E87.6 Hypokalemia; E78.5 Hyperlipidemia, unspecified; I10 Essential (primary) hypertension; E03.9 Hypothyroidism, unspecified; J45.909 Unspecified asthma, uncomplicated; E66.01 Morbid (severe) obesity due to excess calories; Z68.38 Body mass index [BMI] 38.0-38.9, adult; K76.0 Fatty (change of) liver, not elsewhere classified; K44.9 Diaphragmatic hernia without obstruction or gangrene; E83.39 Other disorders of phosphorus metabolism; E86.0 Dehydration; K57.90 Diverticulosis of intestine, part unspecified, without perforation or abscess without bleeding; F32.9 Major depressive disorder, single episode, unspecified; F41.9 Anxiety disorder, unspecified; R07.9 Chest pain, unspecified; K21.9 Gastro-esophageal reflux disease without esophagitis; Z79.4 Long term (current) use of insulin
CPT/HCPCS: 36415; 71045; 78452; 80048; 80053; 80061; 81001; 82009; 82040; 82728; 82962; 83036; 83540; 83550; 83690; 83735; 84100; 84439; 84443; 84484; 85025; 85610; 85730; 93005; 93017; 94640; 97802; 99285; A9500; J7030; J7040; A4216; J2785; J7799

== ENCOUNTER 2018-11-07 09:30 | Outpatient (RCR) | payer OTHER, SELFPAY ==
[2018-10-04 16:45] VITALS: BMI 38.7
== END 2018-11-07 23:59 ==
LOC: DC 09:30
PROVIDERS: Family Provider Internal Medicine; PCP Internal Medicine; Visit Provider Internal Medicine
DX: E11.65 Type 2 diabetes mellitus with hyperglycemia (principal); Z71.3 Dietary counseling and surveillance
CPT/HCPCS: 97802; G0108

== ENCOUNTER 2018-11-29 15:00 | Outpatient (RCR) | payer OTHER, SELFPAY ==
[2018-10-04 16:45] VITALS: BMI 38.7
== END 2018-12-08 23:59 ==
LOC: DC 15:00
PROVIDERS: Family Provider Internal Medicine; PCP Internal Medicine; Visit Provider Internal Medicine
DX: E11.65 Type 2 diabetes mellitus with hyperglycemia (principal); Z71.3 Dietary counseling and surveillance
CPT/HCPCS: 97803; G0108

== ENCOUNTER 2018-12-19 15:53 | Outpatient (RCR) | payer OTHER, SELFPAY ==
[2018-10-04 16:45] VITALS: BMI 38.7
== END 2018-12-19 23:59 | disposition home or self-care (01) ==
LOC: DC 15:53
PROVIDERS: Family Provider Internal Medicine; PCP Internal Medicine; Visit Provider Internal Medicine
DX: Z71.3 Dietary counseling and surveillance (principal); E11.65 Type 2 diabetes mellitus with hyperglycemia
CPT/HCPCS: 97803

== ENCOUNTER → 2021-03-09 14:02 | Outpatient (CLI) | payer OTHER, SELFPAY ==
--- NOTE | 2021-03-09 14:05 | CT_ITS ---
INDICATION: ABD PAIN / FEVER EXAMINATION: CT Abdomen And Pelvis W/ Contrast Injection TECHNIQUE: Helically acquired images were obtained of the abdomen and pelvis after IV contrast. A radiation dose optimization technique was used for this scan. IV Contrast dosage and agent: Oral and amp; IV Gastrografin and amp; 100mL Isovue-300 Oral contrast: None. COMPARISON: 12/13/2017. FINDINGS: Visualized lung bases: Bibasilar atelectasis. Liver: Unremarkable Gallbladder: Unremarkable Spleen: Unremarkable Pancreas: Unremarkable Adrenal Glands: Unremarkable Kidneys: Unremarkable Vasculature: Unremarkable GI Tract: Scattered diverticula throughout the colon without evidence of inflammation. Large hiatal hernia. Lymphadenopathy: None Peritoneum: No ascites. Bladder: Unremarkable Reproductive organs: Unremarkable Bones/Soft tissues: Mild scattered degenerative changes of the visualized spine. Grade 1 anterolisthesis L4 on L5. CT/Abdomen/Pelvis WITH Contrast IMPRESSION: No acute abnormalities in the abdomen or pelvis. Hiatal hernia. Electronically Signed: Td Hugo MD at 16:58 EST Tel , Service support ,
== END ==
PROVIDERS: PCP Internal Medicine; Referring Provider Nurse Practitioner; Visit Provider Nurse Practitioner
DX: D64.9 Anemia, unspecified (principal)
CPT/HCPCS: 74177; Q9967

== ENCOUNTER → 2021-03-15 10:42 | Outpatient (CLI) | payer OTHER, SELFPAY ==
[2021-03-09 11:51] LABS: Hematocrit 33.3 % (37-47); Mean Corpuscular Hgb 22.6 pg (27.0-32.0); Mean Corpuscular Volume 75.2 fL (81-99); Mean Platelet Vol. 10.7 fl (6.2-12.0); Platelet Count 435 K/mm3 (150-450); RBC Distribution Width CV 17.4 % (11.6-14.6); RBC Distribution Width SD 46.6 fl (35.1-43.9); Red Blood Count 4.43 M/mm3 (4.2-5.4); White Blood Count 8.9 K/mm3 (4.4-11.0)
[2021-03-09 12:09] LABS: Albumin, Serum 3.3 g/dL (3.2-5.0); Amylase 29 U/L (25-115); BUN 19 mg/dL (7-18); BUN/Creat Ratio 21.9 RATIO (10-20); Calcium,Total 9.5 mg/dL (8.5-10.1); Chloride 105 mmol/L (98-107); Creatinine, Serum 0.87 mg/dL (0.55-1.02); EST Glomerular Filtration Rate 69 mL/min (>60); Est Glom Filt Rate - Afr Amer 84 mL/min (>60); Glucose 117 mg/dL (74-106); Lipase 36 U/L (73-393); Phosphorus 3.5 mg/dL (2.5-4.9); Sodium Level 141 mmol/L (136-145)
[2021-03-09 17:17] LABS: Ferritin 3 ng/mL (8-252); Iron 25 ug/dL (50-170); Iron Binding Capacity,Total 532 ug/dL (250-450)
--- NOTE | 2021-03-15 10:45 | BI_ITS ---
MAMMOGRAPHY - BILATERAL SCREENING REASON FOR EXAM: Female, 65 years old. Routine annual screening examination. PERTINENT HISTORY: Non-contributory. Remote right excisional breast biopsy. TECHNIQUE: Digital bilateral breast randal (3D mammographic acquisition) in the CC and MLO projections. 2-D mediolateral oblique (MLO) and craniocaudad (CC) views of both breasts were obtained. CAD: Full Field Digital Mammography with Computer Added Detection was performed. COMPARISON: Comparison is made with prior study dated 05/27/2016 and 05/14/2015. FINDINGS: Breast Composition: The breasts are almost entirely fatty. There are no dominant masses or suspicious calcifications. Stable focal architectural distortion in the upper outer aspect of the right breast. A tissue clip marker is seen within that site. Stable benign appearing bilateral axillary lymph nodes. No other significant abnormalities are identified. There has been no significant change since the prior study. BI/SCRN MAMM (CAD)W/RANDAL BILAT IMPRESSION: Stable bilateral screening mammogram. Yearly follow-up mammogram recommended. (A) ASSESSMENT CATEGORY: BIRADS Category 2: Benign. A letter regarding these results will be sent to the patient by the facility within 30 days. Approximately 10% of breast cancers are not detected by mammography. A normal mammogram should not delay biopsy of a clinically suspicious abnormality. [id number] Electronically Signed: Jose Miguel Prado MD at 12:33 EST , Service support ,
--- NOTE | 2021-03-15 14:24 | NEURO ---
NCS and/or EMG Patient Report Ordering Doctor: Agnes Velazquez DATE OF SERVICE: 03/15/21 Indication: Intermittent numbness involving the lateral aspects of both thighs (left greater than right). There is no associated weakness or radicular pain. Symptoms seem to be exacerbated during periods of weight gain. History of type 1 diabetes. Findings: Nerve conduction studies were performed in the right and left lower extremities. The right peroneal motor study recording the extensor digitorum brevis showed a normal amplitude, normal distal latency and normal conduction velocity. No conduction block or focal slowing was present across the fibular neck. The right tibial motor study recording the abductor hallucis brevis showed a slightly reduced amplitude, normal distal latency and normal conduction velocity. Right sural sensory response showed a normal amplitude and conduction velocity. Right superficial peroneal sensory response showed a normal amplitude and conduction velocity. The left peroneal motor study recording the extensor digitorum brevis showed a normal amplitude, normal distal latency and normal conduction velocity. No conduction block or focal slowing was present across the fibular neck. The left tibial motor study recording the abductor hallucis brevis showed a normal amplitude, normal distal latency and normal conduction velocity. Left sural sensory response showed a normal amplitude and conduction velocity. Left superficial peroneal sensory response showed a normal amplitude and conduction velocity. The lateral femoral cutaneous sensory responses were not obtained due to their common absence in normal individuals and the fact that the patient has bilateral symptoms (no possibility for an internal control). Needle EMG of the left lower extremity muscles was performed. The lumbar paraspinal muscles were not sampled due to the patient's history of diabetes. No denervation was present in any sampled muscle. Motor units in the tibialis anterior were to distant to evaluate. The quadriceps (vastus medialis, rectus femoris and vastus lateralis) revealed normal motor unit morphology, activation and recruitment patterns. Needle EMG of the right lower extremity was omitted due to the absence of findings in the more symptomatic limb. Impression: This is a normal, but limited study. There is no electrophysiologic evidence of peripheral neuropathy of either the right or left lower extremity. There is no electrophysiologic evidence of a L3/L4 radiculopathy in the left lower extremity. Please note: diagnosis of lateral femoral cutaneous neuropathy (i.e. meralgia peresthetica) is based on a suggestive patient presentation and the exclusion of the lumbar plexus/root pathology on electrodiagnostic testing. Clinical correlation is advised. Td Prince D.O. Multi Select Codes Neurology Neurology Interp Codes: 85708-47 [facility] tst done w/nerv tst taylor (interp) and 68668-25 Nr cndj test 7-8 studies (interp)
== END ==
PROVIDERS: PCP Internal Medicine; Visit Provider Internal Medicine
DX: Z12.31 Encounter for screening mammogram for malignant neoplasm of breast (principal); R20.2 Paresthesia of skin; R10.32 Left lower quadrant pain
CPT/HCPCS: 77063; 77067; 80069; 82150; 82728; 83540; 83550; 83690; 85027; 95885; 95910

== ENCOUNTER 2021-04-21 06:46 | Day surgery (SDC) | payer OTHER, SELFPAY ==
--- NOTE | 2021-04-21 07:23 | HP.PCM_ITS ---
HPI - General HPI Narrative CHIVO CORREA, is a 65 F who presents for EGD and colonoscopy due to history of dysphagia with nausea and vomiting. Patient states she has changed since her office appointment to a gluten-free diet and she has not had any issues with reflux or the nausea and vomiting. Patient is not on omeprazole or Pepcid. Patient still has bowel movements daily denies any blood. Office visit from January 2021: today for colonoscopy. Patient states her last colonoscopy was about 5 years ago and she had a couple of colon polyps at that time. Patient states she does have occasional reflux only about once a week takes omeprazole as needed. Patient denies a family history of colon cancer has bowel movements daily denies any blood. Patient states she does have a hiatal hernia and can have issues with dysphagia a couple times a year where she needs to throw up in order to feel better question whether this catches in her lower esophagus. Patient is only on a baby aspirin for preventative. [facility] Medical History (Updated 04/16/21 @ 10:00 by Nani Warren) Anemia Anxiety Anxiety and depression Arthritis Asthma Asthma Back pain Blackout Cardiology follow-up encounter Chest pain Dehydration Diabetes mellitus type 1 Dietary restriction Easy bruising Fatty liver Heartburn Hiatal hernia High cholesterol History of benign breast biopsy History of edema History of hiatal hernia Hyperlipidemia Hypertension Hypertension Hypomagnesemia Hypothyroidism Insulin dependent diabetes mellitus Iron deficiency Leg cramps Migraine headache Non-smoker Restless legs Shortness of breath on exertion Syncope Thyroid disease Wears glasses Home Medications fluticasone propion-salmeterol [Advair Diskus] 1 puff IH BID 04/21/18 [History Last Taken 09/25/18] levothyroxine [Synthroid] 50 mcg PO DAILY 04/21/18 [History Last Taken 09/25/18] potassium chloride [Klor-Con M20] 20 mcg PO DAILY 04/21/18 [History Last Taken 09/24/18] cholecalciferol (vitamin D3) 2,000 unit PO DAILY 09/25/18 [History Last Taken 09/25/18] montelukast 5 mg PO BID 09/25/18 [History Last Taken 09/23/18] aspirin 81 mg PO DAILY@0800 tab.chew 09/28/18 [Rx Last Taken Unknown] insulin glargine 15 unit SUBCUT QHS #2 insuln.pen 09/28/18 [Rx Last Taken Unknown] insulin lispro 0 unit SQ TIDCM #4 pen 09/28/18 [Rx Last Taken Unknown] simvastatin 20 mg PO QHS #30 tab 09/28/18 [Rx Last Taken Unknown] Saccharomyces boulardii 250 mg capsule 250 mg PO BID 01/25/21 [History Last Taken Unknown] albuterol sulfate 90 mcg/actuation aerosol inhaler 1 inh INHALATION PRN PRN 01/25/21 [History Last Taken Unknown] amlodipine 5 mg tablet 5 mg PO DAILY 01/25/21 [History Last Taken Unknown] chlorthalidone 25 mg tablet 25 mg PO DAILY 01/25/21 [History Last Taken Unknown] losartan 100 mg tablet 100 mg PO QHS 01/25/21 [History Last Taken Unknown] triamcinolone acetonide 55 mcg nasal spray aerosol 1 spray INTRANASAL DAILY 01/25/21 [History Last Taken Unknown] ferrous fumarate 325 mg PO DAILY 04/16/21 [History Last Taken Unknown] Allergy/AdvReac Type Severity Reaction Status Date / Time Penicillins [PCN] Allergy Anaphylaxis Verified 04/16/21 09:43 Family History Mother CAD (coronary artery disease) Hypertension Father Diabetes Heart disease Sister CVA (cerebral vascular accident) Diabetes Brother Diabetes Surgical History (Updated 04/16/21 @ 10:00 by Nani Warren) H/O section History of cardiac catheterization Hx of colonoscopy S/P tonsillectomy and adenoidectomy S/P tubal ligation Social History Smoking Status: Never smoker alcohol intake: never Past Medical/Surgical History Planned Operation Planned Operative Procedure/s: EGD/CSCOPE Previous Hospitalizations/Surgeries HX Hospitalizations: No Any Problems With Anesthesia: No You/Your Family Experience Fever (Hyperthermia) With Anes: No Cholinesterase deficiency: No Cardiovascular Hx Chest Pain within Last 2 months: No Hx of Irregular Heartbeat and/or Afib: No Hx Heart Attack: No Hx Hypertension: Yes (CONTROLLED WITH MEDS) Hx Cardiac Surgery/Stents/Etc.: No Hx Pain in Legs when Walking/Leg Cramps: No Respiratory Hx Chronic Obstructive Pulmonary Disease (COPD): No Hx Asthma: Yes Hx Emphysema: No Hx Sleep Apnea: No Hx Respiratory Tract Infection/Cold (presently): No Do You Snore Loudly (louder than talking or can be heard): No Do You Often Feel Tired/ Fatigued/ Sleepy Dring Daytime?: Yes Has Anyone Observed You Stop Breathing During Sleep?: No Result (for STOP score): Positive Hx Smoking: No Smoking Status: Never smoker Gastrointestinal Hx Gastroesophageal Reflux: Yes Controlled With Meds: Yes Hx Gastrointestinal Bleed: No Hx Ulcer: No Difficulty Chewing/Swallowing: No Special diet followed at home: Yes (Diverticulosis) Hx Unplanned Weight Loss of 20#: Yes (20 POUNDS IN 2 WEEKS) Neurological Hx Seizures: No Hx Multiple Sclerosis: No Hx Parkinson's Disease: No Does patient have nerve stimulator: No Blood Disorder Hx Hepatitis: No Hx Cirrhosis: No Hx Anemia: No Hx Blood Disorders: No Reproduction : No Genitourinary Hx Renal Disease: No Hx Dialysis: No Musculoskeletal Hx Arthritis: Yes Hx Rheumatoid Arthritis: No Endocrine Hx Diabetes: No (New Diagnosis) Thyroid Disease: Yes Psycho/Social Hx Substance Use: No Hx Alcohol Use: No Hx Anxiety: Yes Hx Depression: Yes Hx Dementia: No Miscellaneous Hx Cancer: No Allergies Penicillins [PCN] Allergy (Verified 04/16/21 09:43) Anaphylaxis Maternal: Family History Mother CAD (coronary artery disease) Hypertension Father Diabetes Heart disease Sister CVA (cerebral vascular accident) Diabetes Brother Diabetes Hypertension Paternal: Family History Mother CAD (coronary artery disease) Hypertension Father Diabetes Heart disease Sister CVA (cerebral vascular accident) Diabetes Brother Diabetes Diabetes Sibling: Family History Mother CAD (coronary artery disease) Hypertension Father Diabetes Heart disease Sister CVA (cerebral vascular accident) Diabetes Brother Diabetes Diabetes Discharge Is Pt Admitted From a Intermediate, or a [facility]: No After D/C, Where Do you Plan to Go: Return Home From the PAT History Number of Risk Factors: 5 Physical Exam Const alert, oriented x3 and no apparent distress HEENT normocephalic and head/scalp atraumatic Resp normal respiratory effort Cardio regular rate GI soft to palpation and non-tender; Negative for non-distended Palpation: Negative for guarding Extremity no clubbing, cyanosis or edema Neuro CN's II-XII intact bilaterally Psych mental status grossly normal Assessment & Plan Assessment/Plan (1) Dysphagia: (2) Hx of colonic polyps: Procedure Criteria Type of Procedure Procedure Type: Elective Elective Risks - COVID COVID Risk Discussion: The surgeon/proceduralist and patient have discussed in detail the risk of exposure to and/or potential harm posed by the COVID-19 virus with having a surgery/procedure at this time versus the risk of delaying the surgery/procedure. It is not possible to know either the risk of delaying the surgery or procedure or chance of getting an infection with perfect accuracy, but a joint decision was made between the patient and the surgeon/proceduralist to proceed at this time with the scheduled surgery/procedure as indicated on the consent form. Surgery Risks - Colonoscopy Risks Include but are not Limited To: Risks include but are not limited to: Bleeding, perforation requiring further surgery, inability to complete colonoscopy requiring barium enema.
[2021-04-21 07:27] VITALS: BP 130/74; PULSE 92; RESP 16; TEMP 36.8; O2SAT 96; BMI 42.6
[2021-04-21 07:41] LABS: Bedside Glucose 188 mg/dL (70-110)
--- NOTE | 2021-04-21 08:00 | IMM_PTH ---
PATIENT: CHIVO CORREA LOC: EN U#:[id number] AGE/SX: 65/F ROOM: RE04/21/[address]: Dr. Evelyn Bean MD : 1955 BED: DIS: 04/21/2021 SPEC #: [id number] RECD: 04/21/21 14:27 STATUS: GRETA REQ #: [id number] DIONISIO: 04/21/21 08:[address]: Evelyn Bean DEPT: IMMUNOHISTOCHEMISTRY RECD BY: Yaneth Edwards ENTERED: 04/21/21 14:28 SP TYPE: IMMUNO OTHR DR: Dr. Agnes Velazquez, Tissues: B - Stomach, NOS Procedures: H Pylori (initial) PHYSICIAN & INSTITUTION [place] [id number] SPECIMEN INFORMATION: Tissue Source: B ? Antrum biopsy Clinical Info: Dysphagia, history colonic polyps Specimen Number: [id number] CPT code: 10332 METHODOLOGY: Deparaffinized sections of prefer/formalin-fixed tissue or PAP/DQ stained slides are incubated with monoclonal/polyclonal antibodies/oligonucleotide probes. Localization is made via biotin free immunoperoxidase method. Appropriate controls are performed and reacted as expected. Results on target cell population are indicated in the following table: RESULTS: ANTIBODY / CLONE RESULT Block B H Pylori (polyclonal) negative These tests were developed and their performance characteristics determined by [facility]. They may not have been cleared or approved by the U.S. Food and Drug Administration. The FDA has determined that such clearance or approval is not necessary. INTERPRETATION: B. Antrum biopsy: Negative for Helicobacter pylori organisms. SJ:celso 04/26/2021
--- NOTE | 2021-04-21 08:00 | EGD_PTH ---
PATIENT: CHIVO CORREA LOC: EN U#:[id number] AGE/SX: 65/F ROOM: RE04/21/[address]: Dr. Evelyn Bean MD : 1955 BED: DIS: 04/21/2021 SPEC #: [id number] RECD: 04/21/21 12:32 STATUS: GRETA SKIP #: [id number] DIONISIO: 04/21/21 08:[address]: Evelyn Bean DEPT: SURGICAL PATHOLOGY RECD BY: Nidia Quevedo ENTERED: 04/21/21 13:15 SP TYPE: EGD BIOPSY ONELIA DR: Dr. Agnes Velazquez, DO Tissues: A - Duodenum, NOS B - Gastric mucous membrane C - Gastric mucous membrane Procedures: Surgery Specimen Level IV HEADER OPERATION: Colonoscopy, EGD ([facility]) PRE-OP DIAGNOSIS: Dysphagia, history colonic polyps TISSUE SUBMITTED: A ? Duodenum biopsy for celiac, B ? Antrum biopsy for H. pylori and path, C ? Gastric polyp biopsy and snare MICROSCOPIC DIAGNOSIS A. Duodenum biopsy: A fragment of duodenal mucosa with congestion, mild Bhavna gland hyperplasia and lymphangiectasia. B. Antrum biopsy: Mild gastritis. See microscopic description and comment. C. Gastric polyp, biopsy: Consistent with fundic gland polyp. SJ:rg 04/23/2021 COMMENT B. The results of immunohistochemistry for Helicobacter pylori will be reported separately ([id number]). MICROSCOPIC DESCRIPTION Slides are reviewed. B. The specimen shows fragments of gastric mucosa with chronic inflammatory cell infiltrates in the lamina propria consisting of lymphocytes and plasma cells, consistent with mild chronic gastritis. GROSS DESCRIPTION A - Received in fixative is one container labeled with the patient's name and designated duodenum biopsy. The specimen consists of one irregular fragment of light glass soft tissue that measures 0.5 x 0.5 x 0.1 cm. The specimen is totally submitted in one cassette. B - Received in fixative is one container labeled with the patient's name and designated antrum biopsy. The specimen consists of one irregular fragment of light glass soft tissue that measures 0.8 x 0.2 x 0.1 cm. The specimen is totally submitted in one cassette. C - Received in fixative is one container labeled with the patient's name and designated gastric polyp biopsy. The specimen consists of multiple irregular fragments of light glass soft tissue that in aggregate measure 1 x 0.7 x 0.1 cm. The specimen is totally submitted in one cassette. / AM:celso 04/22/2021 TC:3 CPT: 72846 x3
[2021-04-21 08:45] VITALS: BP 130/74; BP 94/61; PULSE 83; RESP 16; TEMP 35.9; O2SAT 98
--- NOTE | 2021-04-21 08:49 | OP.COLON_ITS ---
Patient Name: Lady Aguilar Procedure Date: 04/21/2021 8:18 AM Date of : 1955 Age: 65 Procedure: Colonoscopy Indications: High risk colon cancer surveillance: Personal history of colonic polyps Providers: Evelyn Bean MD Medicines: Monitored Anesthesia Care Patient Profile: This is a 65 year old female. Last Colonoscopy: 5 years ago. Complications: No immediate complications. Procedure: Pre-Anesthesia Assessment: - Prior to the procedure, a History and Physical was performed, and patient medications and allergies were reviewed. The patient's tolerance of previous anesthesia was also reviewed. The risks and benefits of the procedure and the sedation options and risks were discussed with the patient. All questions were answered, and informed consent was obtained. Prior Anticoagulants: The patient has taken aspirin, last dose was 5 days prior to procedure. ASA Grade Assessment: Per anesthesia. After reviewing the risks and benefits, the patient was deemed in satisfactory condition to undergo the procedure. After I obtained informed consent, the scope was passed under direct vision. Throughout the procedure, the patient's blood pressure, pulse, and oxygen saturations were monitored continuously. The pediatric colonoscope was introduced through the anus and advanced to the cecum, identified by the appendiceal orifice, ileocecal valve and palpation. The colonoscopy was performed without difficulty. The patient tolerated the procedure well. The quality of the bowel preparation was good. Scope In: 8:19:57 AM Scope Withdrawal Time 0 hours 6 minutes 11 seconds Scope Out: 8:39:32 AM Total Procedure Duration Time 0 hours 19 minutes 35 seconds Findings: Hemorrhoids were found on perianal exam. Scattered small-mouthed diverticula were found in the sigmoid colon, descending colon, transverse colon and ascending colon. The exam was otherwise without abnormality on direct and retroflexion views. Impression: - Hemorrhoids found on perianal exam. - Diverticulosis in the sigmoid colon, in the descending colon, in the transverse colon and in the ascending colon. - The examination was otherwise normal on direct and retroflexion views. - No specimens collected. Recommendation: - Discharge patient to home. - Resume previous diet. - Continue present medications. - Repeat colonoscopy in 10 years for screening purposes. Procedure Code(s): --- Professional --- G0105, PT, Colorectal cancer screening; colonoscopy on individual at high risk Diagnosis Code(s): --- Professional --- Z86.010, Personal history of colonic polyps K64.9, Unspecified hemorrhoids K57.30, Diverticulosis of large intestine without perforation or abscess without bleeding CPT copyright 2017 [employer]. All rights reserved. The codes documented in this report are preliminary and upon nurse midwife/clinical instructor review may be revised to meet current compliance requirements. MD Evelyn Arroyo MD 04/21/2021 8:48:49 AM This report has been signed electronically. Number of Addenda: 0 Note Initiated On: 04/21/2021 8:18 AM
[2021-04-21 08:50] VITALS: BP 100/58; BP 130/74; PULSE 80; RESP 16; O2SAT 97
--- NOTE | 2021-04-21 08:50 | OP.CCLET_ITS ---
04/21/2021 Agnes Velazquez [address] [place] [address] Re : Colonoscopy procedure for Lady Aguilar Dear Dr. Velazquez This procedure was performed on Wednesday, April 21, 2021. My impressions and recommendations are as follows: Impressions : - Hemorrhoids found on perianal exam. - Diverticulosis in the sigmoid colon, in the descending colon, in the transverse colon and in the ascending colon. - The examination was otherwise normal on direct and retroflexion views. - No specimens collected. Recommendations : - Discharge patient to home. - Resume previous diet. - Continue present medications. - Repeat colonoscopy in 10 years for screening purposes. My findings are described in the full procedure note, which is enclosed. If I can be of further assistance, please feel free to contact me at Doctor phone number(s): , Work: . Sincerely, MD Evelyn Arroyo MD 04/21/2021 8:48:49 AM This report has been signed electronically.
[2021-04-21 08:55] VITALS: BP 101/61; BP 130/74; PULSE 74; RESP 16; O2SAT 98
--- NOTE | 2021-04-21 08:56 | OP.EGD_ITS ---
Patient Name: Lady Aguilar Procedure Date: 04/21/2021 7:43 AM Date of : 1955 Age: 65 Procedure: Upper GI endoscopy Indications: Dysphagia Providers: Evelyn Bean MD Medicines: Monitored Anesthesia Care Patient Profile: This is a 65 year old female. Complications: No immediate complications. Procedure: Pre-Anesthesia Assessment: - Prior to the procedure, a History and Physical was performed, and patient medications and allergies were reviewed. The patient's tolerance of previous anesthesia was also reviewed. The risks and benefits of the procedure and the sedation options and risks were discussed with the patient. All questions were answered, and informed consent was obtained. Prior Anticoagulants: The patient has taken aspirin, last dose was 5 days prior to procedure. ASA Grade Assessment: Per anesthesia. After reviewing the risks and benefits, the patient was deemed in satisfactory condition to undergo the procedure. After obtaining informed consent, the endoscope was passed under direct vision. Throughout the procedure, the patient's blood pressure, pulse, and oxygen saturations were monitored continuously. The Endoscope was introduced through the mouth, and advanced to the second part of duodenum. The upper GI endoscopy was accomplished without difficulty. The patient tolerated the procedure well. Scope In: 8:05:50 AM Scope Out: 8:16:39 AM Total Procedure Duration Time 0 hours 10 minutes 49 seconds Findings: The Z-line was regular and was found 30 cm from the incisors. A large hiatal hernia was present. A few less than 5 mm pedunculated and sessile polyps with no bleeding and no stigmata of recent bleeding were found in the gastric body. The polyp was removed with a hot snare. Resection and retrieval were complete. Diffuse mildly erythematous mucosa without bleeding was found in the gastric antrum. Biopsies were taken with a cold forceps for histology. Biopsies were taken with a cold forceps for Helicobacter pylori cultures. No gross lesions were noted in the duodenal bulb, in the first portion of the duodenum and in the second portion of the duodenum. Biopsies for histology were taken with a cold forceps for evaluation of celiac disease. Impression: - Z-line regular, 30 cm from the incisors. - Large hiatal hernia. - A few gastric polyps. Resected and retrieved. - Erythematous mucosa in the antrum. Biopsied. - No gross lesions in the duodenal bulb, in the first portion of the duodenum and in the second portion of the duodenum. Biopsied. Recommendation: - Await pathology results. - Discharge patient to home. - Resume previous diet. - Continue present medications. - Use Prilosec (omeprazole) 40 mg PO daily for 1 month. Procedure Code(s): --- Professional --- 61851, Esophagogastroduodenoscopy, flexible, transoral; with removal of tumor(s), polyp(s), or other lesion(s) by snare technique Diagnosis Code(s): --- Professional --- K44.9, Diaphragmatic hernia without obstruction or gangrene K31.7, Polyp of stomach and duodenum K31.89, Other diseases of stomach and duodenum R13.10, Dysphagia, unspecified CPT copyright 2017 [employer]. All rights reserved. The codes documented in this report are preliminary and upon drug abuse program coordinator review may be revised to meet current compliance requirements. MD Evelyn Arroyo MD 04/21/2021 8:56:21 AM This report has been signed electronically. Number of Addenda: 0 Note Initiated On: 04/21/2021 7:43 AM
--- NOTE | 2021-04-21 08:57 | OP.CCLET_ITS ---
04/21/2021 Agnes Velazquez [address] [place] [address] Re : Upper GI endoscopy procedure for Lady Aguilar Dear Dr. Velazquez This procedure was performed on Wednesday, April 21, 2021. My impressions and recommendations are as follows: Impressions : - Z-line regular, 30 cm from the incisors. - Large hiatal hernia. - A few gastric polyps. Resected and retrieved. - Erythematous mucosa in the antrum. Biopsied. - No gross lesions in the duodenal bulb, in the first portion of the duodenum and in the second portion of the duodenum. Biopsied. Recommendations : - Await pathology results. - Discharge patient to home. - Resume previous diet. - Continue present medications. - Use Prilosec (omeprazole) 40 mg PO daily for 1 month. My findings are described in the full procedure note, which is enclosed. If I can be of further assistance, please feel free to contact me at Doctor phone number(s): , Work: . Sincerely, MD Evelyn Arroyo MD 04/21/2021 8:56:21 AM This report has been signed electronically.
[2021-04-21 09:00] VITALS: BP 104/62; BP 130/74; PULSE 76; RESP 16; TEMP 35.9; O2SAT 94
[2021-04-21 09:25] VITALS: BP 130/74
[2021-04-21 09:30] LABS: Bedside Glucose 137 mg/dL (70-110)
== END 2021-04-21 23:59 | disposition home or self-care (01) ==
LOC: EN 06:50 → AC 06:51
PROVIDERS: PCP Internal Medicine; Referring Provider Internal Medicine; Visit Provider Surgery
PROC: 0DJD8ZZ Inspection of Lower Intestinal Tract, Via Natural or Artificial Opening Endoscopic (ICD-10-PCS; CPT 45378; principal; 2021-04-21 07:55)
DX: K29.70 Gastritis, unspecified, without bleeding (principal); Z79.4 Long term (current) use of insulin; E10.9 Type 1 diabetes mellitus without complications; K57.30 Diverticulosis of large intestine without perforation or abscess without bleeding; I10 Essential (primary) hypertension; K64.9 Unspecified hemorrhoids; Z86.010 Personal history of colon polyps; K44.9 Diaphragmatic hernia without obstruction or gangrene; K31.7 Polyp of stomach and duodenum; E78.5 Hyperlipidemia, unspecified; Z79.82 Long term (current) use of aspirin; E78.00 Pure hypercholesterolemia, unspecified; J45.909 Unspecified asthma, uncomplicated; M19.90 Unspecified osteoarthritis, unspecified site; F32.A Depression, unspecified; F41.9 Anxiety disorder, unspecified; K76.0 Fatty (change of) liver, not elsewhere classified; E03.9 Hypothyroidism, unspecified; E83.42 Hypomagnesemia; G25.81 Restless legs syndrome; Z79.899 Other long term (current) drug therapy
CPT/HCPCS: 45378; 43239; 82962; 88305; 88342; J7120; J2405

== ENCOUNTER 2022-03-04 16:37 | Observation (INO) | payer OTHER, MEDICARE, SELFPAY ==
[2022-03-04 16:40] VITALS: BP 141/78; PULSE 81; RESP 18; TEMP 36.1; O2SAT 96; BMI 42.3
--- NOTE | 2022-03-04 17:03 | RAD_ITS ---
EXAM: XR RIGHT KNEE COMPLETE, 4 OR MORE VIEWS CLINICAL INDICATION: pain TECHNIQUE: Four or more views of the right knee. This report was created using [employer] report generation technology. COMPARISON: None. FINDINGS: BONES/JOINTS: There is narrowing of the medial knee joint space. No acute fracture. No subluxation. Normal alignment. No sclerotic or destructive changes observed. SOFT TISSUES: Unremarkable. No soft tissue swelling or gas. No radiopaque foreign body. RAD/Knee 4 or More Views IMPRESSION: Mild degenerative changes with narrowing of the medial knee joint. There are no acute osseous abnormalities. Electronically Signed: Jm Guillermo MD at 17:39 EST ,
--- NOTE | 2022-03-04 17:04 | ED.VIS.LOWEX ---
HPI History of Present Illness Chief Complaint: Lower Extremity Injury Narrative Narrative: 66-year-old female presenting with bilateral knee pain. She states her left knee hurts more than her right knee. She states her right knee hurts right on the patella and the left knee hurts diffusely all around the knee. She states she slipped on water in the kitchen today and fell backwards. She states when she came down her left leg below the knee went outward and inward. She was unable to get up under her own strength secondary to pain. She took 2 Tylenol and waited to see if it would get better and since its not she came to the emergency room. [facility] Medical History Anemia Anxiety Anxiety and depression Arthritis Asthma Asthma Back pain Blackout Cardiology follow-up encounter Chest pain Dehydration Diabetes mellitus type 1 Dietary restriction Easy bruising Fatty liver Heartburn Hiatal hernia High cholesterol History of benign breast biopsy History of edema History of hiatal hernia Hyperlipidemia Hypertension Hypertension Hypomagnesemia Hypothyroidism Insulin dependent diabetes mellitus Iron deficiency Leg cramps Migraine headache Non-smoker Restless legs Shortness of breath on exertion Syncope Thyroid disease Wears glasses Home Medications fluticasone 500 mcg-salmeterol 50 mcg/dose blistr powdr for inhalation (Advair Diskus) 1 puff IH BID 04/21/18 [History Last Taken 09/25/18] levothyroxine 50 mcg tablet (Synthroid) 75 mcg PO DAILY 04/21/18 [History Last Taken 04/21/21 06:00] potassium chloride 20 mEq tablet,extended release(part/cryst) (Klor-Con M) 20 mcg PO QHS 04/21/18 [History Last Taken 09/24/18] cholecalciferol (vitamin D3) 50 mcg (2,000 unit) capsule 2,000 unit PO DAILY 09/25/18 [History Last Taken 09/25/18] montelukast 5 mg chewable tablet 5 mg PO DAILY 09/25/18 [History Last Taken 09/23/18] aspirin 81 mg chewable tablet 81 mg PO DAILY@0800 09/28/18 [Rx Last Taken Unknown] insulin glargine 100 unit/mL (3 mL) subcutaneous pen 15 unit (0.15 mL) subcut QHS ##2 09/28/18 [Rx Last Taken Unknown] insulin lispro 100 unit/mL subcutaneous pen 0 unit (0 mL) SQ TIDCM ##4 09/28/18 [Rx Last Taken Unknown] simvastatin 20 mg tablet 20 mg PO QHS #30 tabs 09/28/18 [Rx Last Taken Unknown] Saccharomyces boulardii 250 mg capsule (Daily Probiotic (S. boulardii)) 250 mg PO QHS 01/25/21 [History Last Taken Unknown] albuterol sulfate 90 mcg/actuation aerosol inhaler (ProAir HFA) 1 inh inhalation PRN PRN SOB 01/25/21 [History Last Taken 04/21/21 06:00] amlodipine 5 mg tablet (Norvasc) 5 mg PO DAILY 01/25/21 [History Last Taken 04/21/21 06:00] chlorthalidone 25 mg tablet 25 mg PO DAILY 01/25/21 [History Last Taken Unknown] losartan 100 mg tablet 100 mg PO QHS 01/25/21 [History Last Taken Unknown] triamcinolone acetonide 55 mcg nasal spray aerosol (Nasacort) 1 spray intranasal DAILY PRN Congestion 01/25/21 [History Last Taken Unknown] Centrum Silver Women 1 tab DAILY 03/04/22 [History Last Taken Unknown] omeprazole 40 mg capsule,delayed release 20 mg PO QHS 03/04/22 [History Last Taken Unknown] Allergy/AdvReac Type Severity Reaction Status Date / Time Penicillins [PCN] Allergy Anaphylaxis Verified 03/04/22 16:38 Family History Mother CAD (coronary artery disease) Hypertension Father Diabetes Heart disease Sister CVA (cerebral vascular accident) Diabetes Brother Diabetes Surgical History H/O section History of cardiac catheterization Hx of colonoscopy S/P tonsillectomy and adenoidectomy S/P tubal ligation Social History Smoking Status: Never smoker alcohol intake: never ROS ROS ED Constitutional Constitutional ED: Denies chills or fever(s) Eyes Eyes: Denies change in vision or diplopia ENT ENT ED: Denies rhinorrhea or sore throat Cardiovascular Cardiovascular: Denies chest pain or palpitations Respiratory/Chest Respiratory/Chest: Denies cough or dyspnea Gastrointestinal Gastrointestinal: Denies abdominal pain Genitourinary Genitourinary ED: Denies dysuria or hematuria Musculoskeletal Musculoskeletal: Reports other Details: Bilateral knee ; Denies arthralgias Integumentary Denies abscess or Abrasions Neurologic Neurologic: Denies headache(s) Psychiatric Psychiatric: Denies anxiety or depression EXAM Physical Exam Const Vital Signs: 03/04/22 16:40 Temperature 97 F L Temperature Source Temporal Pulse Rate 81 Respiratory Rate 18 Blood Pressure 141/78 H Blood Pressure Mean 99 Pulse Ox 96 Oxygen Delivery Method Room Air Positive obese General Appearance ED: NAD Nutritional Appearance: obese HEENT Reports moist mucous membranes Eyes PERRL Chest Wall inspection of chest normal Resp normal respiratory effort Cardio regular rate and regular rhythm Back/Spine Cervical Spine: Negative for cervical spine tenderness Thoracic Spine / Upper Back: Negative for thoracic spinal tenderness Lumbar Spine / Lower Back: Negative for lumbar spinal tenderness Extremity Extremity Narrative: Right knee: Tenderness to palpation over the patella. Palpated right knee flexion and sectioning maintained. Palpated no ligamentous laxity. Right knee extensor mechanism is intact. Discomfort with left knee: Limited exam secondary to pain. Diffuse pain noted medially and laterally. There is some swelling here. Left knee extensor mechanism is intact. Limited range of motion secondary to pain. Neuro oriented x3 and CN's II-XII intact bilaterally Sensorium / Orientation: alert Skin Lesions: no lesions Trauma: Negative for abrasion MDM MDM MDM Narrative Medical decision making narrative: Patient presenting with bilateral knee pain however her examination the right knee is only significant for pain over the patella. I did x-ray the right knee and my interpretation is negative for acute fracture or subluxation. The left knee is diffusely tender. Patient does have the left extensor mechanism intact however she is unable to range the left knee secondary to pain. Patient was treated with oxycodone when she arrived. On reevaluation she states her pain is minimal when she is lying still. We tried to ambulate her and she cannot walk. She was able to bear weight on her right leg but not on her left. Patient will likely need fci. I obtained blood work and I will obtain a CT of the left knee. CT of the left knee shows minimally depressed posterior lateral tibial plateau fracture. Case was discussed with Dr. Hobson. He recommended a knee immobilizer. He states she will need follow-up for this. He can be consulted in the hospital if needed. CBC is unremarkable. BMP shows potassium of 2.9. Patient was given 4 mEq of potassium. Patient will be discussed with the hospitalist for admission. Impression: 1. Mechanical fall 2. Right knee contusion 3. Left tibial plateau fracture 4. Hypokalemia Lab Data Attestation: I reviewed the patient's lab results. Labs: Laboratory Results - last 24 hr 03/04/22 03/04/22 18:55 18:55 WBC 10.8 RBC 4.69 Hgb 12.9 Hct 40.9 MCV 87.2 MCH 27.5 MCHC 31.5 L RDW Std Deviation 47.9 H RDW Coeff of Karolina 15.0 H Plt Count 321 MPV 11.1 Immature Gran % (Auto) 0.400 Neut % (Auto) 68.7 Lymph % (Auto) 19.6 [place] % (Auto) 8.4 Eos % (Auto) 2.4 Baso % (Auto) 0.5 Absolute Neuts (auto) 7.4 Absolute Lymphs (auto) 2.12 Nucleated RBC % 0 Sodium 142 Potassium 2.9 L Chloride 106 Carbon Dioxide 32.0 Anion Gap 4 L BUN 21 H Creatinine 0.94 Estim Creat Clear Calc 45.93 Est GFR (MDRD) Af Amer 76 Est GFR (MDRD) Non-Af 63 BUN/Creatinine Ratio 22.3 H Glucose 153 H Calcium 9.4 Radiography Diagnostic Testing: Clinical Impression(s) from Imaging Studies Knee X-Ray 03/04/22 17:03 IMPRESSION: Mild degenerative changes with narrowing of the medial knee joint. There are no acute osseous abnormalities. Electronically Signed: Jm Gulilermo MD at 17:39 EST , Knee X-Ray 03/04/22 17:24 IMPRESSION: Degenerative changes with joint space narrowing and osteophyte formation. There are no acute osseous abnormalities. Electronically Signed: Jm Guillermo MD at 17:39 EST , Lower Extremity CT 03/04/22 19:05 IMPRESSION: 1. Minimally depressed posterior lateral tibial plateau fracture best seen on the coronal reformatted images. There is a lipohemarthrosis present. 2. Degenerative changes with narrowing of the medial knee joint space. Electronically Signed: Jm Guillermo MD at 19:52 EST , Discharge Plan Triage Chief Complaint: Lower Extremity Injury ED Provider: Camron Khan Dx/Rx/DC Orders Prescriptions: No Action amlodipine [Norvasc] 5 mg tablet 5 mg PO DAILY losartan 100 mg tablet 100 mg PO QHS Saccharomyces boulardii [Daily Probiotic (S. boulardii)] 250 mg capsule 250 mg PO QHS chlorthalidone 25 mg tablet 25 mg PO DAILY albuterol sulfate [ProAir HFA] 90 mcg/actuation HFA aerosol inhaler 1 inh inhalation PRN PRN (Reason: SOB) triamcinolone acetonide [Nasacort] 55 mcg aerosol,spray 1 spray intranasal DAILY PRN (Reason: Congestion) Rx Instructions: administer into each nostril potassium chloride [Klor-Con M20] 20 tablet,ER particles/crystals 20 mcg PO QHS levothyroxine [Synthroid] 50 tablet 75 mcg PO DAILY fluticasone propion-salmeterol [Advair Diskus] 0 blister with device 1 puff IH BID cholecalciferol (vitamin D3) 2,000 UNIT capsule 2,000 unit PO DAILY montelukast 5 MG tablet,chewable 5 mg PO DAILY aspirin 81 MG tablet,chewable 81 mg PO DAILY@0800 0RF insulin glargine 100 UNIT/ML insulin pen 15 unit subcut QHS Qty: 2 0RF simvastatin 20 MG tablet 20 mg PO QHS Qty: 30 0RF insulin lispro 100 UNIT/ML insulin pen 0 unit SQ TIDCM Qty: 4 0RF Rx Instructions: 12u morning and afternoon, 14 u at dinner Centrum Silver Women 1 tab DAILY omeprazole 40 mg capsule,delayed release(DR/EC) 20 mg PO QHS Rx Instructions: Take at night due to levothyroxine in the a.m. Primary Care Provider: Agnes Velazquez Referrals: Agnes Velazquez DO [Primary Care Provider] -
[2022-03-04] MEDS: oxyCODONE 5 MG Tablet PO ×2 (17:07→23:36)
--- NOTE | 2022-03-04 17:24 | RAD_ITS ---
EXAM: XR LEFT KNEE COMPLETE, 4 OR MORE VIEWS CLINICAL INDICATION: FALL TECHNIQUE: Four or more views of the left knee. This report was created using [employer] report generation technology. COMPARISON: None. FINDINGS: BONES/JOINTS: There is narrowing of the medial knee joint with small osteophyte. No acute fracture. No subluxation. Normal alignment. No sclerotic or destructive changes observed. SOFT TISSUES: Unremarkable. No soft tissue swelling or gas. No radiopaque foreign body. RAD/Knee 4 or More Views IMPRESSION: Degenerative changes with joint space narrowing and osteophyte formation. There are no acute osseous abnormalities. Electronically Signed: Jm Guillermo MD at 17:39 EST ,
[2022-03-04 19:01] LABS: Absolute Lymphocyte Count 2.12 X10^3/uL (0.83-4.51); Absolute Neutrophil Count 7.4 X10^3/uL (2.0-7.7); Basophil# 0.05 X10^3/uL; Basophil% 0.5 % (0-1); Eosinophil# 0.26 X10^3/uL; Eosinophils% 2.4 % (0-5); Hematocrit 40.9 % (37-47); Hemoglobin 12.9 g/dL (12.0-15.0); Lymphocyte # 2.12 X10^3/ul (0.83-4.51); Lymphocyte % 19.6 % (19-41); Mean Corp Hgb Conc 31.5 g/dL (32-36); Mean Corpuscular Hgb 27.5 pg (27.0-32.0); Mean Corpuscular Volume 87.2 fL (81-99); Mean Platelet Vol. 11.1 fl (6.2-12.0); Monocyte# 0.91 X10^3/uL; Monocyte% 8.4 % (0-10); NRBC Flagged by Analyzer 0 % (0-5); Neutrophil # 7.44 X10^3/uL (2.7-7.7); Neutrophil % 68.7 % (47-70); Platelet Count 321 K/mm3 (150-450); RBC Distribution Width SD 47.9 fl (35.1-43.9); Red Blood Count 4.69 M/mm3 (4.2-5.4); White Blood Count 10.8 K/mm3 (4.4-11.0)
--- NOTE | 2022-03-04 19:05 | CT_ITS ---
EXAM: CT LEFT LOWER EXTREMITY WITHOUT INTRAVENOUS CONTRAST CLINICAL INDICATION: pain TECHNIQUE: Helically acquired images were obtained of the left lower extremity without intravenous contrast. 2-D reformats were performed by the technologist. This CT exam was performed using one or more of the following dose reduction techniques: automated exposure control, adjustment of the mA and/or kV according to patient size, and/or use of iterative reconstruction technique. This report was created using [employer] technology. COMPARISON: None. FINDINGS: BONES/JOINTS: There is narrowing of the medial knee joint space with small osteophytes present. There is a suprapatellar joint effusion has a fat fluid level indicating a lipohemarthrosis. There is a slightly depressed posterior lateral tibial plateau fracture present best seen on series 602 images 42 through 44. No sclerotic or destructive changes. SOFT TISSUES: Unremarkable. No soft tissue swelling or gas. No radiopaque foreign body. CT/Extremity Lower without Contra IMPRESSION: 1. Minimally depressed posterior lateral tibial plateau fracture best seen on the coronal reformatted images. There is a lipohemarthrosis present. 2. Degenerative changes with narrowing of the medial knee joint space. Electronically Signed: Jm Guillermo MD at 19:52 EST ,
[2022-03-04 19:15] LABS: Anion Gap 4 (5-15); BUN 21 mg/dL (7-18); BUN/Creat Ratio 22.3 RATIO (10-20); Calcium,Total 9.4 mg/dL (8.5-10.1); Chloride 106 mmol/L (98-107); Creatinine, Serum 0.94 mg/dL (0.55-1.02); EST Glomerular Filtration Rate 63 mL/min (>60); Est Glom Filt Rate - Afr Amer 76 mL/min (>60); Estimated Creatinine Clearance 45.93 ml/min; Glucose 153 mg/dL (74-106); Potassium 2.9 mmol/L (3.5-5.1); Sodium Level 142 mmol/L (136-145)
[2022-03-04] MEDS: Potassium Chloride Oral Tablet 20 MEQ 40 MEQ PO (19:34)
--- NOTE | 2022-03-04 21:10 | HP.PCM.HOS_ITS ---
HPI - General General Date of Admission: 03/04/22 Date of Service: 03/04/22 Chief Complaint: Fall HPI Narrative CHIVO CORREA, is a 66 F with a significant history of hypertension; diabetes mellitus and asthma who presents to the emergency department with a fall. Reportedly patient slipped in water at her kitchen and fell. Reportedly she twisted her left ankle in the process. She has pain in both ankles with left ankle worse on the right. She is unable to stand on her left ankle. At the emergency department patient could not tolerate weight on her left knee. A CT of her of her knee showed a patella fracture of the left knee. A knee immobilizer was ordered at the emergency department Emergency plan doctor discussed the case with orthopedic doctor who can follow- up on request [facility] Medical History Anemia Anxiety Anxiety and depression Arthritis Asthma Asthma Back pain Blackout Cardiology follow-up encounter Chest pain Dehydration Diabetes mellitus type 1 Dietary restriction Easy bruising Fatty liver Heartburn Hiatal hernia High cholesterol History of benign breast biopsy History of edema History of hiatal hernia Hyperlipidemia Hypertension Hypertension Hypomagnesemia Hypothyroidism Insulin dependent diabetes mellitus Iron deficiency Leg cramps Migraine headache Non-smoker Restless legs Shortness of breath on exertion Syncope Thyroid disease Wears glasses Home Medications fluticasone 500 mcg-salmeterol 50 mcg/dose blistr powdr for inhalation (Advair Diskus) 1 puff IH DAILY 04/21/18 [History Last Taken 09/25/18] levothyroxine 50 mcg tablet (Synthroid) 75 mcg PO DAILY 04/21/18 [History Last Taken 04/21/21 06:00] potassium chloride 20 mEq tablet,extended release(part/cryst) (Klor-Con M) 20 mcg PO QHS 04/21/18 [History Last Taken 09/24/18] cholecalciferol (vitamin D3) 50 mcg (2,000 unit) capsule 2,000 unit PO QHS 09/25/18 [History Last Taken 09/25/18] montelukast 5 mg chewable tablet 5 mg PO DAILY 09/25/18 [History Last Taken 09/23/18] aspirin 81 mg chewable tablet 81 mg PO DAILY@0800 09/28/18 [Rx Last Taken Unknown] insulin glargine 100 unit/mL (3 mL) subcutaneous pen 15 unit (0.15 mL) subcut QHS ##2 09/28/18 [Rx Last Taken 03/03/22 23:00] insulin lispro 100 unit/mL subcutaneous pen 0 unit (0 mL) SQ TIDCM ##4 09/28/18 [Rx Last Taken Unknown] simvastatin 20 mg tablet 20 mg PO QHS #30 tabs 09/28/18 [Rx Last Taken 03/03/22] Saccharomyces boulardii 250 mg capsule (Daily Probiotic (S. boulardii)) 250 mg PO QHS 01/25/21 [History Last Taken Unknown] albuterol sulfate 90 mcg/actuation aerosol inhaler (ProAir HFA) 1 inh inhalation Q6H PRN PRN SOB 01/25/21 [History Last Taken 04/21/21 06:00] amlodipine 5 mg tablet (Norvasc) 5 mg PO DAILY blood pressure 01/25/21 [History Last Taken 04/21/21 06:00] chlorthalidone 25 mg tablet 25 mg PO DAILY 01/25/21 [History Last Taken Unknown] losartan 100 mg tablet 100 mg PO QHS 01/25/21 [History Last Taken Unknown] triamcinolone acetonide 55 mcg nasal spray aerosol (Nasacort) 1 spray intranasal DAILY PRN Congestion 01/25/21 [History Last Taken Unknown] Centrum Silver Women 1 tab DAILY 03/04/22 [History Last Taken Unknown] omeprazole 40 mg capsule,delayed release 20 mg PO QHS 03/04/22 [History Last Taken Unknown] Allergy/AdvReac Type Severity Reaction Status Date / Time Penicillins [PCN] Allergy Anaphylaxis Verified 03/04/22 16:38 Family History Mother CAD (coronary artery disease) Hypertension Father Diabetes Heart disease Sister CVA (cerebral vascular accident) Diabetes Brother Diabetes Surgical History H/O section History of cardiac catheterization Hx of colonoscopy S/P tonsillectomy and adenoidectomy S/P tubal ligation Social History Smoking Status: Never smoker alcohol intake: never ROS ROS Narrative Pertinent positives and pertinent negatives as noted in HPI. All other systems were reviewed and are negative Vital Signs Vital Signs Vital Signs: 03/04/22 16:40 Temperature 97 F L Temperature Source Temporal Pulse Rate 81 Respiratory Rate 18 Blood Pressure 141/78 H Blood Pressure Mean 99 Pulse Ox 96 Oxygen Delivery Method Room Air Weight Weight: 105 kg Body Mass Index (BMI) 42.3 Physical Exam Narrative Physical exam: General: Well-nourished, well-developed. Head: Normocephalic, atraumatic, no tenderness Eyes: Vision is grossly intact. EOMI ENT, no trauma, moist mucous membranes, no rhinorrhea Neck: Nontender, full range of motion CVS: Regular rate and rhythm. S1-S2 present. No murmur, gallop or rub. Respiratory : clear to auscultation bilaterally, chest wall nontender, no wheezing Abdomen: Soft, nontender, nondistended, normal bowel sounds, no masses : Deferred Back: Nontender, no CVA tenderness, no midline spinal tenderness, deformities, step-offs Extremities: Left knee tenderness. Unable to raise her left lower extremity. Cannot extend right lower extremity. Power in right lower extremity 1 out of 5. Skin: Normal color, no trauma, abrasions Neuro: Alert, oriented, cranial nerves II through XII grossly intact. Psychiatry: Normal mood. Normal affect. Not depressed. Not anxious. Results Lab / Micro Data Result Diagrams: 03/04/22 18:55 03/04/22 18:55 Labs: Laboratory Results - last 24 hr 03/04/22 18:55: WBC 10.8, RBC 4.69, Hgb 12.9, Hct 40.9, MCV 87.2, MCH 27.5, MCHC 31.5 L, RDW Std Deviation 47.9 H, RDW Coeff of Karolina 15.0 H, Plt Count 321, MPV 11.1, Immature Gran % (Auto) 0.400, Neut % (Auto) 68.7, Lymph % (Auto) 19.6, [place] % (Auto) 8.4, Eos % (Auto) 2.4, Baso % (Auto) 0.5, Absolute Neuts (auto) 7.4, Absolute Lymphs (auto) 2.12, Nucleated RBC % 0 03/04/22 18:55: Sodium 142, Potassium 2.9 L, Chloride 106, Carbon Dioxide 32.0, Anion Gap 4 L, BUN 21 H, Creatinine 0.94, Estim Creat Clear Calc 45.93, Est GFR (MDRD) Af Amer 76, Est GFR (MDRD) Non-Af 63, BUN/Creatinine Ratio 22.3 H, G lucose 153 H, Calcium 9.4 Radiology Impression Knee X-Ray 03/04/22 17:03 IMPRESSION: Mild degenerative changes with narrowing of the medial knee joint. There are no acute osseous abnormalities. Electronically Signed: Jm Guillermo MD at 17:39 EST , Knee X-Ray 03/04/22 17:24 IMPRESSION: Degenerative changes with joint space narrowing and osteophyte formation. There are no acute osseous abnormalities. Electronically Signed: Jm Guillermo MD at 17:39 EST , Lower Extremity CT 03/04/22 19:05 IMPRESSION: 1. Minimally depressed posterior lateral tibial plateau fracture best seen on the coronal reformatted images. There is a lipohemarthrosis present. 2. Degenerative changes with narrowing of the medial knee joint space. Electronically Signed: Jm Guillermo MD at 19:52 EST , Assessment & Plan Assessment/Plan (1) Patella fracture: (2) Fall: (3) Morbid obesity: (4) Hypokalemia: PLAN: Plan Fall/patella fracture Lower extremity CT with left posterior lateral tibial plateau fractures. Weightbearing on left lower extremity as tolerated. As needed oxycodone and Tylenol ordered. PT and OT to eval and treat. Case management consult for disposition. Check vitamin D level Hypokalemia Potassium 2.9 on presentation. Likely secondary to chlorthalidone use. Replaced at emergency department. Trend BMP. Escalate home dose of potassium p.o. Diabetes mellitus Patient with mild hyperglycemia on presentation Basal insulin adjusted Monitor Accu-Cheks Correction scale insulin ordered. Morbid Obesity: BMI: 43.7 kg/m?. Complicates care. Lifestyle modification recommended. DVT prophylaxis Subcutaneous Lovenox ordered. Charges/Coding Visit Charges OBSV E&M: 08741 Initial observation care L3
[2022-03-04 22:36] VITALS: BP 141/78; PULSE 81; RESP 18; TEMP 36.1; O2SAT 96
[2022-03-04 22:51] VITALS: BP 124/69; PULSE 83; RESP 18; TEMP 36.5; O2SAT 95
[2022-03-04 22:52] VITALS: BMI 43.7
[2022-03-04] MEDS: Insulin Glargine-YFGN 100 UNIT/ML Pen 12 UNIT SC (23:32)
[2022-03-04] MEDS: Pantoprazole Sodium 20 MG Tablet PO (23:33)
[2022-03-04] MEDS: Atorvastatin Calcium 10 MG Tablet PO (23:33)
[2022-03-04] MEDS: Losartan Potassium 100 MG Tablet PO (23:33)
[2022-03-04] MEDS: Acetaminophen 325 MG Tablet 650 MG PO (23:36)
[2022-03-05 01:06] LABS: Bedside Glucose 147 mg/dL (74-106)
[2022-03-05] MEDS: oxyCODONE 5 MG Tablet PO (04:05)
[2022-03-05] MEDS: Levothyroxine 75 MCG Tablet PO (04:07)
[2022-03-05 04:47] VITALS: BP 117/67; PULSE 84; RESP 16; TEMP 36.6; O2SAT 96
[2022-03-05] MEDS: Insulin Lispro 100 UNIT/ML INSULN.PEN SC ×4 (06:15→22:44)
[2022-03-05 06:50] LABS: Bedside Glucose 178 mg/dL (74-106)
[2022-03-05 07:20] LABS: Absolute Lymphocyte Count 2.03 X10^3/uL (0.83-4.51); Absolute Neutrophil Count 5.3 X10^3/uL (2.0-7.7); Basophil# 0.06 X10^3/uL; Basophil% 0.7 % (0-1); Eosinophil# 0.38 X10^3/uL; Eosinophils% 4.4 % (0-5); Hematocrit 37.8 % (37-47); Hemoglobin 11.8 g/dL (12.0-15.0); Lymphocyte # 2.03 X10^3/ul (0.83-4.51); Lymphocyte % 23.4 % (19-41); Mean Corp Hgb Conc 31.2 g/dL (32-36); Mean Corpuscular Hgb 27.2 pg (27.0-32.0); Mean Corpuscular Volume 87.1 fL (81-99); Mean Platelet Vol. 11.7 fl (6.2-12.0); Monocyte# 0.87 X10^3/uL; NRBC Flagged by Analyzer 0 % (0-5); Neutrophil % 61.3 % (47-70); Platelet Count 282 K/mm3 (150-450); RBC Distribution Width CV 14.6 % (11.6-14.6); RBC Distribution Width SD 47.6 fl (35.1-43.9); Red Blood Count 4.34 M/mm3 (4.2-5.4); White Blood Count 8.7 K/mm3 (4.4-11.0)
[2022-03-05 07:27] VITALS: PULSE 84; RESP 18; O2SAT 94
[2022-03-05] MEDS: Albuterol 2.5 MG/3 ML VIAL.NEB. INHALATION ×2 (07:27→18:57)
[2022-03-05] MEDS: Budesonide Respules 0.5 MG/2 ML AMPUL.NEB. INHALATION ×2 (07:27→18:57)
[2022-03-05 08:03] LABS: Anion Gap 7 (5-15); BUN 20 mg/dL (7-18); BUN/Creat Ratio 24.2 RATIO (10-20); Calcium,Total 8.6 mg/dL (8.5-10.1); Chloride 105 mmol/L (98-107); Creatinine, Serum 0.83 mg/dL (0.55-1.02); EST Glomerular Filtration Rate 73 mL/min (>60); Est Glom Filt Rate - Afr Amer 89 mL/min (>60); Estimated Creatinine Clearance 52.02 ml/min; Glucose 161 mg/dL (74-106); Potassium 3.2 mmol/L (3.5-5.1); Sodium Level 139 mmol/L (136-145)
[2022-03-05] MEDS: 0.9% Saline Lock 10 ML Syringe IV (08:13)
[2022-03-05] MEDS: Ondansetron 4 MG/2 ML Vial IV (08:13)
[2022-03-05 08:18] VITALS: BP 112/64; PULSE 81; RESP 18; TEMP 36.6; O2SAT 97
[2022-03-05] MEDS: Multivitamins,Ther W-Minerals Tablet 1 TABLET PO (08:22)
[2022-03-05] MEDS: Cholecalciferol (VIT D3) 25 MCG TABLET (1,000 UNITS) 50 MCG PO (08:22)
[2022-03-05] MEDS: Potassium Chloride Oral Tablet 20 MEQ PO ×2 (08:22→16:31)
[2022-03-05] MEDS: Aspirin 81 MG TAB.CHEW PO (08:22)
[2022-03-05] MEDS: Montelukast 10 MG Tablet 5 MG PO (08:22)
[2022-03-05] MEDS: amLODIPine 5 MG Tablet PO (08:22)
[2022-03-05] MEDS: Chlorthalidone 50 MG Tablet 25 MG PO (08:22)
[2022-03-05] MEDS: Enoxaparin 40 MG/0.4 ML Syringe SC (08:23)
--- NOTE | 2022-03-05 11:00 | NURSING ---
Daughter asking if we can apply ice to left knee. RN stated we need a order. Text sent to Dr Sosa for ice order for knee. Daughter wanting ice to both knees as other one is athritic. Ice packs applied to both knees.
--- NOTE | 2022-03-05 13:45 | CASEMGMT ---
RN CM Face to Face with patient for initial transition planning/care coordination assessment. RN CM introduced self and role at [facility]. Patient lying in bed, alert and oriented, daughter at bedside. Patient willing to participate in assessment and is able to answer all questions appropriately. Care providers, pharmacy, and demographics verified. Patient wishes to SNF for additional therapy. Patient states she has no further needs or concerns at this time. SW updated regarding request for SNF placement. CM to follow for discharge planning needs that may arise. PCP: Marcus Specialists: none Preferred [facility]acy: [facility] Insurance: AeNYDIA banerjee Prescription Benefit: yes Living Will/HPOA: yes, daughter Elizabeth Napoles LNOK: daughter, son Living Arrangements: Patient lives alone in a single story condo with 2 steps to enter the home. Patient states she was independent at home. Transportation: self, son, sister DME/HHC: Patient states she has raised toilet, cane, walker, and grab bars at home. No previous HHC or SNF. Disposition Plan: SNF pending acceptance and precert. Vandana MOORE, RN, CM
[2022-03-05 14:30] VITALS: BP 105/70; PULSE 80; RESP 16; TEMP 36.4; O2SAT 98
[2022-03-05] MEDS: Acetaminophen 325 MG Tablet 650 MG PO (14:54)
--- NOTE | 2022-03-05 15:05 | CASEMGMT ---
BERNARD HITCHCOCK in to complete WIN. BERNARD HITCHCOCK explained WIN form to patient, patient voiced understanding. Patient signed WIN form and filed in chart. Merly provided with copy of signed WIN form. Patient had no further questions or concerns at this time.
--- NOTE | 2022-03-05 15:07 | PN.HOSP_ITS ---
Subjective Subjective Patient seen and examined. She did complain of some pain in her left knee. She had the knee immobilizer in place. She had no other complaints and review of systems was otherwise negative. Objective Data Objective Data Vital Signs: Vital Signs Temp Pulse Resp BP Pulse Ox O2 Del Method 97.8 F 81 18 112/64 97 Room Air 03/05/22 08:18 03/05/22 08:18 03/05/22 08:18 03/05/22 08:18 03/05/22 08:18 03/05/22 08:18 Oxygen Delivery Method Room Air Weight: 238 lb 15.697 oz Body Mass Index (BMI) 43.7 Intake & Output: Intake and Output for Last 24 Hours 03/03/22 03/04/22 03/05/22 23:59 23:59 23:59 Intake Total 200 / 200 650 / 650 Output Total 300 / 300 Balance 200 / 200 350 / 350 Lab / Micro Data Result Diagrams: 03/05/22 06:05 03/05/22 06:05 Labs: Laboratory Results - last 24 hr 03/04/22 18:55: WBC 10.8, RBC 4.69, Hgb 12.9, Hct 40.9, MCV 87.2, MCH 27.5, MCHC 31.5 L, RDW Std Deviation 47.9 H, RDW Coeff of Karolina 15.0 H, Plt Count 321, MPV 11.1, Immature Gran % (Auto) 0.400, Neut % (Auto) 68.7, Lymph % (Auto) 19.6, [place] % (Auto) 8.4, Eos % (Auto) 2.4, Baso % (Auto) 0.5, Absolute Neuts (auto) 7.4, Absolute Lymphs (auto) 2.12, Nucleated RBC % 0 03/04/22 18:55: Sodium 142, Potassium 2.9 L, Chloride 106, Carbon Dioxide 32.0, Anion Gap 4 L, BUN 21 H, Creatinine 0.94, Estim Creat Clear Calc 45.93, Est GFR (MDRD) Af Amer 76, Est GFR (MDRD) Non-Af 63, BUN/Creatinine Ratio 22.3 H, Glucose 153 H, Calcium 9.4 03/04/22 22:53: POC Glucose 147 H 03/05/22 06:05: WBC 8.7, RBC 4.34, Hgb 11.8 L, Hct 37.8, MCV 87.1, MCH 27.2, MCHC 31.2 L, RDW Std Deviation 47.6 H, RDW Coeff of Karolina 14.6, Plt Count 282, MPV 11.7, Immature Gran % (Auto) 0.200, Neut % (Auto) 61.3, Lymph % (Auto) 23.4, [place] % (Auto) 10.0, Eos % (Auto) 4.4, Baso % (Auto) 0.7, Absolute Neuts (auto) 5.3, Absolute Lymphs (auto) 2.03, Nucleated RBC % 0 03/05/22 06:05: Sodium 139, Potassium 3.2 L, Chloride 105, Carbon Dioxide 27.0, Anion Gap 7, BUN 20 H, Creatinine 0.83, Estim Creat Clear Calc 52.02, Est GFR (MDRD) Af Amer 89, Est GFR (MDRD) Non-Af 73, BUN/Creatinine Ratio 24.2 H, Glucose 161 H, Calcium 8.6 03/05/22 06:12: POC Glucose 178 H Radiography Diagnostic Testing: Radiology Impression Knee X-Ray 03/04/22 17:03 IMPRESSION: Mild degenerative changes with narrowing of the medial knee joint. There are no acute osseous abnormalities. Electronically Signed: Jm Guillermo MD at 17:39 EST Reading Location ID and State: [facility] / [place] Tel , Service support , Knee X-Ray 03/04/22 17:24 IMPRESSION: Degenerative changes with joint space narrowing and osteophyte formation. There are no acute osseous abnormalities. Electronically Signed: Jm Guillermo MD at 17:39 EST , Lower Extremity CT 03/04/22 19:05 IMPRESSION: 1. Minimally depressed posterior lateral tibial plateau fracture best seen on the coronal reformatted images. There is a lipohemarthrosis present. 2. Degenerative changes with narrowing of the medial knee joint space. Electronically Signed: Jm Guillermo MD at 19:52 EST , Physical Exam Const alert, oriented x3 and no apparent distress HEENT head/scalp atraumatic, moist oral mucous membranes and oropharynx normal Head and Scalp: normocephalic Eyes PERRL, EOMs intact bilaterally and conjunctivae normal Neck no lymphadenopathy and supple Resp normal respiratory effort and no retractions Cardio regular rate, regular rhythm, S1 normal heart sound, S2 normal heart sound and no murmurs GI normal to inspection, nondistended, normoactive bowel sounds, soft to palpation, non-tender and non-distended Extremity normal to inspection and no clubbing, cyanosis or edema Extremity Narrative: left knee in knee immobilizer Neuro oriented x3, CN's II-XII intact bilaterally, moves all extremities and no focal motor deficits Sensorium / Orientation: awake and alert Motor Exam: strength 5/5 throughout Psych affect normal Assessment & Plan Assessment/Plan (1) Fall: (2) Patella fracture: PLAN: Plan #left tibial plateau fracture * due to mechanical fall * knee immobilizer in place * on PO tylenol, oxycodone nad IV morphine prn for pain * consult orthopedic surgery * PT/OT consult * fall precautions * #Debility due to mechanical fall: as above #Hypothyroidism: on synthroid #Hypertension: on chlorthalidone, losartan and amlodipine #TYpe 1 diabetes mellitus * on lantus 15 units daily. ISS. Accuchecks ACHS * #Hyperlipidemia:on statin DVT prophylaxis: lovenox Charges/Coding Visit Charges Inpatient E&M: 93401 Subs Hosp L2
[2022-03-05 17:00] LABS: Bedside Glucose 208 mg/dL (74-106)
[2022-03-05 17:00] LABS: Bedside Glucose 166 mg/dL (74-106)
--- NOTE | 2022-03-05 17:23 | CM.ED ---
BURKE Note BURKE met with patient and provided her with list of SNF rehab facilities based on demographic and geographic area. Patient's daughter came and requested list of SNF for [facility]. BURKE provided patient with list of [facility] SNF in network. Patient voiced appreciation. BURKE advised that [facility] social services assistant will follow up on Monday. No other issues or concerns voiced. Plan: SNF Nupur [facility]
[2022-03-05 18:57] VITALS: PULSE 94; RESP 16
[2022-03-05 20:30] VITALS: BP 115/70; PULSE 86; RESP 16; TEMP 36.8; O2SAT 96
[2022-03-05] MEDS: Insulin Glargine-YFGN 100 UNIT/ML Pen 12 UNIT SC (22:43)
[2022-03-05] MEDS: Pantoprazole Sodium 20 MG Tablet PO (22:45)
[2022-03-05] MEDS: Ketorolac 15 MG/ML Vial IV (22:45)
[2022-03-05] MEDS: Atorvastatin Calcium 10 MG Tablet PO (22:45)
[2022-03-05] MEDS: Losartan Potassium 100 MG Tablet PO (22:45)
[2022-03-05] MEDS: Haloperidol Lactate 5 MG/ML Vial 4 MG IM (22:46)
[2022-03-06 00:25] LABS: Bedside Glucose 179 mg/dL (74-106)
[2022-03-06 02:30] VITALS: BP 111/64; PULSE 72; RESP 14; TEMP 36.4; O2SAT 92
[2022-03-06 05:59] LABS: Absolute Neutrophil Count 6.1 X10^3/uL (2.0-7.7); Basophil# 0.05 X10^3/uL; Basophil% 0.5 % (0-1); Eosinophil# 0.27 X10^3/uL; Eosinophils% 2.9 % (0-5); Hematocrit 36.4 % (37-47); Hemoglobin 11.6 g/dL (12.0-15.0); Lymphocyte % 22.2 % (19-41); Mean Corp Hgb Conc 31.9 g/dL (32-36); Mean Corpuscular Hgb 27.8 pg (27.0-32.0); Mean Corpuscular Volume 87.3 fL (81-99); Mean Platelet Vol. 11.6 fl (6.2-12.0); Monocyte# 0.94 X10^3/uL; NRBC Flagged by Analyzer 0 % (0-5); Neutrophil # 6.06 X10^3/uL (2.7-7.7); Neutrophil % 64.2 % (47-70); Platelet Count 276 K/mm3 (150-450); RBC Distribution Width CV 14.9 % (11.6-14.6); RBC Distribution Width SD 47.9 fl (35.1-43.9); Red Blood Count 4.17 M/mm3 (4.2-5.4); White Blood Count 9.4 K/mm3 (4.4-11.0)
[2022-03-06 06:25] LABS: Anion Gap 7 (5-15); BUN 21 mg/dL (7-18); BUN/Creat Ratio 21.8 RATIO (10-20); Calcium,Total 8.9 mg/dL (8.5-10.1); Chloride 104 mmol/L (98-107); Creatinine, Serum 0.96 mg/dL (0.55-1.02); EST Glomerular Filtration Rate 61 mL/min (>60); Est Glom Filt Rate - Afr Amer 74 mL/min (>60); Estimated Creatinine Clearance 44.98 ml/min; Glucose 163 mg/dL (74-106); Potassium 3.3 mmol/L (3.5-5.1); Sodium Level 138 mmol/L (136-145)
[2022-03-06] MEDS: Levothyroxine 75 MCG Tablet PO (06:34)
[2022-03-06] MEDS: Insulin Lispro 100 UNIT/ML INSULN.PEN SC ×3 (06:34→21:49)
[2022-03-06] MEDS: Budesonide Respules 0.5 MG/2 ML AMPUL.NEB. INHALATION ×2 (07:09→19:30)
[2022-03-06] MEDS: Albuterol 2.5 MG/3 ML VIAL.NEB. INHALATION ×2 (07:09→13:16)
[2022-03-06 07:10] VITALS: PULSE 88; RESP 16; O2SAT 98
[2022-03-06 07:15] LABS: Bedside Glucose 159 mg/dL (74-106)
--- NOTE | 2022-03-06 07:49 | CON.PCM.OR_ITS ---
HPI Consult Data Date of Consult: 03/06/22 HPI Narrative Reason for Consultation: Fall, left knee pain HPI Narrative: CHIVO CORREA, is a 66 F with morbid obesity presents today with left knee pain. Patient reports a mechanical fall after slipping on some water in her kitchen 2 days ago. She presented to the emergency department with bilateral knee pain. X-rays were consistent with bilateral osteoarthritis. CT scan was performed showing a posterior lateral impaction fracture of the lateral tibial plateau. Patient reports 6 out of 10 pain today located over the left knee. Right knee pain is improving. She is able to bear weight on the right. She cannot bear weight on the left. She was placed in a knee immobilizer in the emergency department. Patient normally lives at home and takes care of her own activities of daily living. Has associated swelling of bilateral knees. No associated numbness and tingling. Additionally, patient reports pain in the right knee. She denies any chronic pain however she notes that the right knee has been more painful than the left for quite some time. She is able to put weight on the right side and not the left. [facility] Medical History Anemia Anxiety Anxiety and depression Arthritis Asthma Asthma Back pain Blackout Cardiology follow-up encounter Chest pain Dehydration Diabetes mellitus type 1 Dietary restriction Easy bruising Fatty liver Heartburn Hiatal hernia High cholesterol History of benign breast biopsy History of edema History of hiatal hernia Hyperlipidemia Hypertension Hypertension Hypomagnesemia Hypothyroidism Insulin dependent diabetes mellitus Iron deficiency Leg cramps Migraine headache Non-smoker Restless legs Shortness of breath on exertion Syncope Thyroid disease Wears glasses Home Medications fluticasone 500 mcg-salmeterol 50 mcg/dose blistr powdr for inhalation (Advair Diskus) 1 puff IH DAILY 04/21/18 [History Last Taken 09/25/18] levothyroxine 50 mcg tablet (Synthroid) 75 mcg PO DAILY 04/21/18 [History Last Taken 04/21/21 06:00] potassium chloride 20 mEq tablet,extended release(part/cryst) (Klor-Con M) 20 mcg PO QHS 04/21/18 [History Last Taken 09/24/18] cholecalciferol (vitamin D3) 50 mcg (2,000 unit) capsule 2,000 unit PO QHS 09/25/18 [History Last Taken 09/25/18] montelukast 5 mg chewable tablet 5 mg PO DAILY 09/25/18 [History Last Taken 09/23/18] aspirin 81 mg chewable tablet 81 mg PO DAILY@0800 09/28/18 [Rx Last Taken Unknown] insulin glargine 100 unit/mL (3 mL) subcutaneous pen 15 unit (0.15 mL) subcut QHS ##2 09/28/18 [Rx Last Taken 03/03/22 23:00] insulin lispro 100 unit/mL subcutaneous pen 0 unit (0 mL) SQ TIDCM ##4 09/28/18 [Rx Last Taken Unknown] simvastatin 20 mg tablet 20 mg PO QHS #30 tabs 09/28/18 [Rx Last Taken 03/03/22] Saccharomyces boulardii 250 mg capsule (Daily Probiotic (S. boulardii)) 250 mg PO QHS 01/25/21 [History Last Taken Unknown] albuterol sulfate 90 mcg/actuation aerosol inhaler (ProAir HFA) 1 inh inhalation Q6H PRN PRN SOB 01/25/21 [History Last Taken 04/21/21 06:00] amlodipine 5 mg tablet (Norvasc) 5 mg PO DAILY blood pressure 01/25/21 [History Last Taken 04/21/21 06:00] chlorthalidone 25 mg tablet 25 mg PO DAILY 01/25/21 [History Last Taken Unknown] losartan 100 mg tablet 100 mg PO QHS 01/25/21 [History Last Taken Unknown] triamcinolone acetonide 55 mcg nasal spray aerosol (Nasacort) 1 spray intranasal DAILY PRN Congestion 01/25/21 [History Last Taken Unknown] Centrum Silver Women 1 tab DAILY 03/04/22 [History Last Taken Unknown] omeprazole 40 mg capsule,delayed release 20 mg PO QHS 03/04/22 [History Last Taken Unknown] Allergy/AdvReac Type Severity Reaction Status Date / Time Penicillins [PCN] Allergy Anaphylaxis Verified 03/04/22 16:38 Family History Mother CAD (coronary artery disease) Hypertension Father Diabetes Heart disease Sister CVA (cerebral vascular accident) Diabetes Brother Diabetes Surgical History H/O section History of cardiac catheterization Hx of colonoscopy S/P tonsillectomy and adenoidectomy S/P tubal ligation Social History Smoking Status: Never smoker alcohol intake: never ROS Constitutional Constitutional: Reports systems reviewed and no addt'l complaints, except as documented Eyes Eyes: Reports systems reviewed and no addt'l complaints, except as documented ENT HEENT: Reports systems reviewed and no addt'l complaints, except as documented Cardiovascular Cardiovascular: Reports systems reviewed and no addt'l complaints, except as documented Respiratory/Chest Respiratory/Chest: Reports systems reviewed and no addt'l complaints, except as documented Gastrointestinal Gastrointestinal: Reports systems reviewed and no addt'l complaints, except as documented Genitourinary Genitourinary: Reports systems reviewed and no addt'l complaints, except as documented Musculoskeletal Musculoskeletal: Reports systems reviewed and no addt'l complaints, except as documented Integumentary Integumentary: Reports systems reviewed and no addt'l complaints, except as documented Neurologic Neurologic: Reports systems reviewed and no addt'l complaints, except as documented Psychiatric Psychiatric: Reports systems reviewed and no addt'l complaints, except as documented Vital Signs Vital Signs Vital Signs: 03/05/22 08:18 03/05/22 10:00 03/05/22 08:00 Temperature 97.8 F Temperature Source Oral Pulse Rate 81 Pulse Strength Normal (2+) Respiratory Rate 18 Respiratory Effort Normal Non-Labored Respiratory Depth Normal Respiratory Pattern Normal Blood Pressure 112/64 Blood Pressure Mean 80 Blood Pressure Source Monitor Blood Pressure Position Semi-Fowlers Blood Pressure Location Right Arm Pulse Ox 97 Oxygen Delivery Method Room Air Room Air Oxygen Flow Rate (L/min) 03/05/22 14:30 03/05/22 18:57 03/05/22 22:00 Temperature 97.6 F L Temperature Source Oral Pulse Rate 80 94 Pulse Strength Normal (2+) Respiratory Rate 16 16 Respiratory Effort Respiratory Depth Respiratory Pattern Normal Blood Pressure 105/70 Blood Pressure Mean 81 Blood Pressure Source Monitor Blood Pressure Position Semi-Fowlers Blood Pressure Location Right Forearm Pulse Ox 98 Oxygen Delivery Method Room Air Oxygen Flow Rate (L/min) 03/05/22 22:00 03/06/22 04:00 03/05/22 20:30 Temperature 98.2 F Temperature Source Oral Pulse Rate 86 Pulse Strength Respiratory Rate 16 Respiratory Effort Normal Labored Normal Non-Labored Respiratory Depth Shallow Normal Respiratory Pattern Tachypnea Normal Blood Pressure 115/70 Blood Pressure Mean 85 Blood Pressure Source Monitor Blood Pressure Position Semi-Fowlers Blood Pressure Location Right Arm Pulse Ox 96 Oxygen Delivery Method Venturi Mask Room Air Room Air Oxygen Flow Rate (L/min) 3 03/06/22 02:30 03/06/22 07:10 03/06/22 07:10 Temperature 97.6 F L Temperature Source Temporal Pulse Rate 72 88 Pulse Strength Respiratory Rate 14 16 Respiratory Effort Respiratory Depth Respiratory Pattern Normal Blood Pressure 111/64 Blood Pressure Mean 79 Blood Pressure Source Monitor Blood Pressure Position Semi-Fowlers Blood Pressure Location Right Arm Pulse Ox 92 98 Oxygen Delivery Method Room Air Room Air Oxygen Flow Rate (L/min) Weight Weight: 238 lb 15.697 oz Body Mass Index (BMI) 43.7 Physical Exam Const alert and oriented x3 General Appearance: cooperative HEENT normocephalic Eyes PERRL Neck no JVD Resp normal respiratory effort Cardio Cardio Narrative: Regular pulse rate GI non-distended GI Narrative: Obese Extremity Extremity Narrative: Left knee: Large effusion. Mild anterior ecchymosis. Intact extensor mechanism with 5 out of 5 knee extension. Tenderness palpation over the posterior lateral joint line. Firm endpoint to varus and valgus stress testing. Saroj's deferred secondary to pain. Tolerates passive and active range of motion. Calves are soft and supple right knee: Moderate effusion. No ecchymosis over the knee. Mild anterior leg ecchymosis (reported as preceding the injury). Calves are soft and supple. Tolerates passive and active range of motion. Tenderness over the medial joint line. Stable to varus and valgus stress with firm endpoints. Firm endpoint with Saroj examination. Skin no rashes or lesions noted and no wounds Neuro CN's II-XII intact bilaterally Psych affect normal Medical Records Data Attestation: I reviewed the patient's medical records Lab / Micro Data Attestation: I reviewed the patient's lab results. Result Diagrams: 03/06/22 04:31 03/06/22 04:31 Labs: Laboratory Results - last 24 hr 03/05/22 06:05: Sodium 139, Potassium 3.2 L, Chloride 105, Carbon Dioxide 27.0, Anion Gap 7, BUN 20 H, Creatinine 0.83, Estim Creat Clear Calc 52.02, Est GFR (MDRD) Af Amer 89, Est GFR (MDRD) Non-Af 73, BUN/Creatinine Ratio 24.2 H, Glucose 161 H, Calcium 8.6 03/05/22 11:27: POC Glucose 208 H 03/05/22 16:27: POC Glucose 166 H 03/05/22 22:36: POC Glucose 179 H 03/06/22 04:31: WBC 9.4, RBC 4.17 L, Hgb 11.6 L, Hct 36.4 L, MCV 87.3, MCH 27.8, MCHC 31.9 L, RDW Std Deviation 47.9 H, RDW Coeff of Karolina 14.9 H, Plt Count 276, MPV 11.6, Immature Gran % (Auto) 0.200, Neut % (Auto) 64.2, Lymph % (Auto) 22.2, [place] % (Auto) 10.0, Eos % (Auto) 2.9, Baso % (Auto) 0.5, Absolute Neuts (auto) 6.1, Absolute Lymphs (auto) 2.10, Nucleated RBC % 0 03/06/22 04:31: Sodium 138, Potassium 3.3 L, Chloride 104, Carbon Dioxide 27.0, Anion Gap 7, BUN 21 H, Creatinine 0.96, Estim Creat Clear Calc 44.98, Est GFR (MDRD) Af Amer 74, Est GFR (MDRD) Non-Af 61, BUN/Creatinine Ratio 21.8 H, Glucose 163 H, Calcium 8.9 03/06/22 06:32: POC Glucose 159 H Assessment & Plan Assessment/Plan (1) Fracture of lateral condyle of left tibia: PLAN: CT scan was reviewed. Natural history of the disease process and treatment options were discussed with the patient. At this time she has bilateral knee osteoarthritis which is most likely exacerbating some of her symptoms. She has a very minimal posterior lateral corner tibial plateau fracture with impaction. This could be consistent with some additional internal derangement. Further examination once the knee is settled will be important. At this time however importance of mobilization was discussed with the patient. Patient will likely be comfortable in a knee immobilizer at this time. It will also help with varus and valgus stability. It will not be a definitive brace for her long-term care she will need to begin range of motion and this brace will not allow however, this is what she has been provided at this time by the emergency department. When appropriate we will switch her to a hinged brace to allow for range of motion as well as varus and valgus stability. Importance of ice and elevation were also expressed the patient. At this time with symptomatic care and beginning early range of motion exercises once in the swelling and pain have subsided. I would like for the patient to follow me up in the office in 2 weeks. She will need occupational therapy and physical the rapy to help with mobilization and activities of daily living in the meantime. Due to her inability to bear weight she will likely need some form of inpatient rehabilitation to build upper body strength and ambulation in the short-term. Patient's current knee immobilizer was too small. She will need the next size up. Patient should follow-up in my office in 2 weeks after the injury. [facility] Office: (2) Fall: PLAN: Mechanical fall, per primary service (3) Morbid obesity: PLAN: Per primary service. I did explain how her morbid obesity affects her orthopedic outcomes. (4) Bilateral primary osteoarthritis of knee: PLAN: See above plan. Right knee pain likely related to acute contusion on top of chronic osteoarthritis. Knee feels stable at this time. Recommended continue with the Toradol as needed and continue weightbearing as tolerated on the right lower extremity.
[2022-03-06 08:30] VITALS: BP 114/58; PULSE 76; RESP 16; TEMP 36.7; O2SAT 94
[2022-03-06] MEDS: Montelukast 10 MG Tablet 5 MG PO (08:49)
[2022-03-06] MEDS: Aspirin 81 MG TAB.CHEW PO (08:50)
[2022-03-06] MEDS: Chlorthalidone 50 MG Tablet 25 MG PO (08:50)
[2022-03-06] MEDS: Potassium Chloride Oral Tablet 20 MEQ PO ×2 (08:50→16:13)
[2022-03-06] MEDS: Multivitamins,Ther W-Minerals Tablet 1 TABLET PO (08:50)
[2022-03-06] MEDS: Cholecalciferol (VIT D3) 25 MCG TABLET (1,000 UNITS) 50 MCG PO (08:51)
[2022-03-06] MEDS: Enoxaparin 40 MG/0.4 ML Syringe SC (08:51)
[2022-03-06] MEDS: amLODIPine 5 MG Tablet PO (08:51)
[2022-03-06] MEDS: 0.9% Saline Lock 10 ML Syringe IV (08:57)
[2022-03-06] MEDS: Ketorolac 15 MG/ML Vial IV (08:57)
--- NOTE | 2022-03-06 10:00 | NURSING ---
This RN in the room with patient and Dr. Hobson. Daughter on speaker phone and wants to stress patient went without ice to knees x2 days. Doctor states RN in room at this time with ICE packs refilled for knees. Patient has had ice since yesterdays order. Patient voiced no concerns to RN.
--- NOTE | 2022-03-06 10:35 | PN.HOSP_ITS ---
Subjective Subjective Patient seen and examined. She was a bit tearful and said she ahd a panic attack overnight. Pain is well controlled and review of systems is otherwise negative. She did work well with physical therapy today. Objective Data Objective Data Vital Signs: Vital Signs Temp Pulse Resp BP Pulse Ox O2 Del Method O2 Flow Rate 98.0 F 76 16 114/58 L 94 Room Air 3 03/06/22 08:30 03/06/22 08:30 03/06/22 08:30 03/06/22 08:30 03/06/22 08:30 03/06/22 08:30 03/05/22 22:00 Oxygen Flow Rate (L/min) 3 Oxygen Delivery Method Room Air Weight: 238 lb 15.697 oz Body Mass Index (BMI) 43.7 Intake & Output: Intake and Output for Last 24 Hours 03/04/22 03/05/22 03/06/22 23:59 23:59 23:59 Intake Total 200 / 200 950 / 950 Output Total 750 / 1350 900 / 900 Balance 200 / 200 200 / -400 -900 / -900 Lab / Micro Data Result Diagrams: 03/06/22 04:31 03/06/22 04:31 Labs: Laboratory Results - last 24 hr 03/05/22 11:27: POC Glucose 208 H 03/05/22 16:27: POC Glucose 166 H 03/05/22 22:36: POC Glucose 179 H 03/06/22 04:31: WBC 9.4, RBC 4.17 L, Hgb 11.6 L, Hct 36.4 L, MCV 87.3, MCH 27.8, MCHC 31.9 L, RDW Std Deviation 47.9 H, RDW Coeff of Karolina 14.9 H, Plt Count 276, MPV 11.6, Immature Gran % (Auto) 0.200, Neut % (Auto) 64.2, Lymph % (Auto) 22.2, [place] % (Auto) 10.0, Eos % (Auto) 2.9, Baso % (Auto) 0.5, Absolute Neuts (auto) 6.1, Absolute Lymphs (auto) 2.10, Nucleated RBC % 0 03/06/22 04:31: Sodium 138, Potassium 3.3 L, Chloride 104, Carbon Dioxide 27.0, Anion Gap 7, BUN 21 H, Creatinine 0.96, Estim Creat Clear Calc 44.98, Est GFR (MDRD) Af Amer 74, Est GFR (MDRD) Non-Af 61, BUN/Creatinine Ratio 21.8 H, Glucose 163 H, Calcium 8.9 03/06/22 06:32: POC Glucose 159 H Physical Exam Const alert, oriented x3 and no apparent distress HEENT head/scalp atraumatic, moist oral mucous membranes and oropharynx normal Head and Scalp: normocephalic Mouth: oral and palatal mucosa normal Eyes PERRL, EOMs intact bilaterally and conjunctivae normal Neck no lymphadenopathy and supple Resp normal respiratory effort and no retractions Cardio regular rate, regular rhythm, S1 normal heart sound, S2 normal heart sound and no murmurs GI normal to inspection, nondistended, normoactive bowel sounds, soft to palpation, non-tender and non-distended Extremity normal to inspection and no clubbing, cyanosis or edema Extremity Narrative: left knee in knee immobilizer Neuro oriented x3, CN's II-XII intact bilaterally, moves all extremities and no focal motor deficits Sensorium / Orientation: awake and alert Motor Exam: strength 5/5 throughout Psych affect normal Assessment & Plan Assessment/Plan (1) Fall: (2) Patella fracture: PLAN: Plan #left tibial plateau fracture * due to mechanical fall * knee immobilizer in place * on PO tylenol, oxycodone nad IV morphine prn for pain * orthopedic surgery on board * PT/OT consult * fall precautions * #hypokalemia: K is 3.3. Will replace and trend #Debility due to mechanical fall: as above #Hypothyroidism: on synthroid #Hypertension: on chlorthalidone, losartan and amlodipine #TYpe 1 diabetes mellitus * on lantus 15 units daily. ISS. Accuchecks ACHS * #Hyperlipidemia:on statin DVT prophylaxis: lovenox Disposition: will need placement Charges/Coding Visit Charges Inpatient E&M: 27084 Subs Hosp L2
[2022-03-06 11:50] LABS: Bedside Glucose 233 mg/dL (74-106)
--- NOTE | 2022-03-06 12:00 | NURSING ---
Daughter at the desk asking if her mom could get a insulin injection because her blood sugar was 252 and patient is not feeling well. This RN explained she got a blood sugar check at 11:30 and 2 units of insulin coverage. Daughter stated she did not see me check her blood sugar so we checked it with her own devise. Lindsey recording studio intern in room rechecking her blood sugar and going over her home insulin instructions. Patient resting comfortable in chair in room.
[2022-03-06 13:17] VITALS: PULSE 80; RESP 17
--- NOTE | 2022-03-06 13:19 | NURSING ---
pt and daughter requested blood sugar to be retaken at 1240..result done. home insulin gone over with pt and doc texted to look at it
[2022-03-06 13:36] LABS: Bedside Glucose 262 mg/dL (74-106)
[2022-03-06 17:55] LABS: Bedside Glucose 99 mg/dL (74-106)
[2022-03-06 19:30] VITALS: PULSE 84; RESP 16
[2022-03-06 20:30] VITALS: BP 117/66; PULSE 83; RESP 16; TEMP 37.2; O2SAT 94
[2022-03-06] MEDS: Insulin Glargine-YFGN 100 UNIT/ML Pen 15 UNIT SC (21:48)
[2022-03-06] MEDS: Losartan Potassium 100 MG Tablet PO (21:49)
[2022-03-06] MEDS: Atorvastatin Calcium 10 MG Tablet PO (21:49)
[2022-03-06] MEDS: Pantoprazole Sodium 20 MG Tablet PO (21:49)
[2022-03-06 22:46] LABS: Bedside Glucose 151 mg/dL (74-106)
[2022-03-07] VITALS (8 sets, daily range): BP systolic 117–138; BP diastolic 61–82; PULSE 82–92; RESP 16–18; TEMP 36.4–36.8; O2SAT 92–97
[2022-03-07 05:59] LABS: Absolute Lymphocyte Count 1.86 X10^3/uL (0.83-4.51); Absolute Neutrophil Count 5.9 X10^3/uL (2.0-7.7); Basophil# 0.05 X10^3/uL; Basophil% 0.6 % (0-1); Eosinophil# 0.32 X10^3/uL; Eosinophils% 3.5 % (0-5); Hematocrit 37.4 % (37-47); Hemoglobin 12.2 g/dL (12.0-15.0); Lymphocyte # 1.86 X10^3/ul (0.83-4.51); Lymphocyte % 20.6 % (19-41); Mean Corp Hgb Conc 32.6 g/dL (32-36); Mean Corpuscular Hgb 28.4 pg (27.0-32.0); Mean Platelet Vol. 11.6 fl (6.2-12.0); Monocyte# 0.92 X10^3/uL; Monocyte% 10.2 % (0-10); NRBC Flagged by Analyzer 0 % (0-5); Neutrophil # 5.85 X10^3/uL (2.7-7.7); Neutrophil % 64.8 % (47-70); Platelet Count 277 K/mm3 (150-450)
[2022-03-07 06:31] LABS: Anion Gap 7 (5-15); BUN 18 mg/dL (7-18); BUN/Creat Ratio 22.6 RATIO (10-20); Calcium,Total 8.9 mg/dL (8.5-10.1); Chloride 107 mmol/L (98-107); EST Glomerular Filtration Rate 77 mL/min (>60); Est Glom Filt Rate - Afr Amer 93 mL/min (>60); Estimated Creatinine Clearance 53.97 ml/min; Glucose 133 mg/dL (74-106); Potassium 3.4 mmol/L (3.5-5.1); Sodium Level 140 mmol/L (136-145)
[2022-03-07] MEDS: Insulin Lispro 100 UNIT/ML INSULN.PEN SC (06:37)
[2022-03-07] MEDS: 0.9% Saline Lock 10 ML Syringe IV ×2 (06:38→09:27)
[2022-03-07] MEDS: Levothyroxine 75 MCG Tablet PO (06:38)
[2022-03-07 07:05] LABS: Bedside Glucose 150 mg/dL (74-106)
[2022-03-07] MEDS: Budesonide Respules 0.5 MG/2 ML AMPUL.NEB. INHALATION ×2 (07:18→19:13)
[2022-03-07] MEDS: Albuterol 2.5 MG/3 ML VIAL.NEB. INHALATION ×2 (07:18→13:11)
[2022-03-07 08:10] LABS: Vitamin D,25 Hydroxy 65.1 ng/mL
[2022-03-07] MEDS: Cholecalciferol (VIT D3) 25 MCG TABLET (1,000 UNITS) 50 MCG PO (09:07)
[2022-03-07] MEDS: Aspirin 81 MG TAB.CHEW PO (09:08)
[2022-03-07] MEDS: Insulin Lispro 100 UNIT/ML INSULN.PEN 12 UNIT SC ×2 (09:20→13:39)
[2022-03-07] MEDS: Potassium Chloride Oral Tablet 20 MEQ PO ×2 (09:21→18:05)
[2022-03-07] MEDS: Senna/Docusate Sodium 1 Tablet 2 TABLET PO (09:26)
[2022-03-07] MEDS: Ketorolac 15 MG/ML Vial IV ×2 (09:29→20:49)
[2022-03-07] MEDS: Chlorthalidone 50 MG Tablet 25 MG PO (10:02)
[2022-03-07] MEDS: Montelukast 10 MG Tablet 5 MG PO (10:03)
[2022-03-07] MEDS: Enoxaparin 40 MG/0.4 ML Syringe SC (10:03)
[2022-03-07] MEDS: amLODIPine 5 MG Tablet PO (10:04)
[2022-03-07 10:10] LABS: Bedside Glucose 195 mg/dL (74-106)
--- NOTE | 2022-03-07 10:13 | CASEMGMT ---
Social Work Pt's daughter provided SW with a copy of pts living will and health care POA naming daughter Elizabeth Napoles. Copy of documents placed on pt chart. IRENE Everett
--- NOTE | 2022-03-07 10:15 | CASEMGMT ---
Social Work SW met with pt and introduced self and role of SW. Pt dgt Elizabeth in the room and pt gave permission to speak about discharge in daughters presence. Pt confirms that she is not able to return home at this time as she has three steps to enter home and lives alone. Pt is now NWB and feels she will need SNF. Weekend SW provided SNF list. Pt dgt states their preferred providers are [facility]. [facility]. SW explained insurance coverage. Pt is requesting a private room, recliner to sleep in and internet access at facility. Arabella, discharge office clerk assistant, updated and will send referral. Plan: [facility], pending acceptance and precert. IRENE Everett
--- NOTE | 2022-03-07 10:22 | PN.HOSP_ITS ---
Subjective Subjective Patient seen and examined. Her pain was fairly well controlled, and she rated it at 5/10. She had a good night's sleep. REview of systems otherwise negative. Objective Data Objective Data Vital Signs: Vital Signs Temp Pulse Resp BP Pulse Ox O2 Del Method O2 Flow Rate 98.1 F 85 18 128/82 H 94 Room Air 3 03/07/22 08:08 03/07/22 08:08 03/07/22 08:08 03/07/22 08:08 03/07/22 08:08 03/07/22 09:30 03/05/22 22:00 Oxygen Flow Rate (L/min) 3 Oxygen Delivery Method Room Air Weight: 238 lb 15.697 oz Body Mass Index (BMI) 43.7 Intake & Output: Intake and Output for Last 24 Hours 03/05/22 03/06/22 03/07/22 23:59 23:59 23:59 Intake Total 950 / 950 700 / 700 Output Total 750 / 1350 1800 / 2100 1300 / 1300 Balance 200 / -400 -1100 / -1400 -1300 / -1300 Lab / Micro Data Result Diagrams: 03/07/22 04:23 03/07/22 04:23 Labs: Laboratory Results - last 24 hr 03/05/22 06:05: Vitamin D 25-Hydroxy 65.1 03/06/22 11:26: POC Glucose 233 H 03/06/22 12:42: POC Glucose 262 H 03/06/22 16:10: POC Glucose 99 03/06/22 21:39: POC Glucose 151 H 03/07/22 04:23: WBC 9.0, RBC 4.30, Hgb 12.2, Hct 37.4, MCV 87.0, MCH 28.4, MCHC 32.6, RDW Std Deviation 48.0 H, RDW Coeff of Karolina 15.0 H, Plt Count 277, MPV 11.6, Immature Gran % (Auto) 0.300, Neut % (Auto) 64.8, Lymph % (Auto) 20.6, Bennett % (Auto) 10.2 H, Eos % (Auto) 3.5, Baso % (Auto) 0.6, Absolute Neuts (auto) 5.9, Absolute Lymphs (auto) 1.86, Nucleated RBC % 0 03/07/22 04:23: Sodium 140, Potassium 3.4 L, Chloride 107, Carbon Dioxide 26.0, Anion Gap 7, BUN 18, Creatinine 0.80, Estim Creat Clear Calc 53.97, Est GFR (MDRD) Af Amer 93, Est GFR (MDRD) Non-Af 77, BUN/Creatinine Ratio 22.6 H, Glucose 133 H, Calcium 8.9 03/07/22 06:29: POC Glucose 150 H 03/07/22 09:19: POC Glucose 195 H Physical Exam Const alert, oriented x3 and no apparent distress HEENT head/scalp atraumatic, moist oral mucous membranes and oropharynx normal Head and Scalp: normocephalic Mouth: oral and palatal mucosa normal Eyes PERRL, EOMs intact bilaterally and conjunctivae normal Neck no lymphadenopathy and supple Resp normal respiratory effort and no retractions Cardio regular rate, regular rhythm, S1 normal heart sound, S2 normal heart sound and no murmurs GI normal to inspection, nondistended, normoactive bowel sounds, soft to palpation, non-tender and non-distended Extremity normal to inspection and no clubbing, cyanosis or edema Extremity Narrative: left knee in knee immobilizer Neuro oriented x3, CN's II-XII intact bilaterally, moves all extremities and no focal motor deficits Sensorium / Orientation: awake and alert Motor Exam: strength 5/5 throughout Psych affect normal Assessment & Plan Assessment/Plan (1) Fall: (2) Patella fracture: PLAN: Plan #left tibial plateau fracture * due to mechanical fall * knee immobilizer in place * on PO tylenol, oxycodone nad IV morphine prn for pain * orthopedic surgery on board * PT/OT consult * fall precautions * #hypokalemia: K is 3.4. Will replace and trend #Debility due to mechanical fall: as above #Hypothyroidism: on synthroid #Hypertension: on chlorthalidone, losartan and amlodipine #TYpe 1 diabetes mellitus * on lantus 15 units daily. ISS. Accuchecks ACHS * #Hyperlipidemia:on statin DVT prophylaxis: lovenox Disposition: awaiting placement Charges/Coding Visit Charges Inpatient E&M: 30449 Subs Hosp L2
--- NOTE | 2022-03-07 10:27 | CASEMGMT ---
Discharge Instrumentation Instructor This auto service writer sent referrals via [facility] to [facility] and [facility]. Brayan ANDREW Tear Down Man
[2022-03-07 12:05] LABS: Bedside Glucose 182 mg/dL (74-106)
--- NOTE | 2022-03-07 12:47 | CASEMGMT ---
Discharge Pan Tank Worker This entry writer called [facility]ana [facility] and got no answer and sent a message in [facility]. [facility] reached out and accepted patient. [facility] is patient second choice. BURKE Campos notified. Brayan ANDREW Consulting Intern
--- NOTE | 2022-03-07 13:07 | CASEMGMT ---
Discharge Mental Health Clinician This lyric writer talked to Vida at [facility]. Vida is slowly reviewing referrals. Will keep following up. Brayan ANDREW Electrical Mechanic
--- NOTE | 2022-03-07 13:54 | CASEMGMT ---
Discharge Machine Setter Supervisor Vida from [facility] reached out. Patient has been accepted. This television writer asked Vida to start pre-cert. Vida also said they can give patient a private room, wifi and a recliner. BURKE Campos notified. Brayan ANDREW Park Services Specialist
[2022-03-07 14:05] LABS: Bedside Glucose 149 mg/dL (74-106)
--- NOTE | 2022-03-07 14:30 | CASEMGMT ---
Social Work SW met with pt and called dgt Elizabeth on speaker phone. Pt and dgt updated that [facility]ana Orellana is able to accept pt and meet criteria set. Abelardo to be started at this time. Pt and Elizabeth agreeable to dc plan. Pt inquiring about different insurance plans. SW provided information on [employer] in which pt can call for assistance in choosing an insurance and information sheet from [employer] for insurance plans. Pt appreciative of information. Plan: Maryana Reyna, pending IRENE Hidalgo
[2022-03-07 18:31] LABS: Bedside Glucose 122 mg/dL (74-106)
[2022-03-07] MEDS: Insulin Lispro 100 UNIT/ML INSULN.PEN 14 UNIT SC (19:03)
[2022-03-07 19:25] LABS: Bedside Glucose 175 mg/dL (74-106)
[2022-03-07] MEDS: Pantoprazole Sodium 20 MG Tablet PO (20:42)
[2022-03-07] MEDS: Losartan Potassium 100 MG Tablet PO (20:42)
[2022-03-07] MEDS: Atorvastatin Calcium 10 MG Tablet PO (20:43)
[2022-03-07] MEDS: Insulin Glargine-YFGN 100 UNIT/ML Pen 15 UNIT SC (20:45)
[2022-03-07 21:21] LABS: Bedside Glucose 124 mg/dL (74-106)
[2022-03-08] VITALS (7 sets, daily range): BP systolic 110–125; BP diastolic 57–73; PULSE 74–101; RESP 16–20; TEMP 36.5–37.2; O2SAT 94–99
[2022-03-08] MEDS: Levothyroxine 75 MCG Tablet PO (05:44)
[2022-03-08 06:03] LABS: Absolute Lymphocyte Count 1.95 X10^3/uL (0.83-4.51); Basophil# 0.07 X10^3/uL; Basophil% 0.8 % (0-1); Eosinophil# 0.38 X10^3/uL; Eosinophils% 4.6 % (0-5); Hematocrit 37.3 % (37-47); Hemoglobin 12.1 g/dL (12.0-15.0); Lymphocyte # 1.95 X10^3/ul (0.83-4.51); Lymphocyte % 23.6 % (19-41); Mean Corp Hgb Conc 32.4 g/dL (32-36); Mean Corpuscular Volume 86.3 fL (81-99); Mean Platelet Vol. 11.2 fl (6.2-12.0); Monocyte# 0.88 X10^3/uL; Monocyte% 10.6 % (0-10); NRBC Flagged by Analyzer 0 % (0-5); Neutrophil # 4.96 X10^3/uL (2.7-7.7); Platelet Count 280 K/mm3 (150-450); RBC Distribution Width CV 14.8 % (11.6-14.6); RBC Distribution Width SD 47.5 fl (35.1-43.9); Red Blood Count 4.32 M/mm3 (4.2-5.4); White Blood Count 8.3 K/mm3 (4.4-11.0)
[2022-03-08 06:33] LABS: Anion Gap 7 (5-15); BUN 25 mg/dL (7-18); BUN/Creat Ratio 29.6 RATIO (10-20); Calcium,Total 9.4 mg/dL (8.5-10.1); Chloride 106 mmol/L (98-107); Creatinine, Serum 0.84 mg/dL (0.55-1.02); EST Glomerular Filtration Rate 71 mL/min (>60); Est Glom Filt Rate - Afr Amer 86 mL/min (>60); Glucose 137 mg/dL (74-106); Potassium 3.9 mmol/L (3.5-5.1); Sodium Level 140 mmol/L (136-145)
[2022-03-08] MEDS: Budesonide Respules 0.5 MG/2 ML AMPUL.NEB. INHALATION ×2 (07:05→19:10)
[2022-03-08] MEDS: Aspirin 81 MG TAB.CHEW PO (08:27)
[2022-03-08] MEDS: Multivitamins,Ther W-Minerals Tablet 1 TABLET PO (08:28)
[2022-03-08] MEDS: Potassium Chloride Oral Tablet 20 MEQ PO ×2 (08:28→17:26)
[2022-03-08] MEDS: Insulin Lispro 100 UNIT/ML INSULN.PEN 12 UNIT SC ×2 (09:38→14:33)
[2022-03-08] MEDS: Chlorthalidone 50 MG Tablet 25 MG PO (09:49)
[2022-03-08] MEDS: amLODIPine 5 MG Tablet PO (09:50)
[2022-03-08] MEDS: Enoxaparin 40 MG/0.4 ML Syringe SC (09:50)
[2022-03-08] MEDS: Montelukast 10 MG Tablet 5 MG PO (09:50)
[2022-03-08] MEDS: Cholecalciferol (VIT D3) 25 MCG TABLET (1,000 UNITS) 50 MCG PO (09:51)
--- NOTE | 2022-03-08 10:34 | VDLE_ITS ---
Reason For Study: LEG PAIN RIGHT LEFT GSV is normal. GSV is normal. CFV is compressible, spontaneous, phasic, CFV is compressible, spontaneous, phasic, competent and demonstrates normal competent, and demonstrates normal augmentation. augmentation. FV is compressible, spontaneous, phasic, FV is compressible, spontaneous, phasic, competent and demonstrates normal competent and demonstrates normal augmentation. augmentation. Portions of FV flow documented in color and Portions of flow in FV, POP V and T/P Trunk pulsed wave doppler due to patients documented in color and pulsed wave doppler intolerance to compressions. due to patients intolerance to compressions POP V is compressible, spontaneous, phasic, and immobility. competent and demonstrates normal POP V is spontaneous, phasic and competent augmentation. T/P Trunk is spontaneous, phasic and T/P Trunk is compressible. competent. PTV is compressible. Acute deep vein thrombosis is noted in the RT PerV is compressible. left posterior tibial vein. Procedure LT PerV is compressible. This is a venous duplex using B-mode, color flow and spectral Doppler. Exam performed portable in patient room. The exam was diagnostic. A preliminary report was called and/or faxed to Rosemarie Marino/Leah 3 Nurse. VL/Venous Duplex US - Darell Extrem Interpretation Summary No evidence for acute deep venous thrombosis right lower extremity. Compression limitations as noted. Acute deep venous thrombosis left posterior tibial vein. Technical limitations with compression analysis and reliance upon flow as noted . Patent and compressible bilateral great saphenous veins Ordering Physician: Argelia Sosa Referring Physician: Agnes Velazquez M.D. Performed By: Alistair Hurley RVT
--- NOTE | 2022-03-08 10:34 | PN.HOSP_ITS ---
Subjective Subjective Patient seen and examined. She complained of pain in her left calf. Pain in her knee is better controlled. REview of systems is otherwise negative. Objective Data Objective Data Vital Signs: Vital Signs Temp Pulse Resp BP Pulse Ox O2 Del Method O2 Flow Rate 97.7 F L 81 18 119/57 L 95 Room Air 3 03/08/22 09:41 03/08/22 09:41 03/08/22 09:41 03/08/22 09:41 03/08/22 09:41 03/08/22 09:44 03/05/22 22:00 Oxygen Flow Rate (L/min) 3 Oxygen Delivery Method Room Air Weight: 238 lb 15.697 oz Body Mass Index (BMI) 43.7 Intake & Output: Intake and Output for Last 24 Hours 03/06/22 03/07/22 03/08/22 23:59 23:59 23:59 Intake Total 700 / 700 1100 / 1400 500 / 500 Output Total 1800 / 2100 1300 / 1300 Balance -1100 / -1400 -200 / 100 500 / 500 Lab / Micro Data Result Diagrams: 03/08/22 04:49 03/08/22 04:49 Labs: Laboratory Results - last 24 hr 03/07/22 11:42: POC Glucose 182 H 03/07/22 13:36: POC Glucose 149 H 03/07/22 18:03: POC Glucose 122 H 03/07/22 19:01: POC Glucose 175 H 03/07/22 20:38: POC Glucose 124 H 03/08/22 04:49: WBC 8.3, RBC 4.32, Hgb 12.1, Hct 37.3, MCV 86.3, MCH 28.0, MCHC 32.4, RDW Std Deviation 47.5 H, RDW Coeff of Karolina 14.8 H, Plt Count 280, MPV 11.2, Immature Gran % (Auto) 0.400, Neut % (Auto) 60.0, Lymph % (Auto) 23.6, Vermilion % (Auto) 10.6 H, Eos % (Auto) 4.6, Baso % (Auto) 0.8, Absolute Neuts (auto) 5.0, Absolute Lymphs (auto) 1.95, Nucleated RBC % 0 03/08/22 04:49: Sodium 140, Potassium 3.9, Chloride 106, Carbon Dioxide 27.0, Anion Gap 7, BUN 25 H, Creatinine 0.84, Estim Creat Clear Calc 51.40, Est GFR (MDRD) Af Amer 86, Est GFR (MDRD) Non-Af 71, BUN/Creatinine Ratio 29.6 H, Gl ucose 137 H, Calcium 9.4 Physical Exam Const alert, oriented x3 and no apparent distress HEENT head/scalp atraumatic, moist oral mucous membranes and oropharynx normal Head and Scalp: normocephalic Mouth: oral and palatal mucosa normal Eyes PERRL, EOMs intact bilaterally and conjunctivae normal Neck no lymphadenopathy and supple Resp normal respiratory effort and no retractions Cardio regular rate, regular rhythm, S1 normal heart sound, S2 normal heart sound and no murmurs GI normal to inspection, nondistended, normoactive bowel sounds, soft to palpation, non-tender and non-distended Extremity normal to inspection and no clubbing, cyanosis or edema Extremity Narrative: left knee in knee immobilizer; tenderness in her LLE calf Neuro oriented x3, CN's II-XII intact bilaterally, moves all extremities and no focal motor deficits Sensorium / Orientation: awake and alert Motor Exam: strength 5/5 throughout Psych affect normal Assessment & Plan Assessment/Plan (1) Fall: (2) Patella fracture: PLAN: Plan #left tibial plateau fracture * due to mechanical fall * knee immobilizer in place * on PO tylenol, oxycodone and IV morphine prn for pain * orthopedic surgery on board * PT/OT consult * fall precautions * #hypokalemia: resolved. #Debility due to mechanical fall: as above #Hypothyroidism: on synthroid #Hypertension: on chlorthalidone, losartan and amlodipine #TYpe 1 diabetes mellitus * on lantus 15 units daily. ISS. Accuchecks ACHS * #Hyperlipidemia:on statin DVT prophylaxis: lovenox Disposition: awaiting placement Charges/Coding Visit Charges Inpatient E&M: 57731 Subs Hosp L2
--- NOTE | 2022-03-08 10:45 | CASEMGMT ---
Discharge Management Expert Maryana Due[facility] reached out. Insurance denied. Peer to peer phone number is [phone] opt 2. Or the member can appeal [phone]. Private pay rates are $230/day. BURKE Terrell notified. Brayan ANDREW Manual Tester
--- NOTE | 2022-03-08 12:10 | CASEMGMT ---
Addendum entered by Nidhi Tejada 03/08/22 15:17: SW received phone call from Dr. Sosa. Dr explained has been on hold for some time with [employer] and needs to return to responsibilties. Dr Sosa informed attempted to leave message but did not have all the necessary information the insurance company was requesting. Dr. Sosa would like the chance to speak with insurance as Dr feels pt cannot return home. SW called the peer to peer line to attempt to set up the call. After waiting on hold for 30 minutes SW pressed option to leave a message. SW provided necessary information and contact number for Dr. Sosa. SW informed Dr. Sosa of the message being left for the peer to peer. Addendum entered by Nidhi Tejada 03/08/22 13:49: SW in to inform pt of denial and peer to peer call with insurance. Pt surprised, uncertain how to react. SW discussed alternative options if [employer] denies again. SW offered suggestions of pt appealing with insurance company herself, or the option of home health. Pt voiced understanding. SEARCH ENGINE OPTIMIZATION CONSULTANT was in room at the time and discuss need for SNF as pt cannot navigate stairs or bear weight to complete IADLs such as cooking or bathing self. BURKE shared this information with Dr. Sosa for the peer to peer pc. IRENE Ignacio Original Note: Social work SW contacted Dr. Sosa to discuss peer to peer. Dr. Sosa asked SW to review therapy notes. SW provided info as written by therapy. Dr Sosa willing to complete peer to peer later this day. SW provided peer to peer number and pt identifiers that Dr. Sosa will need to make the call. PLAN: Await peer to peer pc IRENE Ignacio
[2022-03-08 12:14] LABS: Bedside Glucose 227 mg/dL (74-106)
[2022-03-08] MEDS: APIXABAN 5 MG TABLET 10 MG PO ×2 (14:34→21:37)
[2022-03-08] MEDS: Ketorolac 15 MG/ML Vial IV (14:38)
[2022-03-08] MEDS: 0.9% Saline Lock 10 ML Syringe IV (14:39)
--- NOTE | 2022-03-08 15:24 | CASEMGMT ---
Social work SW in to inform pt that Dr not able to reach insurance. SW explained that SW left message to set up a time appropriate for the call tomorrow in hopes that the insurance company will call back and denial will get overturned. Pt was reassured there will be no discharge today until this matter is addressed. SW informed pt Dr. Sosa does not plan to d/c today. IRENE Ignacio
[2022-03-08 15:30] LABS: Bedside Glucose 145 mg/dL (74-106)
[2022-03-08] MEDS: Insulin Lispro 100 UNIT/ML INSULN.PEN 14 UNIT SC ×2 (16:35→19:01)
[2022-03-08 17:00] LABS: Bedside Glucose 206 mg/dL (74-106)
[2022-03-08 19:25] LABS: Bedside Glucose 165 mg/dL (74-106)
--- NOTE | 2022-03-08 19:47 | CPS ---
[1910] Pt. refused Albuterol at this time. Pt. states the medicine seems to make her anxious and increases her heart rate. She will call later if she needs tx. throughout the night.
[2022-03-08] MEDS: Insulin Glargine-YFGN 100 UNIT/ML Pen 15 UNIT SC (21:36)
[2022-03-08] MEDS: Atorvastatin Calcium 10 MG Tablet PO (21:37)
[2022-03-08] MEDS: Losartan Potassium 100 MG Tablet PO (21:38)
[2022-03-08] MEDS: Pantoprazole Sodium 20 MG Tablet PO (21:38)
[2022-03-08 22:16] LABS: Bedside Glucose 102 mg/dL (74-106)
[2022-03-09] MEDS: Ketorolac 15 MG/ML Vial IV ×2 (02:29→16:52)
[2022-03-09] MEDS: 0.9% Saline Lock 10 ML Syringe IV (02:29)
[2022-03-09 02:30] VITALS: BP 100/74; PULSE 91; RESP 16; TEMP 36.6; O2SAT 94
[2022-03-09] MEDS: Levothyroxine 75 MCG Tablet PO (06:37)
[2022-03-09 06:40] VITALS: PULSE 79; RESP 17; O2SAT 91
[2022-03-09] MEDS: Budesonide Respules 0.5 MG/2 ML AMPUL.NEB. INHALATION (06:53)
[2022-03-09] MEDS: Albuterol 2.5 MG/3 ML VIAL.NEB. INHALATION ×2 (06:53→13:21)
[2022-03-09 07:00] LABS: Bedside Glucose 129 mg/dL (74-106)
[2022-03-09 07:01] LABS: Absolute Lymphocyte Count 2.15 X10^3/uL (0.83-4.51); Absolute Neutrophil Count 4.8 X10^3/uL (2.0-7.7); Basophil# 0.06 X10^3/uL; Basophil% 0.7 % (0-1); Eosinophil# 0.41 X10^3/uL; Hematocrit 38.3 % (37-47); Hemoglobin 12.1 g/dL (12.0-15.0); Lymphocyte # 2.15 X10^3/ul (0.83-4.51); Lymphocyte % 26.2 % (19-41); Mean Corp Hgb Conc 31.6 g/dL (32-36); Mean Corpuscular Hgb 27.4 pg (27.0-32.0); Mean Corpuscular Volume 86.8 fL (81-99); Mean Platelet Vol. 11.4 fl (6.2-12.0); Monocyte# 0.73 X10^3/uL; Monocyte% 8.9 % (0-10); NRBC Flagged by Analyzer 0 % (0-5); Neutrophil # 4.83 X10^3/uL (2.7-7.7); Neutrophil % 58.7 % (47-70); Platelet Count 303 K/mm3 (150-450); RBC Distribution Width CV 14.8 % (11.6-14.6); RBC Distribution Width SD 47.8 fl (35.1-43.9); Red Blood Count 4.41 M/mm3 (4.2-5.4); White Blood Count 8.2 K/mm3 (4.4-11.0)
[2022-03-09 07:23] LABS: Anion Gap 7 (5-15); BUN 31 mg/dL (7-18); BUN/Creat Ratio 31.6 RATIO (10-20); Chloride 106 mmol/L (98-107); Creatinine, Serum 0.98 mg/dL (0.55-1.02); EST Glomerular Filtration Rate 60 mL/min (>60); Est Glom Filt Rate - Afr Amer 73 mL/min (>60); Estimated Creatinine Clearance 44.06 ml/min; Glucose 133 mg/dL (74-106); Potassium 4.2 mmol/L (3.5-5.1); Sodium Level 139 mmol/L (136-145)
[2022-03-09] MEDS: Chlorthalidone 50 MG Tablet 25 MG PO (08:59)
[2022-03-09] MEDS: Potassium Chloride Oral Tablet 20 MEQ PO (08:59)
[2022-03-09] MEDS: Aspirin 81 MG TAB.CHEW PO (08:59)
[2022-03-09] MEDS: Cholecalciferol (VIT D3) 25 MCG TABLET (1,000 UNITS) 50 MCG PO (08:59)
[2022-03-09] MEDS: amLODIPine 5 MG Tablet PO (08:59)
[2022-03-09] MEDS: Insulin Lispro 100 UNIT/ML INSULN.PEN 12 UNIT SC ×2 (08:59→14:35)
[2022-03-09] MEDS: APIXABAN 5 MG TABLET 10 MG PO (09:00)
[2022-03-09] MEDS: Multivitamins,Ther W-Minerals Tablet 1 TABLET PO (09:00)
[2022-03-09] MEDS: Montelukast 10 MG Tablet 5 MG PO (09:00)
[2022-03-09 09:15] VITALS: BP 143/54; PULSE 84; RESP 18; TEMP 36.3; O2SAT 94
[2022-03-09 09:30] LABS: Bedside Glucose 168 mg/dL (74-106)
--- NOTE | 2022-03-09 10:10 | CASEMGMT ---
Social Work SW notified by Dr. Sosa that peer to peer went well and insurance auth has been obtained. SW updated pt, who expressed gratitude for [facility] staff. SW also updated [facility]ana [facility]rell[facility] that pt obtained auth via [facility]. SW also informed the SNF that pt is not medically ready to discharge. SW asked if SNF gets information on dates that auth is good for to share with SW. PLAN: [facility]ana Dueñas, when medically ready IRENE Ignacio
--- NOTE | 2022-03-09 11:40 | PN.HOSP_ITS ---
Subjective Subjective Patient seen and examined. She did complain of some mild pain in her left calf but was improved from yesterday. Review of systems otherwise negative. Duplex done yesterday showed a small DVT in the popliteal veins of the left lower extremity. Objective Data Objective Data Vital Signs: Vital Signs Temp Pulse Resp BP Pulse Ox O2 Del Method O2 Flow Rate 97.4 F L 84 18 143/54 H 94 Room Air 3 03/09/22 09:15 03/09/22 09:15 03/09/22 09:15 03/09/22 09:15 03/09/22 09:15 03/09/22 09:15 03/05/22 22:00 Oxygen Flow Rate (L/min) 3 Oxygen Delivery Method Room Air Weight: 238 lb 15.697 oz Body Mass Index (BMI) 43.7 Intake & Output: Intake and Output for Last 24 Hours 03/07/22 03/08/22 03/09/22 23:59 23:59 23:59 Intake Total 1100 / 1400 1300 / 1300 Output Total 1300 / 1300 800 / 1000 550 / 550 Balance -200 / 100 500 / 300 -550 / -550 Lab / Micro Data Result Diagrams: 03/09/22 05:40 03/09/22 05:40 Labs: Laboratory Results - last 24 hr 03/08/22 09:36: POC Glucose 227 H 03/08/22 14:30: POC Glucose 145 H 03/08/22 16:25: POC Glucose 206 H 03/08/22 18:55: POC Glucose 165 H 03/08/22 21:35: POC Glucose 102 03/09/22 05:40: WBC 8.2, RBC 4.41, Hgb 12.1, Hct 38.3, MCV 86.8, MCH 27.4, MCHC 31.6 L, RDW Std Deviation 47.8 H, RDW Coeff of Karolina 14.8 H, Plt Count 303, MPV 11.4, Immature Gran % (Auto) 0.500, Neut % (Auto) 58.7, Lymph % (Auto) 26.2, Appling % (Auto) 8.9, Eos % (Auto) 5.0, Baso % (Auto) 0.7, Absolute Neuts (auto) 4.8, Absolute Lymphs (auto) 2.15, Nucleated RBC % 0 03/09/22 05:40: Sodium 139, Potassium 4.2, Chloride 106, Carbon Dioxide 26.0, Anion Gap 7, BUN 31 H, Creatinine 0.98, Estim Creat Clear Calc 44.06, Est GFR (MDRD) Af Amer 73, Est GFR (MDRD) Non-Af 60, BUN/Creatinine Ratio 31.6 H, Glucose 133 H, Calcium 9.0 03/09/22 06:36: POC Glucose 129 H 03/09/22 09:11: POC Glucose 168 H Radiography Diagnostic Testing: Radiology Impression Venous Doppler Study 03/08/22 10:34 Interpretation Summary No evidence for acute deep venous thrombosis right lower extremity. Compression limitations as noted. Acute deep venous thrombosis left posterior tibial vein. Technical limitations with compression analysis and reliance upon flow as noted. Patent and compressible bilateral great saphenous veins Ordering Physician: Argelia Sosa Referring Physician: Agnes Velazquez M.D. Performed By: Alistair Hurley RVT Physical Exam Const alert, oriented x3 and no apparent distress HEENT head/scalp atraumatic, moist oral mucous membranes and oropharynx normal Head and Scalp: normocephalic Mouth: oral and palatal mucosa normal Eyes PERRL, EOMs intact bilaterally and conjunctivae normal Neck no lymphadenopathy and supple Resp normal respiratory effort, no retractions and no use of accessory muscles Cardio regular rate, regular rhythm, S1 normal heart sound, S2 normal heart sound and no murmurs GI normal to inspection, nondistended, normoactive bowel sounds, soft to palpation, non-tender and non-distended Extremity normal to inspection and no clubbing, cyanosis or edema Extremity Narrative: left knee in knee immobilizer; minimal tenderness in her LLE calf Neuro oriented x3, CN's II-XII intact bilaterally, moves all extremities and no focal motor deficits Sensorium / Orientation: awake and alert Motor Exam: strength 5/5 throughout Psych affect normal Assessment & Plan Assessment/Plan (1) Fall: (2) Patella fracture: PLAN: Plan #left tibial plateau fracture * due to mechanical fall * knee immobilizer in place * on PO tylenol, oxycodone and IV morphine prn for pain * orthopedic surgery on board * PT/OT consult * fall precautions * #LLE DVT * was complaining of pain in her left calf * duplex of lower extremities yesterday showed acute DVT of left posterior tibial vein * started on therapeutic dose of eliquis * #hypokalemia: resolved. #Debility due to mechanical fall: as above #Hypothyroidism: on synthroid #Hypertension: on chlorthalidone, losartan and amlodipine #TYpe 1 diabetes mellitus * on lantus 15 units daily. ISS. Accuchecks ACHS * #Hyperlipidemia:on statin DVT prophylaxis: lovenox Disposition: * awaiting placement. * Was initially denied SNF placement by her insurance company but the hospitalist did peer to peer with t physician today and SNF approved. * Awaiting discharge to SNF pending pre-CERT. Charges/Coding Visit Charges Inpatient E&M: 48159 Subs Hosp L2
[2022-03-09 13:23] VITALS: PULSE 80; RESP 18; O2SAT 93
[2022-03-09 13:25] LABS: Bedside Glucose 94 mg/dL (74-106)
--- NOTE | 2022-03-09 14:47 | DS.PCM_ITS ---
Providers Date of Admission: 03/04/22 Date of Discharge: 03/09/22 Primary Care Physician: Dr. Agnes Velazquez, DO Consultations 03/05/22 15:47 Consult: Orthopedics Routine Consulting Provider: Shayne Hobson Reason for Consult: left tibial plateau fracture EMERGENT Consult: No MD Notified: Yes Date Notified: 03/05/22 Time Notified: 15:47 Method of Notification: Verbal Reason For Visit: LEFT PLATEAU TIBIAL FRACTURE Diagnosis Discharge Diagnosis (1) Fall: Status: Acute Code(s): W19.XXXA - Unspecified fall, initial encounter (2) Patella fracture: Status: Acute Code(s): S82.009A - Unspecified fracture of unspecified patella, initial encounter for closed fracture (3) Fracture of lateral condyle of left tibia: Status: Acute Code(s): S82.122A - Displaced fracture of lateral condyle of left tibia, initial encounter for closed fracture Plan #left tibial plateau fracture * due to mechanical fall * knee immobilizer in place * on PO tylenol, oxycodone and IV morphine prn for pain * orthopedic surgery on board * PT/OT consult * fall precautions * #LLE DVT * was complaining of pain in her left calf * duplex of lower extremities yesterday showed acute DVT of left posterior tibial vein * started on therapeutic dose of eliquis * #hypokalemia: resolved. #Debility due to mechanical fall: as above #Hypothyroidism: on synthroid #Hypertension: on chlorthalidone, losartan and amlodipine #TYpe 1 diabetes mellitus * on lantus 15 units daily. ISS. Accuchecks ACHS * #Hyperlipidemia:on statin DVT prophylaxis: lovenox Disposition: * awaiting placement. * Was initially denied SNF placement by her insurance company but the hospitalist did peer to peer with [facility] physician today and SNF approved. * Awaiting discharge to SNF pending pre-CERT. Medications at Discharge Home Medications fluticasone 500 mcg-salmeterol 50 mcg/dose blistr powdr for inhalation (Advair Diskus) 1 puff IH DAILY 04/21/18 levothyroxine 50 mcg tablet (Synthroid) 75 mcg PO DAILY 04/21/18 potassium chloride 20 mEq tablet,extended release(part/cryst) (Klor-Con M) 20 mcg PO QHS 04/21/18 cholecalciferol (vitamin D3) 50 mcg (2,000 unit) capsule 2,000 unit PO QHS 09/25/18 montelukast 5 mg chewable tablet 5 mg PO DAILY 09/25/18 aspirin 81 mg chewable tablet 81 mg PO DAILY@0800 09/28/18 simvastatin 20 mg tablet 20 mg PO QHS #30 tabs 09/28/18 Saccharomyces boulardii 250 mg capsule (Daily Probiotic (S. boulardii)) 250 mg PO QHS 01/25/21 albuterol sulfate 90 mcg/actuation aerosol inhaler (ProAir HFA) 1 inh inhalation Q6H PRN PRN SOB 01/25/21 amlodipine 5 mg tablet (Norvasc) 5 mg PO DAILY blood pressure 01/25/21 chlorthalidone 25 mg tablet 25 mg PO DAILY 01/25/21 losartan 100 mg tablet 100 mg PO QHS 01/25/21 triamcinolone acetonide 55 mcg nasal spray aerosol (Nasacort) 1 spray intranasal DAILY PRN Congestion 01/25/21 Centrum Silver Women 1 tab DAILY 03/04/22 omeprazole 40 mg capsule,delayed release 20 mg PO QHS 03/04/22 insulin aspart U-100 100 unit/mL (3 mL) subcutaneous pen (Novolog Flexpen U-100 Insulin aspart) 12 unit subcut BREAKFAST dm 03/06/22 insulin aspart U-100 100 unit/mL (3 mL) subcutaneous pen (Novolog Flexpen U-100 Insulin aspart) 12 unit subcut LUNCH DM 03/06/22 insulin aspart U-100 100 unit/mL (3 mL) subcutaneous pen (Novolog Flexpen U-100 Insulin aspart) 14 unit subcut DINNER DM 03/06/22 insulin glargine 100 unit/mL (3 mL) subcutaneous pen (Basaglar KwikPen U-100 Insulin) 15 unit subcut QHS 03/06/22 apixaban 5 mg (74 tabs) tablets in a dose pack (Eliquis DVT-PE Treat 30D Start) 5 mg PO BID #74 tabs 03/09/22 oxycodone 5 mg tablet 5 mg PO Q4H PRN PRN Pain Score 4-10 3 days #18 tabs 03/09/22 Hospital Course Operations None Procedures None Summary of Care Provided Minutes Spent on Discharge: 50 Hospital Course: Patient is a 66-year-old female with a past medical history as outlined was admitted through the ED on 03/04/2022 with a complaint of mechanical fall after she slipped in water in her kitchen and fell. She twisted her ankle and had more significant pain in her left ankle. She was unable to weight-bear on her left ankle. Imaging done of her knee showed a left tibial plateau fracture. She was admitted to be managed for debility due to left tibial plateau fracture. Orthopedic surgery was consulted and he was placed in a knee immobilizer. Orthopedic surgery deemed management as conservative and for patient to have a knee immobilizer in place to help facilitate healing. Hospital course was complicated by left calf pain and duplex done showed acute DVT in the left popliteal vein. She was started on Eliquis. Patient was called as needing acute rehab and was discharged to a assisted facility on 03/09/2022. She is follow-up with her primary care doctor and orthopedic surgery within 1 to 2 weeks. Patient was seen and examined prior to discharge. She felt well and had no active complaints. Review of symptoms otherwise negative. Labs and vitals reviewed. Home medication reviewed and reconciled. Physical Exam Const alert, oriented x3 and no apparent distress General Appearance: cooperative and comfortable Orientation / Consciousness: awake Exam Limitations: no limitations HEENT normocephalic, head/scalp atraumatic, hearing grossly normal bilaterally, moist oral mucous membranes and oropharynx normal Mouth: oral and palatal mucosa normal Eyes PERRL, EOMs intact bilaterally and conjunctivae normal Neck no lymphadenopathy and supple Resp normal respiratory effort, no retractions and no use of accessory muscles Cardio regular rate, regular rhythm, S1 normal heart sound, S2 normal heart sound and no murmurs GI normal to inspection, nondistended, normoactive bowel sounds, soft to palpation, non-tender and non-distended Extremity normal to inspection and no clubbing, cyanosis or edema Extremity Narrative: left knee in knee immobilizer; minimal tenderness in her LLE calf Neuro oriented x3, CN's II-XII intact bilaterally, moves all extremities and no focal motor deficits Sensorium / Orientation: awake and alert Motor Exam: strength 5/5 throughout Psych affect normal Weight / BMI Weight Weight: 238 lb 15.697 oz Body Mass Index (BMI) 43.7 ABG / Lab / Microbiology Data Result Diagrams: 03/09/22 05:40 03/09/22 05:40 Laboratory: Laboratory Results - last 24 hr 03/08/22 14:30: POC Glucose 145 H 03/08/22 16:25: POC Glucose 206 H 03/08/22 18:55: POC Glucose 165 H 03/08/22 21:35: POC Glucose 102 03/09/22 05:40: WBC 8.2, RBC 4.41, Hgb 12.1, Hct 38.3, MCV 86.8, MCH 27.4, MCHC 31.6 L, RDW Std Deviation 47.8 H, RDW Coeff of Karolina 14.8 H, Plt Count 303, MPV 11.4, Immature Gran % (Auto) 0.500, Neut % (Auto) 58.7, Lymph % (Auto) 26.2, [place] % (Auto) 8.9, Eos % (Auto) 5.0, Baso % (Auto) 0.7, Absolute Neuts (auto) 4.8, Absolute Lymphs (auto) 2.15, Nucleated RBC % 0 03/09/22 05:40: Sodium 139, Potassium 4.2, Chloride 106, Carbon Dioxide 26.0, Anion Gap 7, BUN 31 H, Creatinine 0.98, Estim Creat Clear Calc 44.06, Est GFR (MDRD) Af Amer 73, Est GFR (MDRD) Non-Af 60, BUN/Creatinine Ratio 31.6 H, Glucose 133 H, Calcium 9.0 03/09/22 06:36: POC Glucose 129 H 03/09/22 09:11: POC Glucose 168 H 03/09/22 13:06: POC Glucose 94 D/C Instructions Discharge Diet: Low fat / Low cholesterol Weight Bearing Status: No weight bearing (on affected left lower extremity) Call your doctor if you observe: Fever of 101 or Higher, Dizziness, Swelling in the ankles, Chest pain, Increased palpitations (irregular heartbeat) and Uncontrolled pain Meaningful Use Info Meaningful Use Diagnoses (Choose all that apply): None applicable Discharge Plan Admission Admit Date/Time: 03/04/22 20:55 Primary Reason for Your Visit: acute left tibial plateau fracutre, LLE DVT Attending Provider: Argelia Sosa Primary Care Provider: Agnes Velazquez Consulting Providers: Emanuel Foreman ; Shayen Hobson Instructions Patient Instructions: ED Fracture, Knee Discharge Orders/Prescriptions Prescriptions: New oxycodone 5 mg Tablet 5 mg PO Q4H PRN PRN (Reason: Pain Score 4-10) 3 Days Qty: 18 0RF Eliquis DVT-PE Treat 30D Start 5 mg (74 tabs) tablets,dose pack 5 mg PO BID Qty: 74 0RF Rx Instructions: take 10mg (2 tabs) twice daily till March 14 2022, then continue from March 15 2022 with 5mg (one tab) twice daily Continued amlodipine [Norvasc] 5 mg tablet 5 mg PO DAILY losartan 100 mg tablet 100 mg PO QHS Saccharomyces boulardii [Daily Probiotic (S. boulardii)] 250 mg capsule 250 mg PO QHS chlorthalidone 25 mg tablet 25 mg PO DAILY albuterol sulfate [ProAir HFA] 90 mcg/actuation HFA aerosol inhaler 1 inh inhalation Q6H PRN PRN (Reason: SOB) triamcinolone acetonide [Nasacort] 55 mcg aerosol,spray 1 spray intranasal DAILY PRN (Reason: Congestion) Rx Instructions: administer into each nostril potassium chloride [Klor-Con M20] 20 tablet,ER particles/crystals 20 mcg PO QHS levothyroxine [Synthroid] 50 tablet 75 mcg PO DAILY fluticasone propion-salmeterol [Advair Diskus] 0 blister with device 1 puff IH DAILY cholecalciferol (vitamin D3) 2,000 UNIT capsule 2,000 unit PO QHS montelukast 5 MG tablet,chewable 5 mg PO DAILY aspirin 81 MG tablet,chewable 81 mg PO DAILY@0800 0RF simvastatin 20 MG tablet 20 mg PO QHS Qty: 30 0RF Centrum Silver Women 1 tab DAILY omeprazole 40 mg capsule,delayed release(DR/EC) 20 mg PO QHS insulin aspart U-100 [Novolog Flexpen U-100 Insulin] 100 unit/mL (3 mL) insulin pen 14 unit SUBCUT DINNER Rx Instructions: 12 units breakfast, 12 units at lunch, 14units at dinner insulin glargine [Basaglar KwikPen U-100 Insulin] 100 unit/mL (3 mL) insulin pen 15 unit SUBCUT QHS Rx Instructions: 15units at bedtime insulin aspart U-100 [Novolog Flexpen U-100 Insulin] 100 unit/mL (3 mL) insulin pen 12 unit SUBCUT LUNCH insulin aspart U-100 [Novolog Flexpen U-100 Insulin] 100 unit/mL (3 mL) insulin pen 12 unit SUBCUT BREAKFAST Referrals / Follow Up: Agnes Velazquez DO [Primary Care Provider] - Within 2 Weeks Disposition Disposition (needs filled in before D/C Order can be placed): [facility] Charges/Coding Visit Charges Inpatient E&M: 04298 Disch Hosp
--- NOTE | 2022-03-09 14:56 | TREXTCAR_ITS ---
Diet Diet Order/Speech Therapy: 03/04/22 22:50 Diet: Cardiac - Heart Healthy Food consistency:: Regular Liquid Consistency:: Regular/Thin Routine Orders/Code Status Enema Type: Fleetz Enema Frequency: Daily PRN Suppository Frequency: Daily PRN O2 Frequency: PRN Keep PO Greater than or Equal to (%): 90 Therapies Weight Bearing: Weight bearing as tolerated Problem/Diagnosis (1) Fall: Status: Acute Code(s): W19.XXXA - Unspecified fall, initial encounter (2) Patella fracture: Status: Acute Code(s): S82.009A - Unspecified fracture of unspecified patella, initial encounter for closed fracture (3) Fracture of lateral condyle of left tibia: Status: Acute Code(s): S82.122A - Displaced fracture of lateral condyle of left tibia, initial encounter for closed fracture Plan #left tibial plateau fracture * due to mechanical fall * knee immobilizer in place * on PO tylenol, oxycodone and IV morphine prn for pain * orthopedic surgery on board * PT/OT consult * fall precautions * #LLE DVT * was complaining of pain in her left calf * duplex of lower extremities yesterday showed acute DVT of left posterior tibial vein * started on therapeutic dose of eliquis * #hypokalemia: resolved. #Debility due to mechanical fall: as above #Hypothyroidism: on synthroid #Hypertension: on chlorthalidone, losartan and amlodipine #TYpe 1 diabetes mellitus * on lantus 15 units daily. ISS. Accuchecks ACHS * #Hyperlipidemia:on statin DVT prophylaxis: lovenox Disposition: * awaiting placement. * Was initially denied SNF placement by her insurance company but the hospitalist did peer to peer with [facility] physician today and SNF approved. * Awaiting discharge to SNF pending pre-CERT. Allergies/Procedures Done in Hospital Allergies Penicillins [PCN] Allergy (Verified 03/04/22 16:38) Anaphylaxis Type of Care/Length of Stay Estimated LOS: Convalescent Care Less Than 30 days Type of Care Needed: Skilled Rehab Potential: Fair Prognosis: Fair Additional Orders/Day of Discharge Day of Discharge: 03/09/22 Discharge Plan Admission Admit Date/Time: 03/04/22 20:55 Primary Reason for Your Visit: acute left tibial plateau fracutre, LLE DVT Attending Provider: Argelia Sosa Primary Care Provider: Agnes Velazquez Consulting Providers: Emanuel Foreman ; Shayne Hobson Instructions Patient Instructions: ED Fracture, Knee Discharge Orders/Prescriptions Prescriptions: New oxycodone 5 mg Tablet 5 mg PO Q4H PRN PRN (Reason: Pain Score 4-10) 3 Days Qty: 18 0RF Eliquis DVT-PE Treat 30D Start 5 mg (74 tabs) tablets,dose pack 5 mg PO BID Qty: 74 0RF Rx Instructions: take 10mg (2 tabs) twice daily till March 14 2022, then continue from March 15 2022 with 5mg (one tab) twice daily Continued amlodipine [Norvasc] 5 mg tablet 5 mg PO DAILY losartan 100 mg tablet 100 mg PO QHS Saccharomyces boulardii [Daily Probiotic (S. boulardii)] 250 mg capsule 250 mg PO QHS chlorthalidone 25 mg tablet 25 mg PO DAILY albuterol sulfate [ProAir HFA] 90 mcg/actuation HFA aerosol inhaler 1 inh inhalation Q6H PRN PRN (Reason: SOB) triamcinolone acetonide [Nasacort] 55 mcg aerosol,spray 1 spray intranasal DAILY PRN (Reason: Congestion) Rx Instructions: administer into each nostril potassium chloride [Klor-Con M20] 20 tablet,ER particles/crystals 20 mcg PO QHS levothyroxine [Synthroid] 50 tablet 75 mcg PO DAILY fluticasone propion-salmeterol [Advair Diskus] 0 blister with device 1 puff IH DAILY cholecalciferol (vitamin D3) 2,000 UNIT capsule 2,000 unit PO QHS montelukast 5 MG tablet,chewable 5 mg PO DAILY aspirin 81 MG tablet,chewable 81 mg PO DAILY@0800 0RF simvastatin 20 MG tablet 20 mg PO QHS Qty: 30 0RF Centrum Silver Women 1 tab DAILY omeprazole 40 mg capsule,delayed release(DR/EC) 20 mg PO QHS insulin aspart U-100 [Novolog Flexpen U-100 Insulin] 100 unit/mL (3 mL) insulin pen 14 unit SUBCUT DINNER Rx Instructions: 12 units breakfast, 12 units at lunch, 14units at dinner insulin glargine [Basaglar KwikPen U-100 Insulin] 100 unit/mL (3 mL) insulin pen 15 unit SUBCUT QHS Rx Instructions: 15units at bedtime insulin aspart U-100 [Novolog Flexpen U-100 Insulin] 100 unit/mL (3 mL) insulin pen 12 unit SUBCUT LUNCH insulin aspart U-100 [Novolog Flexpen U-100 Insulin] 100 unit/mL (3 mL) insulin pen 12 unit SUBCUT BREAKFAST Referrals / Follow Up: Agnes Velazquez DO [Primary Care Provider] - Within 2 Weeks Disposition Disposition (needs filled in before D/C Order can be placed): [facility]
--- NOTE | 2022-03-09 15:20 | CASEMGMT ---
Social Work? BURKE notified pt and pt daughter of discharge to [facility] today. BURKE completed PASRR form in [employer]. Set up wheelchair transportation [facility] for 5:00pm. BURKE faxed all discharge orders to [facility] via [facility]. called Vida at SNF to notified of discharge time. BURKE notified pt nurse of transport time. BURKE made copies of discharge orders and placed on pt chart. Sent original orders in envelope with pt upon discharge. ?? Disposition: [facility], skilled, convalescent, level of care? IRENE Ignacio
[2022-03-09 15:25] LABS: Bedside Glucose 135 mg/dL (74-106)
[2022-03-09 15:58] VITALS: BP 127/63; PULSE 97; RESP 18; TEMP 36.6; O2SAT 97
--- NOTE | 2022-03-09 17:39 | NURSING ---
Report called to Lady at [facility].
== END 2022-03-09 17:35 | disposition skilled nursing facility (03) ==
LOC: ED 21:20 → MS3 21:52
PROVIDERS: Admitting Provider Hospitalist; Emergency Provider Student in an Organized Health Care Education/Training Program; PCP Internal Medicine; Visit Provider Student in an Organized Health Care Education/Training Program
DX: S82.122A Displaced fracture of lateral condyle of left tibia, initial encounter for closed fracture (principal); I82.432 Acute embolism and thrombosis of left popliteal vein; E66.01 Morbid (severe) obesity due to excess calories; Z68.41 Body mass index [BMI] 40.0-44.9, adult; Z79.4 Long term (current) use of insulin; E10.9 Type 1 diabetes mellitus without complications; E87.6 Hypokalemia; E03.9 Hypothyroidism, unspecified; R53.81 Other malaise; E78.00 Pure hypercholesterolemia, unspecified; Z79.51 Long term (current) use of inhaled steroids; Z79.82 Long term (current) use of aspirin; I10 Essential (primary) hypertension; Z79.899 Other long term (current) drug therapy; Z79.890 Hormone replacement therapy; W01.0XXA Fall on same level from slipping, tripping and stumbling without subsequent striking against object, initial encounter; Y93.9 Activity, unspecified; Y92.000 Kitchen of unspecified non-institutional (private) residence as the place of occurrence of the external cause
CPT/HCPCS: 36415; 73564; 73700; 80048; 82306; 82962; 85025; 87426; 93970; 94640; 96372; 96374; 96375; 96376; 97110; 97116; 97162; 97166; 97530; 97535; 99218; 99251; 99285; A4216; G0378; G0463; J2405

== ENCOUNTER 2022-04-12 11:19 | Outpatient (RCR) | payer OTHER, SELFPAY ==
[2022-04-12 11:48] LABS: Magnesium 1.7 mg/dL (1.6-2.6); Potassium 3.2 mmol/L (3.5-5.1)
== END 2022-05-10 23:59 ==
LOC: HHLAB 11:19
PROVIDERS: PCP Internal Medicine; Visit Provider Internal Medicine
DX: S82.142D Displaced bicondylar fracture of left tibia, subsequent encounter for closed fracture with routine healing (principal); I82.402 Acute embolism and thrombosis of unspecified deep veins of left lower extremity; M17.0 Bilateral primary osteoarthritis of knee
CPT/HCPCS: 83735; 84132

== ENCOUNTER → 2022-04-22 | Outpatient (CLI) | payer OTHER, SELFPAY ==
[2022-04-22 11:27] LABS: Magnesium 1.5 mg/dL (1.6-2.6); Potassium 3.2 mmol/L (3.5-5.1)
== END | disposition home or self-care (01) ==
LOC: LABSPEC 11:10 → HHLAB 11:12
PROVIDERS: PCP Internal Medicine; Referring Provider Internal Medicine; Visit Provider Internal Medicine
DX: S82.142D Displaced bicondylar fracture of left tibia, subsequent encounter for closed fracture with routine healing (principal); I82.402 Acute embolism and thrombosis of unspecified deep veins of left lower extremity
CPT/HCPCS: 83735; 84132

== ENCOUNTER → 2022-06-03 | Outpatient (CLI) | payer OTHER, SELFPAY ==
--- NOTE | 2022-06-03 13:41 | VDLE_ITS ---
Reason For Study: DVT Procedure LEFT This is a venous duplex using B-mode, color GSV is normal. flow and spectral Doppler. CFV is compressible, spontaneous, phasic, Exam performed in department. competent, and demonstrates normal A preliminary report was called and/or faxed augmentation. to [facility]. FV is compressible, spontaneous, phasic, competent and demonstrates normal augmentation. POP V is compressible, spontaneous, phasic, competent and demonstrates normal augmentation. T/P Trunk is compressible. PTV is compressible. LT PerV is compressible. VL/Venous Duplex US, Unilateral Interpretation Summary There is no evidence of left lower extremity deep vein thrombosis. Left great s aphenous vein appears patent and compressible segmentally. Ordering Physician: Agnes Velazquez Referring Physician: Agnes Velazquez Performed By: Vandana Sargent RVT
== END | disposition home or self-care (01) ==
LOC: CVS 13:39
PROVIDERS: PCP Internal Medicine; Referring Provider Internal Medicine; Visit Provider Internal Medicine
DX: I82.409 Acute embolism and thrombosis of unspecified deep veins of unspecified lower extremity (principal)
CPT/HCPCS: 93971

== ENCOUNTER → 2022-06-16 | Outpatient (CLI) | payer OTHER, SELFPAY ==
--- NOTE | 2022-06-16 08:04 | US_ITS ---
STUDY: ABDOMINAL ULTRASOUND - RIGHT UPPER QUADRANT REASON FOR VISIT: Female, 66 years old Fatty liver TECHNIQUE: Ultrasound evaluation of the right upper quadrant was performed with real-time and static orozco-scale imaging. TECHNICAL QUALITY: Adequate. COMPARISON: None. FINDINGS: Liver: The liver is mildly enlarged and measures 17.3 cm. There is increased echogenicity consistent with fatty infiltration. The bile ducts are within normal limits. There is hepatic color flow. The direction of portal flow is hepatopetal. There is no demonstrated mass lesion. Gallbladder: Normal distended gallbladder. The gallbladder wall is thickened and measures 6 mm. There is a negative sonographic Howard''s sign. There is no pericholecystic fluid. There are no gallstones. Common Bile Duct (C.B.D.): The common bile duct measures 5 mm. Pancreas: Normal size of the head, body and tail of the pancreas. There is normal echogenicity of the pancreas. There is no demonstrated pancreatic mass or cyst. Right Kidney: Normal size of the right kidney. The right kidney measures 11 cm x 5.7 cm x 5.1 cm. Normal renal cortex. The right cortex measures 1.4 cm. There is no demonstrated renal mass or cyst. There is no right hydronephrosis. US/Abdomen Limited IMPRESSION: Mild hepatomegaly and fatty infiltration of the liver. Diffuse thickening of the gallbladder wall measuring 6 mm. Electronically Signed: Jose Miguel Prado MD at 15:21 EST ,
--- NOTE | 2022-06-16 08:04 | US_ITS ---
STUDY: ABDOMINAL ULTRASOUND - ELASTOGRAPHY REASON FOR VISIT: Female, 66 years old. Fatty infiltration of the liver. TECHNIQUE: Liver stiffness measurements were obtained on a MaxxAthlete RS 85 ultrasound machine using a CA 1-7 probe following the SRU guidelines. 3 measurements were obtained using a 2-D-SWE method. TheIQR/M was 12% suggesting a quality data set. TECHNICAL QUALITY: Adequate. COMPARISON: Comparison is made with prior study done earlier in the day. FINDINGS: Liver: Fatty infiltration of the liver. Median liver stiffness measured 11.7 kPa. US/Elastography Parenchyma/Organ IMPRESSION: Liver stiffness measures 11.7 kPa compatible with F2-F3 (Mild to moderate liver fibrosis) Metavir score. Electronically Signed: Jose Miguel Prado MD at 15:22 EST ,
== END | disposition home or self-care (01) ==
LOC: US 08:01
PROVIDERS: PCP Internal Medicine; Visit Provider Internal Medicine
DX: K76.0 Fatty (change of) liver, not elsewhere classified (principal)
CPT/HCPCS: 76705; 76981

== ENCOUNTER 2022-07-03 20:33 | Emergency (ER) | payer OTHER, SELFPAY ==
[2022-07-03 20:34] VITALS: BP 136/97; PULSE 79; RESP 18; TEMP 36.6; O2SAT 95; BMI 45.7
[2022-07-03 21:03] LABS: Absolute Lymphocyte Count 2.01 X10^3/uL (0.83-4.51); Absolute Neutrophil Count 5.5 X10^3/uL (2.0-7.7); Basophil# 0.04 X10^3/uL; Basophil% 0.5 % (0-1); Eosinophil# 0.15 X10^3/uL; Eosinophils% 1.8 % (0-5); Hematocrit 39.7 % (37-47); Hemoglobin 12.4 g/dL (12.0-15.0); Lymphocyte # 2.01 X10^3/ul (0.83-4.51); Lymphocyte % 24.2 % (19-41); Mean Corp Hgb Conc 31.2 g/dL (32-36); Mean Corpuscular Hgb 27.1 pg (27.0-32.0); Mean Corpuscular Volume 86.9 fL (81-99); Monocyte# 0.59 X10^3/uL; Monocyte% 7.1 % (0-10); NRBC Flagged by Analyzer 0 % (0-5); Neutrophil # 5.51 X10^3/uL (2.7-7.7); Neutrophil % 66.2 % (47-70); Platelet Count 314 K/mm3 (150-450); RBC Distribution Width CV 16.6 % (11.6-14.6); RBC Distribution Width SD 52.9 fl (35.1-43.9); Red Blood Count 4.57 M/mm3 (4.2-5.4); White Blood Count 8.3 K/mm3 (4.4-11.0)
[2022-07-03 21:15] LABS: Bedside Glucose 168 mg/dL (74-106)
--- NOTE | 2022-07-03 21:17 | ED.VIS.GI ---
HPI HPI - GI History of Present Illness Chief Complaint: GI Bleed Informant: patient Abdominal Pain/Flank Pain Onset: Hours (several) Context: Gradual Onset Location: RUQ and LUQ Current Severity: Gone Maximum Severity: Mild Nausea/Vomiting/Emesis GI Symptom: Positive for Nausea and Vomiting Onset: Today Quality: Positive for Hematemesis Diarrhea/Melena/Hematochezia GI Symptom: Negative for Diarrhea, Melena or Hematochezia Narrative Narrative: Patient states she was feeling well today, she ate a salad and afterwards, she started having some discomfort in her abdomen and nausea, followed by some vomiting, she states this is happened in the past in relation to her hiatal hernia according to her, after she has eaten salads. She states she vomited multiple times, feeling a little better afterwards, she had no blood in the emesis at that time. She took some Mylanta, but then after a little while she started having a another couple episodes of vomiting, that had some amount of blood in them. She was not vomiting just blood. She states the blood that she had vomited was dark. She has had normal bowel movements lately, the last bowel movement was today. She states that she was having some bilateral upper quadrant abdominal discomfort but that is gone now, she states that her doctor had done some screening tests recently that showed that her gallbladder wall was abnormal so she had an ultrasound and is scheduled to see surgery but they did not have an appointment until August, she states they did not see any stones to her knowledge but she was advised to try to avoid fats which she has been doing. She states she is on omeprazole for her hiatal hernia, but accidentally for the past week she did not put it in her pill counter so she has been without it. She is on Eliquis since February for a DVT in her leg, she states she has had an ultrasound of her leg in the past month that showed that it was not resolved but her doctor wanted her to stay on it for 4-6 months. [facility] Medical History Anemia Anxiety Anxiety and depression Arthritis Asthma Asthma Back pain Bilateral primary osteoarthritis of knee Blackout Cardiology follow-up encounter Chest pain Dehydration Diabetes mellitus type 1 Dietary restriction Easy bruising Elevated C-reactive protein (CRP) Fatty liver Fracture of lateral condyle of left tibia Heartburn Hepatomegaly Hiatal hernia High cholesterol History of benign breast biopsy History of edema History of hiatal hernia Hyperlipidemia Hypertension Hypertension Hypomagnesemia Hypothyroidism Insulin dependent diabetes mellitus Iron deficiency Leg cramps Migraine headache Morbid obesity Non-smoker Patella fracture Restless legs Shortness of breath on exertion Syncope Thyroid disease Tubular adenoma Wears glasses Home Medications fluticasone 500 mcg-salmeterol 50 mcg/dose blistr powdr for inhalation (Advair Diskus) 1 puff IH DAILY 04/21/18 [History Last Taken 09/25/18] levothyroxine 50 mcg tablet (Synthroid) 75 mcg PO DAILY 04/21/18 [History Last Taken 04/21/21 06:00] potassium chloride 20 mEq tablet,extended release(part/cryst) (Klor-Con M) 20 mcg PO QHS 04/21/18 [History Last Taken 09/24/18] cholecalciferol (vitamin D3) 50 mcg (2,000 unit) capsule 2,000 unit PO QHS 09/25/18 [History Last Taken 09/25/18] montelukast 5 mg chewable tablet 5 mg PO DAILY 09/25/18 [History Last Taken 09/23/18] simvastatin 20 mg tablet 20 mg PO QHS #30 tabs 09/28/18 [Rx Last Taken 03/03/22] Saccharomyces boulardii 250 mg capsule (Daily Probiotic (S. boulardii)) 250 mg PO QHS 01/25/21 [History Last Taken Unknown] albuterol sulfate 90 mcg/actuation aerosol inhaler (ProAir HFA) 1 inh inhalation Q6H PRN PRN SOB 01/25/21 [History Last Taken 04/21/21 06:00] amlodipine 5 mg tablet (Norvasc) 5 mg PO DAILY blood pressure 01/25/21 [History Last Taken 04/21/21 06:00] chlorthalidone 25 mg tablet 25 mg PO DAILY 01/25/21 [History Last Taken Unknown] losartan 100 mg tablet 100 mg PO QHS 01/25/21 [History Last Taken Unknown] triamcinolone acetonide 55 mcg nasal spray aerosol (Nasacort) 1 spray intranasal DAILY PRN Congestion 01/25/21 [History Last Taken Unknown] Centrum Silver Women 1 tab DAILY 03/04/22 [History Last Taken Unknown] insulin aspart U-100 100 unit/mL (3 mL) subcutaneous pen (Novolog FlexPen U-100 Insulin aspart) 12 unit subcut BREAKFAST dm 03/06/22 [History Last Taken Unknown] insulin aspart U-100 100 unit/mL (3 mL) subcutaneous pen (Novolog FlexPen U-100 Insulin aspart) 12 unit subcut LUNCH DM 03/06/22 [History Last Taken Unknown] insulin aspart U-100 100 unit/mL (3 mL) subcutaneous pen (Novolog FlexPen U-100 Insulin aspart) 14 unit subcut DINNER DM 03/06/22 [History Last Taken Unknown] insulin glargine 100 unit/mL (3 mL) subcutaneous pen (Basaglar KwikPen U-100 Insulin) 15 unit subcut QHS 03/06/22 [History Last Taken Unknown] apixaban 5 mg (74 tabs) tablets in a dose pack (Triogen Group DVT-PE Treat 30D Start) 5 mg PO BID #74 tabs 03/09/22 [Rx Last Taken Unknown] oxycodone 5 mg tablet 5 mg PO Q4H PRN PRN Pain Score 4-10 3 days #18 tabs 03/09/22 [Rx Last Taken Unknown] lorazepam 0.5 mg tablet 0.5 mg PO DAILY PRN 06/24/22 [History Last Taken Unknown] ondansetron 4 mg disintegrating tablet 8 mg PO Q8H PRN PRN Nausea #14 tabs 07/04/22 [Rx Last Taken Unknown] pantoprazole 40 mg tablet,delayed release 40 mg PO DAILY 3 months #97 tabs 07/04/22 [Rx Last Taken Unknown] Allergy/AdvReac Type Severity Reaction Status Date / Time Penicillins [PCN] Allergy Anaphylaxis Verified 06/24/22 10:45 oxycodone [From OxyIR] AdvReac Nausea Verified 06/24/22 10:45 Family History Mother CAD (coronary artery disease) Hypertension Father Diabetes Heart disease Sister CVA (cerebral vascular accident) Diabetes Brother Diabetes Surgical History H/O section History of cardiac catheterization Hx of colonoscopy S/P tonsillectomy and adenoidectomy S/P tubal ligation Social History (Updated 07/03/22 @ 21:[address] Amita Tsai MD) household members: none Smoking Status: Never smoker alcohol intake: current alcohol intake frequency: holidays/special occasions only substance use type: does not use ROS ROS ED Constitutional Constitutional ED: Denies chills or fever(s) Eyes Eyes: Denies change in vision or diplopia ENT ENT ED: Denies rhinorrhea or sore throat Cardiovascular Cardiovascular: Denies chest pain or palpitations Respiratory/Chest Respiratory/Chest: Denies cough or dyspnea Gastrointestinal Gastrointestinal: Reports abdominal pain, hematemesis, nausea and vomiting; Denies diarrhea, hematochezia or melena Genitourinary Genitourinary ED: Denies dysuria or hematuria Musculoskeletal Musculoskeletal: Denies back pain or neck pain Integumentary Denies abscess or rash Neurologic Neurologic: Denies headache(s), paresthesias or weakness Psychiatric Psychiatric: Denies anxiety or suicidal thoughts EXAM Physical Exam Const Vital Signs: 07/03/22 20:34 07/04/22 00:30 Temperature 97.8 F Temperature Source Temporal Pulse Rate 79 63 Respiratory Rate 18 18 Blood Pressure 136/97 H 116/69 Blood Pressure Mean 110 Pulse Ox 95 97 Oxygen Delivery Method Room Air Positive well nourished and well developed General Appearance ED: well developed and NAD HEENT Reports moist mucous membranes normocephalic and atraumatic Eyes PERRL and EOMs intact bilaterally Neck full ROM and supple Resp normal respiratory effort and clear to auscultation bilaterally Cardio regular rate, regular rhythm and no murmurs Rate: Negative for tachycardic GI non-tender and non-distended Auscultation: normoactive bowel sounds Palpation: soft Back/Spine no CVA tenderness General Back: other FROM Extremity normal to inspection General Extremety ED: Negative for edema, pulses abnormal or tenderness General Extremity: Negative for edema or pulses abnormal Neuro oriented x3, CN's II-XII intact bilaterally and no sensory deficits noted Sensorium / Orientation: awake and alert Motor Exam: strength 5/5 throughout Skin no rashes or lesions noted and no wounds MDM MDM MDM Narrative Medical decision making narrative: Patient was given IV fluids, Zofran, and IV Protonix. Labs were obtained and noted. She felt much better afterwards, she states she had a little bit of heartburn but declined an offer for medication for that. Vital signs are normal. Labs do not suggest hemodynamically significant upper GI bleeding. At this point I think it is reasonable to treat her as an outpatient, without needing to admit her necessarily. I suspect possible Jeannine-Mcclure tear, gastritis, esophagitis all in the differential, less likely an ulcer since she had no symptoms prior to all of this. I will prescribe her PPI, she wants a 90-day supply since she is on it anyway which is fine, we will have her dose it twice daily for the first week, and prescribe her some nausea medicine, I recommend that she discontinue her anticoagulant under the context for the next 5 days, and if she is doing okay without any hematemesis or melena, she may restart it and see how things go. The last dose was this morning, she usually takes it twice daily and did not take it tonight yet, so she will hold that and be discharged home. All questions answered at the bedside she is comfortable with that plan. History & Record Review Additional record(s) reviewed:: Prior outpatient record (Gallbladder ultrasound, no stones. Liver elastography: Mild to moderate liver fibrosis) Lab Data Attestation: I reviewed the patient's lab results. Labs: Laboratory Results - last 24 hr 07/03/22 07/03/22 07/03/22 20:47 20:54 20:54 WBC 8.3 RBC 4.57 Hgb 12.4 Hct 39.7 MCV 86.9 MCH 27.1 MCHC 31.2 L RDW Std Deviation 52.9 H RDW Coeff of Karolina 16.6 H Plt Count 314 MPV 11.0 Immature Gran % (Auto) 0.200 Neut % (Auto) 66.2 Lymph % (Auto) 24.2 [place] % (Auto) 7.1 Eos % (Auto) 1.8 Baso % (Auto) 0.5 Absolute Neuts (auto) 5.5 Absolute Lymphs (auto) 2.01 Nucleated RBC % 0 PT INR Sodium 143 Potassium 3.6 Chloride 107 Carbon Dioxide 31.0 Anion Gap 5 BUN 19 H Creatinine 1.04 H Estim Creat Clear Calc 39.61 Est GFR (MDRD) Af Amer 68 Est GFR (MDRD) Non-Af 56 L BUN/Creatinine Ratio 18.3 Glucose 175 H Calcium 9.1 Total Bilirubin 0.30 AST 17 ALT 17 Alkaline Phosphatase 89 Total Protein 6.8 Albumin 3.2 Globulin 3.6 Albumin/Globulin Ratio 0.9 Lipase POC Glucose 168 H 07/03/22 07/03/22 20:54 20:54 WBC RBC Hgb Hct MCV MCH MCHC RDW Std Deviation RDW Coeff of Karolina Plt Count MPV Immature Gran % (Auto) Neut % (Auto) Lymph % (Auto) [place] % (Auto) Eos % (Auto) Baso % (Auto) Absolute Neuts (auto) Absolute Lymphs (auto) Nucleated RBC % PT 14.1 INR 1.1 Sodium Potassium Chloride Carbon Dioxide Anion Gap BUN Creatinine Estim Creat Clear Calc Est GFR (MDRD) Af Amer Est GFR (MDRD) Non-Af BUN/Creatinine Ratio Glucose Calcium Total Bilirubin AST ALT Alkaline Phosphatase Total Protein Albumin Globulin Albumin/Globulin Ratio Lipase 41 L POC Glucose Discharge Plan Triage Chief Complaint: GI Bleed ED Provider: Rosendo Urrutia Dx/Rx/DC Orders Clinical Impression: Hematemesis, Hernia, hiatal, Anticoagulated Instructions: ED Upper GI Bleeding (Stable) Prescriptions: New pantoprazole 40 mg tablet,delayed release (DR/EC) 40 mg PO DAILY 90 Days Qty: 97 0RF Rx Instructions: 1 cap po BID for first week, then 1 cap po daily ondansetron [ondansetron] 4 mg tablet,disintegrating 8 mg PO Q8H PRN PRN (Reason: Nausea) Qty: 14 0RF Continued amlodipine [Norvasc] 5 mg tablet 5 mg PO DAILY losartan 100 mg tablet 100 mg PO QHS Saccharomyces boulardii [Daily Probiotic (S. boulardii)] 250 mg capsule 250 mg PO QHS chlorthalidone 25 mg tablet 25 mg PO DAILY albuterol sulfate [ProAir HFA] 90 mcg/actuation HFA aerosol inhaler 1 inh inhalation Q6H PRN PRN (Reason: SOB) triamcinolone acetonide [Nasacort] 55 mcg aerosol,spray 1 spray intranasal DAILY PRN (Reason: Congestion) Rx Instructions: administer into each nostril lorazepam 0.5 mg tablet 0.5 mg PO DAILY PRN potassium chloride [Klor-Con M20] 20 tablet,ER particles/crystals 20 mcg PO QHS levothyroxine [Synthroid] 50 tablet 75 mcg PO DAILY fluticasone propion-salmeterol [Advair Diskus] 0 blister with device 1 puff IH DAILY cholecalciferol (vitamin D3) 2,000 UNIT capsule 2,000 unit PO QHS montelukast 5 MG tablet,chewable 5 mg PO DAILY simvastatin 20 MG tablet 20 mg PO QHS Qty: 30 0RF Centrum Silver Women 1 tab DAILY insulin aspart U-100 [Novolog FlexPen U-100 Insulin] 100 unit/mL (3 mL) insulin pen 14 unit SUBCUT DINNER Rx Instructions: 12 units breakfast, 12 units at lunch, 14units at dinner insulin glargine [Basaglar KwikPen U-100 Insulin] 100 unit/mL (3 mL) insulin pen 15 unit SUBCUT QHS Rx Instructions: 15units at bedtime insulin aspart U-100 [Novolog FlexPen U-100 Insulin] 100 unit/mL (3 mL) insulin pen 12 unit SUBCUT LUNCH insulin aspart U-100 [Novolog FlexPen U-100 Insulin] 100 unit/mL (3 mL) insulin pen 12 unit SUBCUT BREAKFAST oxycodone 5 mg Tablet 5 mg PO Q4H PRN PRN (Reason: Pain Score 4-10) 3 Days Qty: 18 0RF Held Eliquis DVT-PE Treat 30D Start 5 mg (74 tabs) tablets,dose pack 5 mg PO BID Qty: 74 0RF Hold Instructions: Resume on 07/09/22. Rx Instructions: take 10mg (2 tabs) twice daily till March 14 2022, then continue from March 15 2022 with 5mg (one tab) twice daily Discontinued omeprazole 40 mg capsule,delayed release(DR/EC) 20 mg PO QHS Primary Care Provider: Agnes Velazquez Referrals: Agnes Velazquez DO [Primary Care Provider] - 3-5 Days Disposition Disposition: Home, Self Care
[2022-07-03 21:19] LABS: International Normalized Ratio 1.1; Prothrombin Time (Protime)PT. 14.1 SECONDS (11.7-14.9)
[2022-07-03] MEDS: Ondansetron 4 MG/2 ML Vial IV (21:25)
[2022-07-03 21:35] LABS: Anion Gap 5 (5-15); BUN 19 mg/dL (7-18); BUN/Creat Ratio 18.3 RATIO (10-20); Calcium,Total 9.1 mg/dL (8.5-10.1); Chloride 107 mmol/L (98-107); Creatinine, Serum 1.04 mg/dL (0.55-1.02); EST Glomerular Filtration Rate 56 mL/min (>60); Est Glom Filt Rate - Afr Amer 68 mL/min (>60); Estimated Creatinine Clearance 39.61 ml/min; Glucose 175 mg/dL (74-106); Potassium 3.6 mmol/L (3.5-5.1); Sodium Level 143 mmol/L (136-145)
[2022-07-03 22:45] LABS: Lipase 41 U/L (73-393)
[2022-07-03 23:32] LABS: ALB/GLOB Ratio 0.9 RATIO (0.9-2.4); AST(SGOT) 17 U/L (15-37); Alanine Aminotransfer ALT/SGPT 17 U/L (13-56); Albumin, Serum 3.2 g/dL (3.2-5.0); Alkaline Phosphatase 89 U/L (45-117); Globulin 3.6 g/dL (2.2-4.2); Protein, Total 6.8 g/dL (6.4-8.2)
[2022-07-04 00:30] VITALS: BP 116/69; PULSE 63; RESP 18; O2SAT 97
== END 2022-07-04 00:53 | disposition home or self-care (01) ==
PROVIDERS: Emergency Provider Emergency Medicine; PCP Internal Medicine; Visit Provider Emergency Medicine
DX: K92.0 Hematemesis (principal); E66.01 Morbid (severe) obesity due to excess calories; Z68.42 Body mass index [BMI] 45.0-49.9, adult; Z79.4 Long term (current) use of insulin; E10.9 Type 1 diabetes mellitus without complications; E03.9 Hypothyroidism, unspecified; K44.9 Diaphragmatic hernia without obstruction or gangrene; I10 Essential (primary) hypertension; Z79.01 Long term (current) use of anticoagulants; Z79.899 Other long term (current) drug therapy; Z86.718 Personal history of other venous thrombosis and embolism
CPT/HCPCS: 80053; 82962; 83690; 85025; 85610; 96374; 99283; J7040; A4216; J2405; J3490

== ENCOUNTER 2022-09-07 10:34 | Outpatient (CLI) | payer OTHER, SELFPAY ==
[2022-09-07 11:10] LABS: Erythrocyte Sedimentation Rate 29 mm/hr (0-30)
[2022-09-07 11:14] LABS: Absolute Lymphocyte Count 1.96 X10^3/uL (0.83-4.51); Absolute Neutrophil Count 4.8 X10^3/uL (2.0-7.7); Basophil# 0.06 X10^3/uL; Basophil% 0.8 % (0-1); Eosinophil# 0.16 X10^3/uL; Eosinophils% 2.1 % (0-5); Hemoglobin 13.4 g/dL (12.0-15.0); Lymphocyte # 1.96 X10^3/ul (0.83-4.51); Lymphocyte % 25.7 % (19-41); Mean Corp Hgb Conc 31.9 g/dL (32-36); Mean Corpuscular Hgb 27.1 pg (27.0-32.0); Mean Corpuscular Volume 84.8 fL (81-99); Mean Platelet Vol. 11.6 fl (6.2-12.0); Monocyte# 0.64 X10^3/uL; Monocyte% 8.4 % (0-10); NRBC Flagged by Analyzer 0 % (0-5); Neutrophil % 62.7 % (47-70); Platelet Count 310 K/mm3 (150-450); Red Blood Count 4.95 M/mm3 (4.2-5.4); White Blood Count 7.6 K/mm3 (4.4-11.0)
[2022-09-07 11:19] LABS: International Normalized Ratio 1.1; Prothrombin Time (Protime)PT. 14.2 SECONDS (11.7-14.9)
[2022-09-07 12:03] LABS: ALB/GLOB Ratio 0.9 RATIO (0.9-2.4); AST(SGOT) 20 U/L (15-37); Alanine Aminotransfer ALT/SGPT 15 U/L (13-56); Albumin, Serum 3.4 g/dL (3.2-5.0); Alkaline Phosphatase 92 U/L (45-117); Anion Gap 10 (5-15); BUN 23 mg/dL (7-18); BUN/Creat Ratio 26.6 RATIO (10-20); Chloride 107 mmol/L (98-107); Creatinine, Serum 0.86 mg/dL (0.55-1.02); EST Glomerular Filtration Rate 69 mL/min (>60); Est Glom Filt Rate - Afr Amer 84 mL/min (>60); Ferritin 6 ng/mL (8-252); Globulin 3.8 g/dL (2.2-4.2); Glucose 75 mg/dL (74-106); LDH 196 U/L (84-246); Potassium 3.2 mmol/L (3.5-5.1); Protein, Total 7.2 g/dL (6.4-8.2); Sodium Level 142 mmol/L (136-145)
[2022-09-07 12:05] LABS: HIV - WCH Non-Reactive (Nonreactive)
[2022-09-07 14:35] LABS: Iron 46 ug/dL (50-170)
[2022-09-08 17:07] LABS: Anti-Centromere B Ab <0.2 AI (0.0-0.9); Anti-Chromatin <0.2 AI (0.0-0.9); Anti-Jo <0.2 AI (0.0-0.9); Anti-Mitochondrial AB <20.0 Units (0.0-20.0); Anti-Scleroderma-70 AB <0.2 AI (0.0-0.9); Anti-dsDNA Ab <1 IU/mL (0-9); RNP Ab 0.2 AI (0.0-0.9); SJOGREN'S Anti-SS-A test < 0.2 AI (0.0-0.9); SJOGREN'S Anti-SS-B test < 0.2 AI (0.0-0.9); Smith Ab <0.2 AI (0.0-0.9)
[2022-09-09 00:06] LABS: AFP, Tumor Marker 2.2 ng/mL (0.0-9.2); Angiotensin Convert Enzyme 37 U/L (14-82); Anti-Smooth Muscle ABS 8 Units (0-19); Ceruloplasmin 33.1 mg/dL (19.0-39.0); Copper, Serum or Plasma 151 ug/dL (80-158); Cytoplasmic Ab (C-ANCA) <1:20 titer (Neg:<1:20); HEPATITIS B SURFACE AG Negative (Negative); Haptoglobin 228 mg/dL (37-355); Hep C Antibodies Non Reactive (Non Reactive); Hepatitis A IgM Antibody Negative (Negative); Hepatitis B Core AB IgM Negative (Negative); Perinuclear Ab (P-ANCA) <1:20 titer (Neg:<1:20)
== END 2022-09-07 23:59 | disposition home or self-care (01) ==
LOC: LAB 10:36
PROVIDERS: Nurse Practitioner Adult Health; PCP Internal Medicine
DX: K76.0 Fatty (change of) liver, not elsewhere classified (principal)
CPT/HCPCS: 36415; 80053; 80074; 82105; 82140; 82164; 82390; 82525; 82728; 83010; 83036; 83516; 83540; 83615; 85025; 85610; 85652; 86140; 86225; 86235; 86256; 86703

== ENCOUNTER → 2022-09-09 | Outpatient (CLI) | payer OTHER, SELFPAY ==
[2022-09-12 20:07] LABS: Pancreatic Elastase, Fecal 259 (>200)
== END | disposition home or self-care (01) ==
LOC: LAB 12:29
PROVIDERS: PCP Internal Medicine; Referring Provider Nurse Practitioner Adult Health; Visit Provider Nurse Practitioner Adult Health
DX: R11.2 Nausea with vomiting, unspecified (principal); E10.9 Type 1 diabetes mellitus without complications
CPT/HCPCS: 82653

== ENCOUNTER → 2023-04-13 | Outpatient (CLI) | payer OTHER, SELFPAY ==
--- NOTE | 2023-04-13 14:32 | BI_ITS ---
MAMMOGRAPHY - BILATERAL SCREENING REASON FOR EXAM: Female, 67 years old. Routine annual screening examination. PERTINENT HISTORY: Grandmother with breast cancer. Remote left medial breast biopsy and right excisional breast biopsy. TECHNIQUE: Digital bilateral breast randal (3D mammographic acquisition) in the CC and MLO projections. 2-D mediolateral oblique (MLO) and craniocaudad (CC) views of both breasts were obtained. CAD: Full Field Digital Mammography with Computer Added Detection was performed. COMPARISON: Comparison is made with prior study dated March 15, 2021 and May 27, 2016 FINDINGS: Breast Composition: The breasts are almost entirely fatty. There are no dominant masses or suspicious calcifications. A tissue clip marker is seen in the upper slightly lateral aspect of the right breast. Stable benign-appearing bilateral axillary nodes. No other significant abnormalities are identified. There has been no significant change since the prior study. BI/SCRN MAMM (CAD)W/RANDAL BILAT IMPRESSION: Stable bilateral screening mammogram. Yearly follow-up mammogram recommended. (A) ASSESSMENT CATEGORY: BIRADS Category 2: Benign. A letter regarding these results will be sent to the patient by the facility within 30 days. Approximately 10% of breast cancers are not detected by mammography. A normal mammogram should not delay biopsy of a clinically suspicious abnormality. [id number] Electronically Signed: Jose Miguel Prado MD at 14:27 EST ,
== END | disposition home or self-care (01) ==
LOC: OPBI 14:31
PROVIDERS: PCP Internal Medicine; Referring Provider Internal Medicine; Visit Provider Internal Medicine
DX: Z12.31 Encounter for screening mammogram for malignant neoplasm of breast (principal); Z80.3 Family history of malignant neoplasm of breast
CPT/HCPCS: 77063; 77067

== ENCOUNTER 2023-08-26 16:27 | Emergency (ER) | payer OTHER, SELFPAY ==
[2023-08-26 16:27] VITALS: BP 103/47; PULSE 94; RESP 16; TEMP 37; O2SAT 99; BMI 44.0
[2023-08-26 16:29] VITALS: BP 103/47; PULSE 94; RESP 16; TEMP 37; O2SAT 99
[2023-08-26 16:43] LABS: Mucous, Urine 0 SEEN /hpf (<or=2+)
[2023-08-26 16:44] LABS: Color, Urine Yellow (Yellow); Glucose, Dipstick Normal (Normal); Ketone-Dipstick 5 mg/dl (Negative); Leukocyte Esterase-Dipstick 500 /ul (Negative); Nitrite-Dipstick Positive (Negative); Occult Blood-Urine 250 /ul (Negative); Protein-Dipstick 100 mg/dl (Negative); Urine Bilirubin Dipstick Negative (Negative); Urine Clarity Cloudy (Clear); Urine Urobilinogen 1 mg/dl (Normal)
[2023-08-26 16:51] LABS: Red Blood Cells-Urine > 100 SEEN /hpf (0-5)
[2023-08-26 16:53] LABS: Bacteria 1+ /hpf (None Seen); Squamous Epithelial Cells - UA 0-5 SEEN /hpf (5-10); White Blood Cells 25-50 SEEN /hpf (0-5)
--- NOTE | 2023-08-26 17:14 | EDS_ITS ---
HPI <ALEXI Gonzalez - Last Filed: 08/26/23 17:15> History of Present Illness Chief Complaint: Complaint Narrative Narrative: 67-year-old female with past medical history of type 2 diabetes presents with a few days of frequency and burning with urination. She tried cranberry supplements without relief. Today noted blood in her urine. She has no fever or chills, nausea or vomiting, abdominal or flank pain. PFSH <ALEXI Gonzalez - Last Filed: 08/26/23 17:15> [facility] Medical History Anemia Anxiety Anxiety and depression Arthritis Asthma Asthma Back pain Bilateral primary osteoarthritis of knee Blackout Cardiology follow-up encounter Chest pain Dehydration Diabetes mellitus type 1 Dietary restriction Easy bruising Elevated C-reactive protein (CRP) Fatty liver Fracture of lateral condyle of left tibia Heartburn Hepatomegaly Hiatal hernia High cholesterol History of benign breast biopsy History of edema History of hiatal hernia Hyperlipidemia Hypertension Hypertension Hypomagnesemia Hypothyroidism Insulin dependent diabetes mellitus Iron deficiency Leg cramps Migraine headache Morbid obesity Non-smoker Patella fracture Restless legs Shortness of breath on exertion Syncope Thyroid disease Tubular adenoma Wears glasses Home Medications ?Medication ?Instructions ?Recorded ?Last Taken ?Type fluticasone 500 mcg-salmeterol 50 1 puff IH DAILY 04/21/18 09/25/18 History mcg/dose blistr powdr for inhalation (Advair Diskus) levothyroxine 50 mcg tablet 75 mcg PO DAILY 04/21/18 04/21/21 06:00 History (Synthroid) potassium chloride 20 mEq 20 mcg PO QHS 04/21/18 09/24/18 History tablet,extended release(part/cryst) (Klor-Con M) cholecalciferol (vitamin D3) 50 2,000 unit PO QHS 09/25/18 09/25/18 History mcg (2,000 unit) capsule montelukast 5 mg chewable tablet 10 mg PO DAILY 09/25/18 09/23/18 History simvastatin 20 mg tablet 20 mg PO QHS #30 tabs 09/28/18 03/03/22 Rx Saccharomyces boulardii 250 mg 250 mg PO QHS 01/25/21 Unknown History capsule (Daily Probiotic (S. boulardii)) albuterol sulfate 90 mcg/actuation 1 inh inhalation Q6H PRN PRN SOB 01/25/21 04/21/21 06:00 History aerosol inhaler (ProAir HFA) amlodipine 5 mg tablet (Norvasc) 5 mg PO DAILY blood pressure 01/25/21 04/21/21 06:00 History chlorthalidone 25 mg tablet 25 mg PO DAILY 01/25/21 Unknown History losartan 100 mg tablet 100 mg PO QHS 01/25/21 Unknown History triamcinolone acetonide 55 mcg 1 spray intranasal DAILY PRN 01/25/21 Unknown History nasal spray aerosol (Nasacort) Congestion insulin aspart U-100 100 unit/mL 8 unit subcut BREAKFAST dm 03/06/22 Unknown History (3 mL) subcutaneous pen (Novolog FlexPen U-100 Insulin aspart) insulin aspart U-100 100 unit/mL 9 unit subcut DINNER DM 03/06/22 Unknown History (3 mL) subcutaneous pen (Novolog FlexPen U-100 Insulin aspart) insulin aspart U-100 100 unit/mL 9 unit subcut LUNCH DM 03/06/22 Unknown History (3 mL) subcutaneous pen (Novolog FlexPen U-100 Insulin aspart) insulin glargine 100 unit/mL (3 10 unit subcut QHS 03/06/22 Unknown History mL) subcutaneous pen (Basaglar KwikPen U-100 Insulin) ondansetron 4 mg disintegrating 8 mg (2 x 4 mg) PO Q8H PRN PRN 07/04/22 Unknown Rx tablet Nausea #14 tabs aspirin 81 mg capsule 81 mg PO DAILY 08/26/23 Unknown History nitrofurantoin 100 mg PO BID 5 days #10 caps 08/26/23 Unknown Rx monohydrate/macrocrystals 100 mg capsule (Macrobid) omeprazole 20 mg capsule,delayed 20 mg PO DAILY 08/26/23 Unknown History release phenazopyridine 200 mg tablet 200 mg PO BID PRN PRN Pain #10 tabs 08/26/23 Unknown Rx (Pyridium) Allergy/AdvReac Type Severity Reaction Status Date / Time Penicillins (PCN) Allergy Anaphylaxis Verified 08/26/23 16:28 oxycodone (From OxyIR) AdvReac Nausea Verified 08/26/23 16:28 Family History Mother CAD (coronary artery disease) Hypertension Father Diabetes Heart disease Sister CVA (cerebral vascular accident) Diabetes Brother Diabetes Surgical History H/O section History of cardiac catheterization Hx of colonoscopy S/P tonsillectomy and adenoidectomy S/P tubal ligation Social History household members: none Smoking Status: Never smoker alcohol intake: current alcohol intake frequency: holidays/special occasions only substance use type: does not use ROS <ALEXI Gonzalez Last Filed: 08/26/23 17:15> ROS ED ROS Narrative Constitutional: Negative for fever, chills, malaise. GI: Negative for abdominal pain, nausea, vomiting. : Positive for dysuria, hematuria or frequency. EXAM <ALEXI Gonzalez Last Filed: 08/26/23 17:15> Physical Exam Narrative Exam Narrative: CONST: Patient sitting in no acute distress. EYES: Normal inspection. NECK: Normal inspection. RESP: No respiratory distress, CTAB. CVS: Regular rate and rhythm, no murmur, no gallop. ABD: Soft and nontender, no guarding or rebound, nondistended. Back: Normal inspection, no CVA tenderness. SKIN: Color normal, no rash, warm, dry, intact. EXTREMITIES: Normal appearance, no pedal edema. NEURO: Alert and answering questions appropriately. PSYCH: Normal affect. Const Vital Signs: 08/26/23 16:27 08/26/23 16:29 Temperature 98.6 F 98.6 F Temperature Source Temporal Temporal Pulse Rate 94 94 Respiratory Rate 16 16 Blood Pressure 103/47 L 103/47 L Blood Pressure Mean 65 65 Pulse Ox 99 99 <Dr. Shaheen Angel DO - Last Filed: 08/26/23 17:24> Physical Exam Const Vital Signs: 08/26/23 16:27 08/26/23 16:29 Temperature 98.6 F 98.6 F Temperature Source Temporal Temporal Pulse Rate 94 94 Respiratory Rate 16 16 Blood Pressure 103/47 L 103/47 L Blood Pressure Mean 65 65 Pulse Ox 99 99 MDM <ALEXI Gonzalez Last Filed: 08/26/23 17:15> [facility] Narrative Medical decision making narrative: Patient has symptoms of UTI. Appears well and nontoxic. Hemodynamically stable and afebrile. Urinalysis is consistent with UTI. She has no signs or symptoms concerning for kidney stone or pyelonephritis and at this time does not require blood work or imaging. Urine was cultured and I prescribed Macrobid and Pyridium. First dose of antibiotic given in ED. She was discharged in stable condition. Lab Data Labs: Laboratory Results - last 24 hr 08/26/23 16:35 Urine Color Yellow Urine Clarity Cloudy Urine pH 5.0 Ur Specific [place] 1.020 Urine Protein 100 H Urine Glucose (UA) Normal Urine Ketones 5 H Urine Occult Blood 250 H Urine Nitrite Positive H Urine Bilirubin Negative Urine Urobilinogen 1 H Ur Leukocyte Esterase 500 H Urine RBC > 100 SEEN Urine WBC 25-50 SEEN Ur Squamous Epith Cells 0-5 SEEN Urine Bacteria 1+ Urine Mucus 0 SEEN <Dr. Shaheen Angel DO - Last Filed: 08/26/23 17:24> [facility] Narrative Medical decision making narrative: Patient has symptoms of UTI. Appears well and nontoxic. Hemodynamically stable and afebrile. Urinalysis is consistent with UTI. She has no signs or symptoms concerning for kidney stone or pyelonephritis and at this time does not require blood work or imaging. Urine was cultured and I prescribed Macrobid and Pyridium. First dose of antibiotic given in ED. She was discharged in stable condition. I have personally performed a face to face assessment of the patient and have reviewed the DEBORA Note. I performed a substantive portion of the visit including all aspects of the following. My [place] findings include: History is 67-year-old female states that this week she has had some suprapubic discomfort and urinary frequency and burning with urination. She has been taking some cranberry pills which has helped her in the past but not this week. Today she felt warm noted some blood in the urine. She feels like she is emptying her bladder but continues to have urinary frequency. She is a diabetic. She states that she is not prone to many urinary tract infections. She denies back pain definitive fever nausea or vomiting Exam is afebrile vital signs are stable well-appearing female sitting comforta waylon in a chair. Mild suprapubic tenderness. No CVA tenderness. Medical Decison Making urinalysis greater than 100 red blood cells 25-50 white cells 1+ bacteria positive nitrates positive leukocyte esterase. Will be sent for culture. Will start her on Macrobid and Pyridium. She understands return instructions return if worsening or concerns History & Record Review Discussion w/independent historian: Patient Lab Data Attestation: I reviewed the patient's lab results. Labs: Laboratory Results - last 24 hr 08/26/23 16:35 Urine Color Yellow Urine Clarity Cloudy Urine pH 5.0 Ur Specific [place] 1.020 Urine Protein 100 H Urine Glucose (UA) Normal Urine Ketones 5 H Urine Occult Blood 250 H Urine Nitrite Positive H Urine Bilirubin Negative Urine Urobilinogen 1 H Ur Leukocyte Esterase 500 H Urine RBC > 100 SEEN Urine WBC 25-50 SEEN Ur Squamous Epith Cells 0-5 SEEN Urine Bacteria 1+ Urine Mucus 0 SEEN Discharge Plan Triage Chief Complaint: Complaint ED Midlevel Provider: Sarah Walsh ED Provider: Shaheen Angel Dx/Rx/DC Orders Clinical Impression: Acute UTI Instructions: Urinary Tract Infections in Women Prescriptions: New nitrofurantoin monohyd/m-cryst [Macrobid] 100 mg capsule 100 mg PO BID 5 Days Qty: 10 0RF Rx Instructions: must administer with a meal/food phenazopyridine [Pyridium] 200 mg tablet 200 mg PO BID PRN PRN (Reason: Pain) Qty: 10 0RF No Action amlodipine [Norvasc] 5 mg tablet 5 mg PO DAILY losartan 100 mg tablet 100 mg PO QHS Saccharomyces boulardii [Daily Probiotic (S. boulardii)] 250 mg capsule 250 mg PO QHS chlorthalidone 25 mg tablet 25 mg PO DAILY albuterol sulfate [ProAir HFA] 90 mcg/actuation HFA aerosol inhaler 1 inh inhalation Q6H PRN PRN (Reason: SOB) triamcinolone acetonide [Nasacort] 55 mcg aerosol,spray 1 spray intranasal DAILY PRN (Reason: Congestion) Rx Instructions: administer into each nostril potassium chloride [Klor-Con M20] 20 tablet,ER particles/crystals 20 mcg PO QHS levothyroxine [Synthroid] 50 tablet 75 mcg PO DAILY fluticasone propion-salmeterol [Advair Diskus] 0 blister with device 1 puff IH DAILY cholecalciferol (vitamin D3) 2,000 UNIT capsule 2,000 unit PO QHS montelukast 5 MG tablet,chewable 10 mg PO DAILY simvastatin 20 MG tablet 20 mg PO QHS Qty: 30 0RF insulin aspart U-100 [Novolog FlexPen U-100 Insulin] 100 unit/mL (3 mL) insulin pen 9 unit SUBCUT DINNER Rx Instructions: 12 units breakfast, 12 units at lunch, 14units at dinner insulin glargine [Basaglar KwikPen U-100 Insulin] 100 unit/mL (3 mL) insulin pen 10 unit SUBCUT QHS Rx Instructions: 15units at bedtime insulin aspart U-100 [Novolog FlexPen U-100 Insulin] 100 unit/mL (3 mL) insulin pen 9 unit SUBCUT LUNCH insulin aspart U-100 [Novolog FlexPen U-100 Insulin] 100 unit/mL (3 mL) insulin pen 8 unit SUBCUT BREAKFAST ondansetron [ondansetron] 4 mg tablet,disintegrating 8 mg PO Q8H PRN PRN (Reason: Nausea) Qty: 14 0RF omeprazole 20 mg capsule,delayed release(DR/EC) 20 mg PO DAILY aspirin 81 mg capsule 81 mg PO DAILY Primary Care Provider: Agnes Velazquez Referrals: Agnes Velazquez, [Primary Care Provider] - Activity Restrictions/Additional Instructions: I prescribed an antibiotic and phenazopyridine which helps the symptoms of burning and discomfort. This will turn your urine orange which is a normal side effect. Please follow-up with your primary care doctor or return if symptoms worsen. Print Language: Jamaican Disposition Disposition: Home, Self Care
[2023-08-26 17:30] VITALS: BP 137/78; PULSE 86; RESP 20; TEMP 36.5; O2SAT 93
== END 2023-08-26 17:31 | disposition home or self-care (01) ==
PROVIDERS: Physician Assistant; Emergency Provider Emergency Medicine; PCP Internal Medicine; Visit Provider Emergency Medicine
DX: N39.0 Urinary tract infection, site not specified (principal); Z79.4 Long term (current) use of insulin; E11.9 Type 2 diabetes mellitus without complications; E78.00 Pure hypercholesterolemia, unspecified; I10 Essential (primary) hypertension; E03.9 Hypothyroidism, unspecified; Z79.899 Other long term (current) drug therapy; R12 Heartburn; J45.909 Unspecified asthma, uncomplicated; Z79.51 Long term (current) use of inhaled steroids; Z98.51 Tubal ligation status
CPT/HCPCS: 81001; 87077; 87086; 87088; 87186; 99282

== ENCOUNTER → 2024-08-13 | Outpatient (CLI) | payer OTHER, SELFPAY ==
--- NOTE | 2024-08-13 09:59 | BI_ITS ---
EXAM: SCRN MAMM (CAD)W/RANDAL BILAT DATE: 08/13/2024 CLINICAL HISTORY: F, Age 68 y/o , SCREENING BREAST CANCER RISK ASSESSMENT: Not reported TECHNIQUE: Bilateral screening digital breast tomosynthesis with 2D and 3D images. Computer aided detection. COMPARISON: Prior exam(s) were compared FINDINGS: TISSUE DENSITY: The breast tissue is almost entirely fatty. Bilateral Breast Mammographic Findings: No suspicious masses, calcifications or other abnormalities are identified. BI/SCRN MAMM (CAD)W/RANDAL BILAT IMPRESSION: OVERALL FINAL ASSESSMENT: BIRADS 1 NEGATIVE RECOMMENDATION: Routine annual follow-up in 1 Year A letter with findings and recommendations will be mailed to the patient. Reading Location: [id number]
--- NOTE | 2024-08-13 10:01 | BD_ITS ---
PROCEDURE: DEXA BONE DENSITY STUDY 08/13/2024 REASON FOR EXAM: History of adult fracture F, age 68 y/o . Postmenopausal. TECHNIQUE: DEXA scan of sites with data reported below. Scanner utilized: [employer] REFERENCE LINKS: [facility] Positions COMPARISON: None FINDINGS: BMD and T-SCORES Lumbar spine: 0.959 g/cm2, T-score -0.8 Levels: L1 through L4 Left femoral neck: 0.719 g/cm2, T-score -1.2 Left total hip: 0.906 g/cm2, T-score -0.3 Right femoral neck: 0.672 g/cm2, T-score -1.6 Right total hip: 0.827 g/cm2, T-score -0.9 The World Health Organization has defined the following categories based on bone density: Normal bone density: T-score equal to or greater than -1.0 Osteopenia: T-score between -1.0 and -2.5 Osteoporosis: T-score equal to or less than -2.5 FRAX (or Comparable) Fracture Risk Assessment: 10 Year Probability of Fracture: Major Osteoporotic Fracture: 32% Hip Fracture: 6.2% (Note: FRAX is not to be reported in setting of normal range bone density, osteoporosis on DEXA, known history of osteoporosis, prior osteoporotic hip or vertebral fracture, or for any patient undergoing pharmacological treatment for bone loss.) The National Osteoporosis Foundation (NOF) recommends pharmacological treatment for patients with a FRAX 10-year risk of 3% or higher for a hip fracture, or 20% or higher for a major osteoporotic fracture, to prevent osteoporosis and reduce fracture risk. The patient does meet the pharmacological treatment recommendations for prevention of osteoporosis. BD/Dexa Bone Density Study IMPRESSION: OSTEOPENIA. Recommend follow-up as clinically warranted. Reading Location: [id number]
== END | disposition home or self-care (01) ==
LOC: OPBD 09:55
PROVIDERS: PCP Internal Medicine; Referring Provider Internal Medicine; Visit Provider Internal Medicine
DX: Z12.31 Encounter for screening mammogram for malignant neoplasm of breast (principal); Z78.0 Asymptomatic menopausal state
CPT/HCPCS: 77063; 77067; 77080